=== PATIENT | female | born 1970 | race Caucasian/White ===

== ENCOUNTER 2017-05-24 13:27 | Inpatient (IN) ==
[2017-05-24 14:04] LABS: URINE CULTURE NEEDED? NO; URINE MICRO REVIEW NEEDED? NO; URINE SOURCE CLEAN CATCH
[2017-05-24 14:08] LABS: BILIRUBIN URINE NEGATIVE (NEGATIVE); BLOOD URINE SMALL (NEGATIVE); COLOR STRAW; GLUCOSE URINE >1000 mg/dL (NEGATIVE); LEUKOCYTES URINE NEGATIVE (NEGATIVE); NITRITE URINE NEGATIVE (NEGATIVE); PH URINE 5.5; PROTEIN URINE 100 mg/dL (NEGATIVE); SP GRAVITY URINE 1.024; TURBIDITY URINE CLEAR (CLEAR); UR EPITHELIAL CELLS <10 /HPF (<10); URINE BACTERIA 1+ /HPF; URINE RBC <10 /HPF (<10); URINE WBC <10 /HPF (<10); UROBILINOGEN URINE NORMAL (NORMAL)
[2017-05-24] MEDS ORDERED: ZOSYN 3.375 GM in NS 50 ML IV ONE (14:17)
--- NOTE | 2017-05-24 14:26 | PROVIDER DOCUMENTATION ---
HPI-General Adult - General Chief Complaint: General Adult Stated Complaint: INFECTED TOE/UTI SX Time Seen by Provider: 05/24/17 14:07 Source: patient Allergies/Adverse Reactions: Patient Allergies Allergy/AdvReac Type Severity Reaction Status Date / Time Sulfa (Sulfonamide AdvReac NAUSEA/VOMI Verified 05/24/17 15:37 Antibiotics) TING Home Medications: Home Medication List Medication Instructions Recorded Confirmed Last Taken Type LISINOpril [Prinivil] 20 mg PO DAILY #90 tablet 08/31/16 05/24/17 05/24/17 Rx - History of Present Illness -Gen Adult Nature of Presenting Problems: 46 y/o WF with a PMHx of DM, HTN and HLD, presenting today with two complaints: 1.) Possible UTI. Denies dysuria, but reports frequency and urgency. States there is "bubbling" after she urinates. Denies itching or discharge. She did just recently get 1 week ago. Denies fevers or chills. 2.) Wound to the right great toe: patient was previously hospitalized in August 2016 for a diabetic foot ulcer with MRSA. She states she completed a 2 week course of Vanc through a PICC in the left arm afterwards. She then lost her insurance and has not been able to seek medical treatment. She has been noncompliant with her medications, including her diabetic medications. Denies fevers, reports chills. The wound is in the same location as prior, stating she has lost feeling in the toe, it has become more pale, and a foul odor has developed. Denies discharge or loss of function. Review of Systems - Adult - REVIEW OF SYSTEMS - ADULT Constitutional: reports: see HPI, chillsreji. denies: fever Eyes: reports: no symptoms reported. denies: decreased vision, blurred vision, double vision, eye pain Ears, Nose, Mouth & Throat: reports: no symptoms reported. denies: ear pain, nose pain, throat pain Cardiovascular: reports: no symptoms reported. denies: chest pain, palpitations Respiratory: reports: no symptoms reported. denies: cough, shortness of breath , wheezing Gastrointestinal: reports: no symptoms reported. denies: abdominal pain, diarrhea, nausea, vomiting Genitourinary: reports: see HPI, frequency, hesitency. denies: dysuria, discharge, hematuria, incontinence Musculoskeletal: reports: see HPI, bone pain. denies: back pain, joint pain, muscle aches, neck pain Integumentary: reports: no symptoms reported. denies: rash Neurological: reports: no symptoms reported. denies: headache/migraines Psychiatric: reports: no symptoms reported Endocrine: reports: no symptoms reported Hematologic/Lymphatic: reports: no symptoms reported Allergic/Immunologic: reports: no symptoms reported All Other Systems: Reviewed and Negative Past History - Adult - PAST MEDICAL HISTORY-ADULT Review of Records: reports: Old Records Reviewed, Nursing Assessment Review, Medications Reviewed Major Childhood Illnesses: reports: denies history Cardiovascular: reports: HTN, hyperlipidemia Respiratory: reports: denies history Gastrointestinal: reports: GERD Obstetrical/Gynecological: reports: denies history Genitourinary: reports: denies history Musculoskeletal: reports: denies history Neurological: reports: denies history Endocrine/Immune: reports: Diabetes Other Conditions: reports: denies history - PRIOR SURGERIES/PROCEDURES Surgical/Procedure History: reports: BTL, - IMMUNIZATION STATUS Childhood Immunizations: UTD, See Nurse Assessment Flu Vaccine: See Nurse Assessment - FAMILY HISTORY Family History: HTN - SOCIAL HISTORY Smoking: less than 1 pack/day Provider spent 3-5 mins advising pt. on dangers of tobacco.: Discussed manners to quit use, and f/u contacts for add'l counseling. Substance Use: none/never Alcohol Use Frequency: never Living Situation: family Physical Exam-General - PHYSICAL EXAM-ADULT Initial Vital Signs Reviewed: Yes - CONSTITUTIONAL General Appearance: appears well, alert, no apparent distress - EYES Eyes: PERRL/EOMI, pink conjunctivae - HEAD, EARS, NOSE, MOUTH & THROAT HENMT: normocephalic/atraumatic, moist mucous membranes - NECK Neck: non-tender, full range of motion, supple, normal inspection - RESPIRATORY Respiratory: chest non-tender, lungs clear, normal breath sounds, no pleuratic chest pain, no respiratory distress, no accessory muscle use. negative: respiratory distress, decreased breath sounds, accessory muscle use, crackles, rales, rhonchi, wheezing - CARDIOVASCULAR Cardiovascular: normal peripheral pulses, regular rate, rhythm, no edema, no gallop, no murmur - LYMPHATIC Lymphatic: no adenopathy - MUSCULOSKELETAL Extremity: normal range of motion, non-tender, normal gait, other (there is an ulcer to the right great toe with subcutaneous exposure, pallor around the site and foul smell. I do not appreciate a purulent discharge. Cap refill at the end of the toe < 2 sec) Peripheral Pulses: dorsalis-pedis (R): 2+, dorsalis-pedis (L): 2+ - SKIN Integumentary: normal color, normal turgor, warm/dry, other (see above) - NEUROLOGIC Neurologic: grossly normal, no motor/sensory deficits - PSYCHIATRIC Psych/Mental Status: normal mood/affect, normal thought content, normal thought process, oriented x 3 Progress - PLAN OF CARE/RESULTS Progress/Plan/Lab Results: Vital Signs - 8 hr 05/24/17 13:45 Temperature 98.1 F Pulse Rate 79 Respiratory Rate 18 Blood Pressure 175/84 O2 Sat by Pulse Oximetry 100 Laboratory Results - last 24 hr 05/24/17 13:51 Urine Source CLEAN CATCH Urine Color STRAW Urine Turbidity CLEAR Urine pH 5.5 Ur Specific [place] 1.024 Urine Protein 100 A Ur Glucose (Stick) >1000 A Ur Ketones (Stick) NEGATIVE Urine Blood SMALL A Urine Nitrite NEGATIVE Urine Bilirubin NEGATIVE Urobilinogen Dipstick NORMAL Urine Leukocytes NEGATIVE Urine WBC (Auto) <10 Urine RBC (Auto) <10 U Epithel Cells (Auto) <10 Urine Bacteria (Auto) 1+ Orders Category Date Time Status Finger Stick Blood Sugar (ED) DIRECTED Care 05/24/17 14:18 Ordered Saline Loc NOW Care 05/24/17 14:16 Ordered TOE(S)-RIGHT [RAD] Stat Exams 05/24/17 14:17 Ordered A1C HGB W EST AVG GLUCOSE [CHEM] Stat Lab 05/24/17 14:16 Uncollected BLOOD CULTURE [BLDCUL] Stat Lab 05/24/17 14:16 Uncollected CBC WITH ELECTRONIC DIFF [HEME] Stat Lab 05/24/17 14:16 Uncollected COMPREHENSIVE METABOLIC PANEL [CHEM] Stat Lab 05/24/17 14:16 Uncollected LACTATE, PLASMA [CHEM] Stat Lab 05/24/17 14:17 Uncollected UA NIMS W/REFLEX CULT [URINALYSIS] Stat Lab 05/24/17 13:51 Completed Zosyn 3.375 gm/Ns IV Now Med 05/24/17 14:17 Ordered Piperacillin/Tazobactam [Zosyn] 3.375 gm 0.9% Sodium Chloride Inj [Ns] [address] Moeller to bedside with patient. Agrees with treatment, disposition and plan. Result Diagrams: 05/24/17 14:38 05/24/17 14:38 - CONSULTS/PCP/HOSPITALIST Notification #1 *Consult/PCP/Hospitalist*: Hospitalist Time Discussed: 16:09 Reason/Comments: diabetic foot ulcer with uncontrolled DM Consult Disposition: Admit Departure - Departure Date of Disposition Decision: 05/24/17 Time of Disposition Decision: 16:08 DIAGNOSIS: Hyperglycemia, Noncompliance Diabetic ulcer of toe Qualifiers: Diabetes mellitus type: type 2 Laterality: right Non-pressure ulcer stage: with fat layer exposed Qualified Code(s): E11.621 - Type 2 diabetes mellitus with foot ulcer Hypertension Qualifiers: Hypertension type: essential hypertension Qualified Code(s): I10 - Essential ( primary) hypertension Disposition: ADMITTED INPATIENT 09 Certified Medical Emergency: Emergent Condition: Stable Referrals and Follow-Ups: None,PCP [Primary Care Provider] - - Critical Care Note This patient required my direct & personal management of CC.: No Attestation - Physician/ JOSE ALBERTO Attestation Patient care was provided by Advanced Practice Provider:: Yes Advanced Practice Provider:: Amy Thompson Advanced Practice Provider documentation review:: The Mid-level provider documentation, treatment plan and medical decision making was reviewed by the physician who agrees with all treatment and medical decision making by the MLP. The physician spent face to face time with patient:: Yes Advanced Practice Provider documentation review:: Supervising physician onsite and consulted in the evaluation and care of this patient. The physician did have a face to face encounter with the patient.
--- NOTE | 2017-05-24 14:33 | Diag Imaging Result Doc PS360 ---
EXAM: TOE(S)-RIGHT INDICATION: right great toe lesion TECHNIQUE: 3 views COMPARISON: Foot radiograph dated 08/28/2016 FINDINGS: There is soft tissue edema involving the great toe laterally suggesting cellulitis. No discrete underlying erosions are appreciated to indicate osteomyelitis on the current study. However, there is a new calcific density associated with the soft tissues at the plantar aspect of the great toe underlying the base of the distal phalanx. This is in the region of a prior ulcer seen on the previous study. It probably represents a dystrophic calcification related to the prior tissue injury. IMPRESSION: Soft tissue edema associated with the great toe and apparent new soft tissue calcification as described. No definite osteomyelitis is appreciated by plain radiograph. Electronically signed by Yoshi Rizzo 05/24/2017 2:31 PM
[2017-05-24] MEDS ORDERED: NS 1,000 ML IV ONE (15:00)
[2017-05-24 15:24] LABS: MANUAL DIFF NEEDED? NO
[2017-05-24 15:31] LABS: BASO% 0.4 % (0.0-0.8); EOS# 0.05 X1000 (0.0-0.7); EOS% 0.9 % (0.0-10.0); HEMATOCRIT 33.1 % (37.0-47.0); HEMOGLOBIN 11.3 g/dL (12.0-16.0); LYMPH# 1.72 X1000 (1.2-3.4); LYMPH% 32.3 % (20.5-51.1); MCH 28.2 PG (27-31); MCHC 34.1 g/dL (33-37); MCV 82.5 FL (81-99); MONO# 0.34 X1000 (0.11-0.59); MONO% 6.4 % (1.7-9.3); MPV 11.5 FL (7.4-10.4); PLT 249 X1000 (130-400); RBC 4.01 XMIL (4.2-5.4)
[2017-05-24 15:58] LABS: ALBUMIN 4.2 g/dL (3.5-5.0); CALCIUM 8.8 mg/dL (8.8-10.2); POTASSIUM 4.2 mmol/L (3.5-5.1); TOTAL BILIRUBIN 0.35 mg/dL (0.20-1.00); TOTAL PROTEIN 7.4 g/dL (6.3-8.3)
[2017-05-24] MEDS ORDERED: VANCOMYCIN IV PER PHARMACY MISC SCH (16:15)
--- NOTE | 2017-05-24 17:57 | HISTORY AND PHYSICAL ---
HISTORY OF PRESENT ILLNESS: This is a 46-year-old, who was here back in August for diabetic foot ulcer. Her past medical history includes poorly-controlled diabetes mellitus type 2 started as gestational diabetes, hypertension and she had been treated in the right foot dorsal toe diabetic foot ulcer. I believe she had debridement and had extended course of IV vancomycin. I think it was a staph by her report. She lost her insurance. I think she stopped antibiotics. It was healing. In the last several weeks she has noticed drainage from that toe, a lot of callous formation. She has neuropathy, so she is not complaining of pain, but she has a purulent odor and drainage from the dorsal toe. Suspect infection again. We will need to admit her, debride it and begin antibiotics again. She has been followed by Dr. Mcpherson in the past. PAST MEDICAL HISTORY: 1. Poorly controlled diabetes mellitus type 2. 2. Hypertension. 3. Hyperlipidemia. 4. Poor medical compliance. 5. Diabetic neuropathy. PAST SURGICAL HISTORY: 1. section. 2. Tubal ligation. SOCIAL HISTORY: Patient denies any alcohol or tobacco. She works as an insurance professional, I think, in [place]. She was employed at the [employer] prior to that. FAMILY HISTORY: Father of myocardial infarction age 48. Her mother of cancer. She also had some female members with history of diabetes. ALLERGIES: Patient reports allergy to sulfa drugs. FAMILY HISTORY: Noncontributory REVIEW OF SYSTEMS: General: She denies any weight gain or loss. No fever or chills. She is not sure how her sugars are running. HEENT: Unremarkable. Respiratory: No increased work of breathing or dyspnea. Cardiovascular: No chest pain or tachy palpitation. GI/: No gross hematuria or dysuria. Musculoskeletal/Neurologic: No focal complaints. She does have peripheral neuropathy which is symmetrical in the lower extremities. PHYSICAL EXAMINATION: VITAL SIGNS: Temperature 98.1 degrees, pulse 79, respirations 18, blood pressure 175/84. HEENT: Pupils are equal and round. CVP less than 6 cm. LUNGS: Clear in all lung conner. CARDIOVASCULAR: Regular rhythm and rate without murmur or S3. ABDOMEN: Soft. SKIN: Warm and dry. Weight 250 pounds. Right big toe with dorsal ulcer surrounded by 4 or 5 cm thickness of callus with purulent material draining from it. LAB: White count 5330, hematocrit 33, platelet count 249,000. Sodium 135, potassium 4.2, chloride 97, BUN 29, creatinine 1.2. Liver functions: Glucose was 361, hemoglobin A1c was 14. Liver functions unremarkable. Albumin was 4.2. Urinalysis greater than 1000 glucose, 1+ bacteria. Toe x-ray done here in the emergency room soft tissue edema associated with the great toe. New soft-tissue calcification as described. No definite osteomyelitis on plain radiograph. ASSESSMENT/PLAN: Deep foot ulcer. Previous cultures grew staph. I am going to put her on Zosyn and vancomycin at this point. We have cultures steering our treatment. We will get Dr. Mcpherson involved again. She needs to be on a sliding scale insulin. Check pattern sugars. She is supposed to be on lisinopril 20 mg a day. We will get her back on that. I think that we could safely start her out on a split insulin 70/30, see if we could give her 10 units twice a day before breakfast and supper in addition to her sliding scale. She has normal renal function, so we will put her on Zosyn and we will do it 3.375 mg IV q.6 hours. Vancomycin we will load with a gram and have her dosed per pharmacy. cc: Onel Torres MD
[2017-05-24] MEDS ORDERED: VANCOMYCIN 2.5 GM in NS 500 ML IV ONE (18:00)
[2017-05-24] MEDS ORDERED: ZOFRAN IV PRN (20:07)
[2017-05-24] MEDS: HUMULIN R SUBQ SCH (22:24)
[2017-05-24] MEDS: NS 1,000 ML IV SCH (22:25)
[2017-05-24] MEDS: ZOSYN 3.375 GM in NS 50 ML IV SCH (23:38)
[2017-05-24] MEDS: HUMULIN 70/30 SUBQ SCH (23:39)
[2017-05-24] MEDS ORDERED: INSULIN PEN NEEDLES ONE (23:53)
[2017-05-25] MEDS: ZOSYN 3.375 GM in NS 50 ML IV SCH ×4 (04:20→21:00)
[2017-05-25] MEDS: HUMULIN R SUBQ SCH ×5 (06:38→23:57)
[2017-05-25 06:48] LABS: MANUAL DIFF NEEDED? NO
[2017-05-25 06:53] LABS: BASO% 0.5 % (0.0-0.8); EOS# 0.05 X1000 (0.0-0.7); EOS% 1.3 % (0.0-10.0); HEMATOCRIT 31.2 % (37.0-47.0); HEMOGLOBIN 10.5 g/dL (12.0-16.0); LYMPH# 1.43 X1000 (1.2-3.4); LYMPH% 37.9 % (20.5-51.1); MCH 28.5 PG (27-31); MCHC 33.7 g/dL (33-37); MCV 84.6 FL (81-99); MONO# 0.27 X1000 (0.11-0.59); MONO% 7.2 % (1.7-9.3); MPV 11.4 FL (7.4-10.4); NEUT% 53.1 % (42.2-75.2); PLT 228 X1000 (130-400); RBC 3.69 XMIL (4.2-5.4)
[2017-05-25 07:03] LABS: INR 0.95; PROTIME 9.9 Seconds (9.2-11.7); PTT 23.3 Seconds (22.0-36.0)
[2017-05-25 07:09] LABS: ALBUMIN 3.3 g/dL (3.5-5.0); CALCIUM 8.7 mg/dL (8.8-10.2); MAGNESIUM 1.8 mg/dL (1.5-2.7); POTASSIUM 4.2 mmol/L (3.5-5.1); TOTAL BILIRUBIN 0.53 mg/dL (0.20-1.00); TOTAL PROTEIN 6.4 g/dL (6.3-8.3)
[2017-05-25 07:28] LABS: FREE T4 1.15 ng/dL (0.93-1.70)
[2017-05-25] MEDS: TYLENOL PO PRN ×2 (07:45→19:19)
[2017-05-25] MEDS: LOVENOX SUBQ SCH (07:46)
[2017-05-25] MEDS: HUMULIN 70/30 SUBQ SCH ×2 (08:06→20:31)
[2017-05-25] MEDS: NS 1,000 ML IV SCH (08:09)
--- NOTE | 2017-05-25 08:22 | CONSULTATION ---
DATE OF CONSULTATION: 05/25/2017 CONCLUSION: Patient is admitted to the hospital with a very severe right great toe infection. The patient earlier this year had an infection in her great toe, and she was treated with 8 weeks of IV vancomycin, but unfortunately it appears that the infection has recurred. RECOMMENDATIONS: I agree with treating the patient with vancomycin and Zosyn, pending culture results. I discussed with the patient surgical options. I told her that if she received 8 weeks of IV antibiotics in the past year for the same infection and it was not cured that we may not be able to cure it with antibiotics. I told her I thought it would be reasonable to get an opinion of the surgeon as was to whether he thinks we should try antibiotics again, or if he should proceed with amputation. The patient is amenable to getting the consult. I put a consult in for Dr. Esposito to see the patient. DISCUSSION: The patient approximately a few weeks ago noticed a small little ulcer on her right great toe. She did not want to do much about it because she was getting , and she wanted to go on her honeymoon. When she got back, the right great toe became more swollen and erythematous, and spontaneously it drained out pus. The patient's CBC shows a white count of 3770, hemoglobin 10.5, and platelet count 228,000. Creatinine is 1.1. GFR is 54. Urinalysis showed bacteria but no white cells. A culture was taken from the right great toe. The Gram stain showed gram-positive cocci and gram-negative rods. CBC shows a white count of 3770, hemoglobin 10.5, and platelet count 228,000. The patient had a plain x-ray of her right foot, and no osteomyelitis in the right great toe was found. PAST MEDICAL HISTORY/REVIEW OF SYSTEMS: Eyes and Ears: She denied difficulty hearing or seeing. Neck: No stiffness. Respiratory: No cough or shortness of breath. Cardiac: No chest pain or palpitations. GI: No nausea, vomiting, or diarrhea. Genitourinary: No dysuria or flank pain. Neurologic: Patient has neuropathy manifested by decreased sensation in both legs. She does not have any seizures. Bones, Joints, Muscles: See present illness for discussion of the right great toe infection. Integument: No rash. PUBLIC HEALTH NUTRITIONIST HISTORY: She is a 2, para 2, AB 0. She delivered 1 of her children by . PREVIOUS HOSPITALIZATIONS AND OPERATIONS: The patient has had a labor and delivery, a . The patient has been in the hospital before because of infection of the right great toe, as mentioned above. The patient has had surgery on her eyes, which has helped a lot. The patient also has congestive heart failure. MEDICAL DISEASES: Positive for congestive heart failure, diabetes mellitus, high blood pressure, hyperlipidemia, and neuropathy of the legs. INFECTIOUS DISEASE HISTORY: Positive for right great toe infection, pneumonia and UTI. FAMILY HISTORY: Positive for diabetes mellitus, hypertension, myocardial infarction, and cancer. SOCIAL HISTORY: [place] She is allergic to sulfa. She recently got and went on a honeymoon. She sells life insurance. HOME MEDICATION: The patient's only home medication is lisinopril. She told me that she did not get her medications for diabetes because they were too expensive and she did not have coverage for them. PHYSICAL EXAMINATION: Vital Signs: Temperature is 98.4 degrees, pulse 65, respirations 19, blood pressure 125/64. Patient weighs 250 pounds. General: This is an obese, middle-aged female who is in no acute distress. Head, eyes, ears, nose, and throat: She can hear my spoken words and see near objects. No drainage noted from the nose or ears. The all oral cavity did not have any white patches on it. Neck: No stiffness. Thorax: No increased AP diameter of the chest. Lungs: Clear to auscultation. Cardiovascular: Heart rate is regular. Peripheral pulses are palpable. Abdomen: Soft and nontender. Extremities: The patient's right great toe is erythematous and swollen. It has a large plantar ulcer on it, and right now there is only some serial purulent drainage, but no surrounding erythema. Integument: No rash noted. Thank you for the consult. cc: Bal Mcpherson MD
[2017-05-25] MEDS: PRILOSEC PO SCH (09:03)
[2017-05-25] MEDS: PRINIVIL PO SCH (09:03)
--- NOTE | 2017-05-25 10:28 | Diag Imaging Result Doc PS360 ---
EXAM: MRI LOW EXTREMITY W/CON-RIGHT INDICATION: osteomyelitis of R great toe TECHNIQUE: MRI of the right foot with and without contrast. COMPARISON: 08/29/2016 FINDINGS: There is a skin defect at the plantar aspect of the distal great toe with surrounding soft tissue edema indicating cellulitis. This is similar but less severe than the previous study. Unlike the previous study, no well-defined abscess can be identified. There is also no distinct osseous marrow edema to indicate osteomyelitis, unlike the previous study. No new bony erosions are appreciated. The visualized tendinous structures appear to be intact. The visualized joint spaces are unchanged. IMPRESSION: Cellulitis at the plantar aspect of the great toe as described with no evidence of osteomyelitis on the current study. Please see above discussion. Electronically signed by Yoshi Rizzo 05/25/2017 10:26 AM
--- NOTE | 2017-05-25 17:30 | CONSULTATION ---
DATE OF CONSULTATION: 05/25/2017 HISTORY OF PRESENT ILLNESS: Ms. Jacqueline Duque is a 46-year-old white female, diabetic, who is admitted to our hospitalist with a recurrent right great toe infection. She has been treated for 8 weeks with IV antibiotics in the past because of this toe infection. She continues to have a large wound involving this toe with an ongoing what appears to be indolent infection. She has normal arterial flow to her feet bilaterally. We were asked to evaluate her for possible right great toe amputation. PAST MEDICAL HISTORY: Diabetes, hypertension, and hyperlipidemia. PAST SURGICAL HISTORY: and tubal ligation. ALLERGIES: Sulfa. MEDICATIONS: Tylenol, Lovenox, Humulin, Prinivil. She is on IV Zosyn and vancomycin because of her toe. SOCIAL HISTORY: She recently got . She is working in [employer]. She does not smoke. She lives in [place]. FAMILY HISTORY: Father at 48 of myocardial infarction. Mother of cancer, she also had a history of diabetes. REVIEW OF SYSTEMS: A 14-point review of systems was performed and was essentially negative except for the history of present illness. PHYSICAL EXAMINATION: General: Ms. Duque is overweight. She is a middle aged, white female, in no acute distress. HEENT Exam: No jaundice. No oral lesions. No cervical or supraclavicular lymphadenopathy. Heart: Has a regular rate. Lungs: Clear to auscultation and percussion bilaterally. Abdomen: Soft, nontender, without palpable mass. No costovertebral tenderness. Rectal/Vaginal: Exams were not performed. Extremities: She does have palpable peripheral pulses bilaterally throughout her lower extremities. She has a chronic open wound in the medial aspect of her right great toe with surrounding callus, it appears to be deep into the bone. Previous cultures grew staphylococcus. She was treated with IV antibiotics long-term as an outpatient without healing of this wound. She was readmitted with possible infection of the toe again, although it does not appear to have cellulitis, she does have this chronic open wound with callus of right great toe. MRI suggested cellulitis at the plantar aspect of the great toe but no evidence of osteomyelitis by MRI. IMPRESSION: Chronic infection with chronic open wound, right great toe. PLAN: She will probably need an amputation. I discussed that with her and her new at the bedside today. She does have good blood supply to the right foot. She is amenable to an amputation, because of her recent marriage and new job she wants to be as healthy as possible. I did discuss with her that her great toe is important for balance. We also discussed other risks of bleeding, infection. We will try to do this tomorrow if time permits. If not, we will reschedule time for her amputation. cc: Margarita Esposito MD
[2017-05-25] MEDS: VANCOMYCIN 2 GM in NS 500 ML IV SCH (18:57)
[2017-05-26] MEDS: ZOSYN 3.375 GM in NS 50 ML IV SCH ×4 (03:27→23:17)
[2017-05-26] MEDS: HUMULIN R SUBQ SCH ×5 (06:38→23:17)
[2017-05-26] MEDS: PRILOSEC PO SCH (08:44)
[2017-05-26] MEDS: LOVENOX SUBQ SCH (08:44)
[2017-05-26] MEDS: PRINIVIL PO SCH (08:44)
[2017-05-26] MEDS: HUMULIN 70/30 SUBQ SCH ×2 (08:49→23:18)
--- NOTE | 2017-05-26 14:13 | PROGRESS NOTE ---
DATE: 05/26/2017 SUBJECTIVE: Ms. Duque is in good spirits. She is going to have her toe amputated this evening and has not eaten all day. OBJECTIVE: Vital signs: Afebrile, temperature 97.8 degrees, pulse 77, respirations 18, blood pressure 155/94. Lungs: Are clear in all lung conner. Cardiovascular: Regular rhythm and rate without murmur or S3. Abdomen: Soft. Skin: Is warm and dry. LAB: Blood sugars 282, 234, 217. ASSESSMENT AND PLAN: 1. Chronic infection chronic open wound right big toe. Previous cultures grew Staphylococcus. She has good supply the right foot and will proceed with amputation. 2. Diabetes mellitus type 2. Continue to follow sugars. Continue sliding scale. 3. Peripheral neuropathy aware. Do not see any change in orders, is on piperacillin and vancomycin. cc: Onel Torres MD
[2017-05-26] MEDS ORDERED: FENTANYL ONE (16:47)
[2017-05-26] MEDS ORDERED: DIPRIVAN 1% ONE (16:47)
[2017-05-26] MEDS ORDERED: XYLOCAINE-MPF 2% ONE (16:50)
[2017-05-26] MEDS ORDERED: QUELICIN (DOSE) ONE (16:50)
[2017-05-26] MEDS ORDERED: VERSED ONE (17:15)
[2017-05-26] MEDS ORDERED: ZOFRAN ONE (17:19)
[2017-05-26] MEDS ORDERED: ROBINUL ONE (17:19)
[2017-05-26] MEDS ORDERED: LABETALOL ONE (18:30)
[2017-05-26] MEDS ORDERED: NORCO-5 ONE (18:50)
[2017-05-26] MEDS: DILAUDID ONE ×3 (18:57→19:11)
--- NOTE | 2017-05-26 21:48 | OPERATIVE NOTE ---
PROCEDURE DATE: 05/26/2017 PREOPERATIVE DIAGNOSES: 1. Chronic infected ulcer, right great toe. 2. Insulin-dependent diabetic. POSTOPERATIVE DIAGNOSES: 1. Chronic infected ulcer, right great toe. 2. Insulin-dependent diabetic. PRINCIPAL PROCEDURE: Right great toe amputation. SURGEON: Margarita Esposito MD. ANESTHESIA: General. ESTIMATED BLOOD LOSS: 30 mL. DRAINS: None. INDICATIONS: Jacqueline Duque is a 46-year-old white female diabetic who has developed a chronic open wound involving her right great toe. She has received 8 weeks of IV antibiotics in attempts to heal this toe and it has been unsuccessful. We discussed treatment options and she chose an amputation. FINDINGS: She had a chronic ulcer on the medial side of the right great toe. She has good blood supply to her feet with palpable dorsalis pedis and posterior tibial pulses. DESCRIPTION OF PROCEDURE: The patient was brought to the operating room, placed supine, received general anesthesia, was ventilated. Her right foot and toes were prepped and draped within a sterile field. I marked a racquet-type incision encompassing the base of the right great toe and extending on the medial aspect of the foot with a marker, and then I made that incision with a 15 blade scalpel. I used the cautery to take down the soft tissue to the bone circumferentially. We initially removed the toe at the metatarsal phalangeal joint but then I took the head of the 1st metatarsal bone using an oscillating saw. We also took the calcified bone within the soft tissue plantar aspect of our amputation site. Once that bone was debrided, any bleeding was controlled using the cautery. We thoroughly irrigated the wound and we closed this wound in layers. The deep soft tissue was closed with interrupted 3-0 Vicryl stitches. I then closed the wounds in layers. The dermis and subcutaneous tissue was closed with 3-0 popoff Vicryl stitches and then I closed the skin with interrupted vertical mattress 3-0 nylon stitches. Dressings were applied. She tolerated the procedure well with plans for her to go the recovery room with it elevated and then to the floor. cc: Margarita Esposito MD
[2017-05-26] MEDS: VANCOMYCIN 2 GM in NS 500 ML IV SCH (23:17)
[2017-05-27] MEDS: ZOSYN 3.375 GM in NS 50 ML IV SCH ×4 (03:37→22:02)
[2017-05-27] MEDS: HUMULIN R SUBQ SCH ×4 (06:55→22:03)
[2017-05-27] MEDS ORDERED: INSULIN PEN NEEDLES ONE (08:02)
--- NOTE | 2017-05-27 08:31 | PROGRESS NOTE ---
DATE: 05/27/2017 SUBJECTIVE: Patient doing okay, doing well after amputations. OBJECTIVE: Vital signs: The patient is currently afebrile. Her vital signs are stable. General: In no acute distress. Cardiovascular: Regular rate and rhythm. Lungs: Clear. Extremities: Amputation site is okay. ASSESSMENT AND PLAN: A 46-year-old female status post amputation of great toe. Postoperative state at this time doing well. She is having some postoperative nausea, and would like to see this resolved prior to any kind of plan for discharge. cc: Silver Esparza MD
[2017-05-27] MEDS: PRINIVIL PO SCH (09:03)
[2017-05-27] MEDS: PRILOSEC PO SCH (09:03)
[2017-05-27] MEDS: LOVENOX SUBQ SCH (09:04)
[2017-05-27] MEDS: HUMULIN 70/30 SUBQ SCH ×2 (09:04→21:59)
[2017-05-27] MEDS: NORCO-5 PO PRN ×3 (09:51→21:58)
--- NOTE | 2017-05-27 14:19 | PROGRESS NOTE ---
DATE: 05/27/2017 She had her toe amputation yesterday. Is requesting some [place] 5, stronger makes her nauseated and she was nauseated most of the morning. She is doing much better. EXAM: Afebrile, temp 98 degrees, pulse 84, respirations 20, blood pressure 155/78.Lungs: Clear in all lung conner. Cardiovascular: Regular rhythm and rate without murmur or S3. Abdomen: Soft. Skin: Warm and dry. Urine output over a 1000 mL. ASSESSMENT AND PLAN: 1. Status post amputation great right toe postoperative state. She is having some postoperative nausea and we would like to see this resolved and improved. We have given her some [place] 5. 2. Diabetes mellitus type 2. Blood sugars controlled. 3. Continue Zosyn and vancomycin for now. cc: Onel Torres MD
[2017-05-28] MEDS: VANCOMYCIN 2 GM in NS 500 ML IV SCH (01:06)
[2017-05-28] MEDS: ZOSYN 3.375 GM in NS 50 ML IV SCH ×4 (03:51→21:21)
[2017-05-28] MEDS: NORCO-5 PO PRN ×3 (03:51→21:21)
[2017-05-28] MEDS: HUMULIN R SUBQ SCH ×4 (06:21→21:23)
--- NOTE | 2017-05-28 07:29 | PROGRESS NOTE ---
DATE: 05/28/2017 SUBJECTIVE: Patient doing better. Her nausea has improved. OBJECTIVE: Vital Signs: Patient is currently afebrile. Her vital signs have been stable. General Examination: No acute distress. Cardiovascular: Regular rate and rhythm. Lungs: Grossly clear. Abdomen: Soft, nontender, nondistended. Extremities: Dressing in place at the amputation site. No signs of active bleeding. ASSESSMENT/PLAN: A 46-year-old, female, status post great toe amputation. Postoperative state. At this time, she seems to be doing well. We will have her dressing removed and taken down in the morning. Hopefully, she can be discharged out of the hospital here soon. Her nausea seems to be improving. cc: Silver Esparza MD
[2017-05-28] MEDS: LOVENOX SUBQ SCH (08:33)
[2017-05-28] MEDS: PRINIVIL PO SCH (08:33)
[2017-05-28] MEDS: PRILOSEC PO SCH (08:33)
[2017-05-28] MEDS: HUMULIN 70/30 SUBQ SCH ×2 (08:33→21:22)
--- NOTE | 2017-05-28 14:49 | PROGRESS NOTE ---
DATE: 05/28/2017 SUBJECTIVE: She is doing well. Pain is under good control. She is eating her lunch. No troubles and no complaints. Anticipating may be going home tomorrow. She had her toe amputated for a diabetic foot ulcer. OBJECTIVE: Vital signs: Temperature 97.4 degrees, pulse 69, respirations 18, blood pressure 115/69. Lungs: Are clear in all lung conner. Neck: No distended neck veins. Cardiovascular: Regular rate without murmur or S3. Abdomen: Soft. Extremities: The foot bandaged and dry. LABORATORY: Blood sugar has been running a little high, 228, 278, 249. Hematocrit was 31, on 05/25. Her creatinine was 1.1. I may check a CBC and hemoglobin A1c and a basic metabolic in the morning. We will continue present dressing change. I am going to follow her sugars and she may need to be on some 70/30 insulin, maybe a split dosing. cc: Onel Torres MD
[2017-05-29] MEDS: VANCOMYCIN 2 GM in NS 500 ML IV SCH (00:08)
[2017-05-29] MEDS: ZOSYN 3.375 GM in NS 50 ML IV SCH (03:50)
[2017-05-29] MEDS: NORCO-5 PO PRN ×3 (03:55→16:00)
[2017-05-29 06:31] LABS: MANUAL DIFF NEEDED? NO
[2017-05-29 06:42] LABS: BASO% 0.2 % (0.0-0.8); EOS# 0.05 X1000 (0.0-0.7); EOS% 0.9 % (0.0-10.0); HEMOGLOBIN 9.2 g/dL (12.0-16.0); LYMPH# 1.96 X1000 (1.2-3.4); LYMPH% 35.6 % (20.5-51.1); MCHC 31.7 g/dL (33-37); MCV 88.1 FL (81-99); MONO# 0.39 X1000 (0.11-0.59); MONO% 7.1 % (1.7-9.3); MPV 11.5 FL (7.4-10.4); NEUT% 56.2 % (42.2-75.2); PLT 192 X1000 (130-400); RBC 3.29 XMIL (4.2-5.4)
[2017-05-29] MEDS: HUMULIN R SUBQ SCH ×3 (07:00→16:02)
[2017-05-29 07:15] LABS: CALCIUM 8.5 mg/dL (8.8-10.2); POTASSIUM 4.3 mmol/L (3.5-5.1)
--- NOTE | 2017-05-29 08:36 | PROGRESS NOTE ---
DATE: 05/29/2017 SUBJECTIVE: Jcaqueline Duque is now postop day 3 from a right great toe amputation for a chronic open wound and infection. The dressing was changed this morning. OBJECTIVE: The wound is intact. There is no evidence of infection. She has good blood supply to her foot. PLAN: We need to stop her IV antibiotics. I will get a prosthetic company to evaluate her for offloading her weight from the amputation site and also consider diabetic shoes. The sutures need to stay at least 2 weeks. She needs to continue nonweightbearing distal part of her foot; only heel touching for now. cc: Margarita Esposito MD
[2017-05-29] MEDS: PRINIVIL PO SCH (08:44)
[2017-05-29] MEDS: LOVENOX SUBQ SCH (08:44)
[2017-05-29] MEDS: PRILOSEC PO SCH (08:44)
[2017-05-29] MEDS: HUMULIN 70/30 SUBQ SCH (08:45)
[2017-05-29 15:28] VITALS: BP 140/71
--- NOTE | 2017-05-29 16:55 | DISCHARGE SUMMARY ---
ADMISSION DATE: 05/24/2017 DISCHARGE DATE: 05/29/2017 HOSPITAL COURSE: She is a 46-year-old, who presented in August for diabetic foot ulcer, past medical history includes poorly-controlled diabetes mellitus type 2, started with gestational diabetes. Hypertension. Has been treated in the right foot dorsal toe with diabetic foot ulcer. She had debridement and has been on course of IV vancomycin, but she has had more trouble, more drainage and more swelling. She does have peripheral neuropathy from diabetes. PAST MEDICAL HISTORY: 1. Poorly controlled diabetes mellitus type 2. 2. Hypertension. 3. Hyperlipidemia. 4. Poor medical compliance. 5. Diabetic neuropathy. The patient was put on antibiotics, vancomycin and Zosyn. Dr. Esparza evaluated and felt she needed debridement, right great toe amputation. She tolerated procedure well. Dr. Mcpherson is following for Infectious Disease. Did not feel she needed any further antibiotic and felt she could be discharged home. She will follow up with Dr. Esparza. Follow up with primary care for diabetes. HOME MEDICATIONS: I will give her some [place] 5 she can take p.r.n. She is on Prinivil 20 mg a day. Prilosec 40 mg a day. I think we can stop the Prilosec and she will go back on her home doses. I think she is taking metformin 1000 mg twice a day and she is taking Lantus 40 units which were not listed on her daily medications. We will discharge her home. cc: Onel Torres MD
== END 2017-05-29 17:32 | disposition home health service (06) ==
LOC: ED 13:27 → 3N 13:28
PROVIDERS: ATTEND Emergency Medicine

== ENCOUNTER 2018-10-26 12:09 | Observation (INO) ==
--- NOTE | 2018-10-26 12:48 | EKG Report ---
Test Performed on : 10/26/2018 12:35:41 PM Test Reason : SOB Blood Pressure : / mmHG Vent. Rate : 074 BPM Atrial Rate : 074 BPM P-R Int : 200 ms QRS Dur : 094 ms QT Int : 398 ms P-R-T Axes : 039 009 021 degrees QTc Int : 441 ms Normal sinus rhythm. Cannot rule out Anterior infarct (cited on or before 05-SEP-2017) Abnormal ECG When compared with ECG of 26-JUL-2018 09:21, No significant change was found Unconfirmed Result
[2018-10-26 13:07] LABS: BASO# 0.04 X1000 (0.0-0.2); BASO% 0.8 % (0.0-0.8); EOS% 1.9 % (0.0-10.0); HEMATOCRIT 33.5 % (37.0-47.0); HEMOGLOBIN 10.9 g/dL (12.0-16.0); IMM GRAN# 0.02 X1000 (0.0-0.04); IMM GRAN% 0.4 % (0.0-0.5); LYMPH# 1.73 X1000 (1.2-3.4); LYMPH% 32.5 % (20.5-51.1); MCHC 32.5 g/dL (33-37); MCV 86.1 FL (81-99); MONO# 0.34 X1000 (0.11-0.59); MONO% 6.4 % (1.7-9.3); MPV 11.5 FL (7.4-10.4); PLT 260 X1000 (130-400); RBC 3.89 XMIL (4.2-5.4); RDW 12.8 % (11.5-14.5); WBC 5.33 X1000 (4.8-10.8)
[2018-10-26 13:16] LABS: INR 0.86; PROTIME 12.5 Seconds (11.0-16.0)
[2018-10-26 13:17] LABS: PTT 30.1 Seconds (22.3-41.8)
--- NOTE | 2018-10-26 13:25 | Diag Imaging Result Doc PS360 ---
EXAM: CHEST-2 VIEWS - 10/26/2018 HISTORY: sob TECHNIQUE: Chest two views COMPARISON: 07/26/2018 portable chest and 07/24/2018 chest two views FINDINGS: Heart size appears within normal limits. There is mild tortuosity of the thoracic aorta similar to prior. There are stable small right midlung granuloma from old granulomatous disease. The lungs otherwise appear clear. There is no pleural effusion or pneumothorax identified. There is old compression deformity of mid to lower thoracic vertebral body noted. IMPRESSION: No evidence of acute disease. Electronically signed by Marcelo Lorenzana 10/26/2018 1:23 PM
[2018-10-26 13:27] LABS: ALBUMIN 3.6 g/dL (3.5-5.0); CALCIUM 8.7 mg/dL (8.8-10.2); CREATININE 2.6 mg/dL (0.5-0.9); POTASSIUM 5.6 mmol/L (3.5-5.1); TOTAL BILIRUBIN 0.26 mg/dL (0.20-1.00); TOTAL PROTEIN 7.1 g/dL (6.3-8.3)
[2018-10-26] MEDS ORDERED: NITROGLYCERIN TOP ONE (17:27)
[2018-10-26] MEDS ORDERED: LASIX IV ONE ×2 (17:27→21:24)
[2018-10-26] MEDS ORDERED: HUMALOG IV ONE (17:42)
[2018-10-26 18:26] LABS: URINE SOURCE CLEAN CATCH
[2018-10-26 18:36] LABS: BILIRUBIN URINE NEGATIVE (NEGATIVE); BLOOD URINE SMALL (NEGATIVE); COLOR YELLOW; GLUCOSE URINE >1000 mg/dL (NEGATIVE); KETONE URINE NEGATIVE (NEGATIVE); LEUKOCYTES URINE MODERATE (NEGATIVE); NITRITE URINE NEGATIVE (NEGATIVE); PH URINE 6.5; PROTEIN URINE 300 mg/dL (NEGATIVE); SP GRAVITY URINE 1.016; TURBIDITY URINE HAZY (CLEAR); UROBILINOGEN URINE NORMAL (NORMAL)
[2018-10-26 18:38] LABS: UR EPITHELIAL CELLS <10 /HPF (<10); URINE BACTERIA 1+ /HPF; URINE RBC <10 /HPF (<10); URINE WBC TNTC /HPF (<10)
[2018-10-26] MEDS ORDERED: LABETALOL IV ONE (19:36)
--- NOTE | 2018-10-26 20:03 | HISTORY AND PHYSICAL ---
HISTORY OF PRESENT ILLNESS: Ms. Gomez is followed by Dr. Euceda. Was last here with shortness of breath. This is a 48-year-old female. PAST MEDICAL HISTORY: 1. Diabetes mellitus type 2. 2. Hypertension. 3. Hyperlipidemia. 4. Osteoarthritis. 5. Diabetic neuropathy. She reports that she has been out of her medication because she had no money for about 4 weeks. So no Lasix and no blood pressure medicines and she has noticed some swelling, feels she is more short of breath and did give her some Lasix when she came here. She still does not feel like she is back to baseline. She denies chest pain or tachy palpitation. She has had osteomyelitis of her right foot in the past, hypertension, questionable congestive heart failure, and looking back at her records for left ventricular, an echocardiogram was done on 09/11/2017. Normal left ventricular cavity size. Ejection fraction 60% to 65%. Aortic valve leaflets were trileaflet. Mitral valve was normal. Tricuspid valve was normal. Pulmonic valve was normal so I do not see where she has had another echocardiogram since that time but probably need to look at her left ventricular function again. I am not sure she is checking her sugars. PAST SURGICAL HISTORY: section and tubal ligation in the past. SOCIAL HISTORY: Patient denies any alcohol or tobacco. No illicit drugs. FAMILY HISTORY: Father from myocardial infarction at age 48. Mother from cancer. MEDICATIONS: She is out of all of her medications. ALLERGIES: She is allergic to sulfa antibiotics. Otherwise no allergies. REVIEW OF SYSTEMS: Constitutional: She is not sure if she has had any weight gain or loss but she feels like she is retaining fluid. HEENT: No trouble with visual or hearing acuity. Respiratory: No increased work of breathing or dyspnea. Cardiovascular: No chest pain or tachy palpitation. GI/: Unremarkable. Musculoskeletal/Neurologic: No significant complaints. Endocrinologic/Hematologic: No significant history. PHYSICAL EXAMINATION: VITAL SIGNS: Today temperature 97.8 degrees, pulse 74, respirations 20, blood pressure 204/91, O2 saturations 99%, height was 5 foot 10 inches, weight 270. NECK: No distended neck veins. No cervical or supraclavicular adenopathy. No thyromegaly. LUNGS: Clear in all lung conner. ABDOMEN: Soft. Nondistended. EXTREMITIES: No pedal edema. LABORATORY STUDIES: Weight 270 pounds, height 5 feet 10 inches. Fingersticks 233 mg/dL. Her white blood cell count 5333, hematocrit 33, platelet count 260,000. Sodium 136, potassium 5.6, chloride 101, BUN 41, creatinine 2.6. Calcium 8.7. AST 11, ALT 9. Troponin was less than 0.01. ProBNP is 947. Chest x-ray: No evidence of acute disease. Heart size within normal limits. Mild tortuosity of the thoracic aorta. There is some small granuloma, old granulomatous disease. Lungs otherwise normal. Really no sign of pulmonary hypertension. HOME MEDICATIONS: At home she takes atenolol 50 mg twice a day, Catapres I think it is 0.2 mg t.i.d., she takes hydrocodone for pain q.6 h., she has Prinivil 20 mg a day, she is on metformin 1000 mg twice a day, and she takes pravastatin 40 mg a day, Januvia 100 mg a day. So, we will see if we can get her back on her blood pressure medications and her blood pressure down. She does not appear to have a lot of pulmonary edema pulmonary venous hypertension so she says she was on some Lasix and she has run out of her Lasix but I do not see that listed on her home medications. I will give her 1 dose of Lasix this evening and see if we can help get her blood pressure down. cc: Onel Trores MD
[2018-10-26] MEDS ORDERED: PHENERGAN PO PRN (21:24)
[2018-10-26] MEDS ORDERED: TYLENOL PO PRN (21:24)
[2018-10-26] MEDS ORDERED: NORCO-10 PO PRN (21:24)
[2018-10-26] MEDS ORDERED: BASAGLAR SUBQ SCH (21:24)
[2018-10-26] MEDS ORDERED: ZOFRAN IV PRN (21:24)
[2018-10-26] MEDS ORDERED: ANAPROX PO SCH (21:24)
[2018-10-26] MEDS: PRILOSEC PO SCH (22:45)
[2018-10-26] MEDS: GLUCOPHAGE PO SCH (22:46)
[2018-10-26] MEDS: NAPROSYN PO SCH (22:46)
[2018-10-26] MEDS: TENORMIN PO SCH (22:46)
[2018-10-26] MEDS ORDERED: INSULIN PEN NEEDLES ONE (22:53)
--- NOTE | 2018-10-27 01:43 | PROVIDER DOCUMENTATION ---
This chart was entered by Greg Bueno Scribe, acting as scribe for Tiffany Walker MD. HPI-Respiratory General - General Chief Complaint: Shortness of Breath Stated Complaint: SOB,CHF,KIDNEY FAILURE Time Seen by Provider: 10/26/18 17:07 Source: patient Allergies/Adverse Reactions: Patient Allergies Allergy/AdvReac Type Severity Reaction Status Date / Time Sulfa (Sulfonamide AdvReac NAUSEA/VOMI Verified 07/26/18 10:21 Antibiotics) TING Home Medications: Home Medication List Medication Instructions Recorded Confirmed Last Taken Type Insulin Glargine [Lantus] 40 unit SUBQ QHS #120 insuln.pen 05/29/17 12/29/17 Rx Atenolol 50 mg PO BID 09/11/17 12/29/17 12/29/17 04:30 History Pravastatin Sodium 40 mg PO DAILY 09/11/17 12/29/17 12/28/17 20:30 History Sitagliptin [Januvia] 100 mg PO DAILY 09/11/17 12/29/17 12/28/17 07:00 History LISINOpril [Prinivil] 20 mg PO DAILY 12/27/17 12/29/17 12/28/17 07:00 History Metformin HCl 1,000 mg PO BID 12/27/17 12/29/17 12/28/17 20:30 History Omeprazole 40 mg PO DAILY 12/27/17 12/29/17 12/29/17 04:30 History Hydrocodone/Acetaminophen [[place] 1 each PO Q6H PRN PRN #12 tablet 12/29/17 Unknown Rx 10-325 Tablet] Promethazine [Phenergan] 25 mg PO Q6H PRN PRN #5 tablet 12/29/17 Unknown Rx Hydrocodone/APAP 7.5 mg/325 mg 1 each PO Q6H PRN #12 tablet 01/19/18 Unknown Rx [[place]-7.5] Naproxen Sodium [Anaprox Ds] 550 mg PO BID #20 tablet 01/19/18 Unknown Rx Ondansetron [Zofran Odt] 8 mg PO TID #30 tab.rapdis 01/19/18 Unknown Rx Cephalexin [Keflex] 500 mg PO BID #20 cap 07/26/18 Unknown Rx Clonidine [Catapres] 2 tab PO TID #42 tab 07/26/18 Unknown Rx - History of Present Illness-Resp Nature of Presenting Problem: 48 y/o F presents to the ED c/o shortness of breath and leg swelling. Onset x2 weeks ago. Patient reports that she is out of Lasix for 2 weeks. Patient sleeps in the recliner at 75 degrees. Denies chest pain, cough or vomiting. Severity in ED: reports: mild Timing: reports: still present Cough Quality/Degree: reports: no cough Current Respiratory Medication Therapy: Initiated see nurses note Modifying Factors: improves with: nothing Associated Symptoms: reports: shortness of breath Similar Symptoms Previously?: No Recently seen or treated by another doctor?: No Review of Systems - Adult - REVIEW OF SYSTEMS - ADULT Constitutional: denies: chills, fever Cardiovascular: denies: chest pain, palpitations Respiratory: reports: shortness of breath. denies: cough Gastrointestinal: denies: diarrhea, nausea, vomiting Past History - Adult - PAST MEDICAL HISTORY-ADULT Review of Records: reports: Medications Reviewed Major Childhood Illnesses: reports: denies history Cardiovascular: reports: CHF, HTN, hyperlipidemia Respiratory: reports: denies history Gastrointestinal: reports: GERD Obstetrical/Gynecological: reports: denies history Genitourinary: reports: kidney disease Musculoskeletal: reports: denies history Neurological: reports: denies history Endocrine/Immune: reports: Diabetes Other Conditions: reports: denies history - PRIOR SURGERIES/PROCEDURES Surgical/Procedure History: reports: cholecystectomy, BTL, - IMMUNIZATION STATUS Childhood Immunizations: UTD, See Nurse Assessment Flu Vaccine: See Nurse Assessment - FAMILY HISTORY Family History: reviewed, not pertinent, HTN Physical Exam-General - PHYSICAL EXAM-ADULT Initial Vital Signs Reviewed: Yes - CONSTITUTIONAL General Appearance: alert, no apparent distress - NECK Neck: full range of motion, normal inspection - RESPIRATORY Respiratory: lungs clear, normal breath sounds, no respiratory distress, no accessory muscle use - CARDIOVASCULAR Cardiovascular: normal peripheral pulses, regular rate, rhythm, JVD (pitting edema +1 up to mid gonsales) - GASTROINTESTINAL (ABDOMEN) Abdominal Exam: normal bowel sounds, non tender, soft - MUSCULOSKELETAL Extremity: normal range of motion, normal capillary refill - SKIN Integumentary: normal color, warm/dry - PSYCHIATRIC Psych/Mental Status: normal mood/affect, oriented x 3 Progress - PLAN OF CARE/RESULTS Progress/Plan/Lab Results: Vital Signs - 8 hr 10/26/18 18:32 10/26/18 18:33 10/26/18 18:40 Pulse Rate Blood Pressure 220/124 O2 Sat by Pulse Oximetry 100 100 100 10/26/18 18:50 10/26/18 19:01 10/26/18 19:03 Pulse Rate Blood Pressure 222/139 O2 Sat by Pulse Oximetry 98 98 99 10/26/18 19:10 10/26/18 19:20 10/26/18 19:30 Pulse Rate Blood Pressure O2 Sat by Pulse Oximetry 100 100 99 10/26/18 19:33 10/26/18 19:40 10/26/18 19:48 Pulse Rate Blood Pressure 237/125 216/113 O2 Sat by Pulse Oximetry 100 100 100 10/26/18 19:50 10/26/18 20:00 10/26/18 20:04 Pulse Rate Blood Pressure 258/137 O2 Sat by Pulse Oximetry 100 100 10/26/18 20:05 10/26/18 20:07 10/26/18 20:10 Pulse Rate Blood Pressure 225/118 192/86 O2 Sat by Pulse Oximetry 99 100 10/26/18 20:13 10/26/18 21:24 Pulse Rate 71 Blood Pressure 198/102 O2 Sat by Pulse Oximetry 98 Laboratory Results - last 24 hr 10/26/18 10/26/18 10/26/18 12:38 12:38 12:38 WBC 5.33 RBC 3.89 L Hgb 10.9 L Hct 33.5 L MCV 86.1 MCH 28.0 MCHC 32.5 L RDW Std Deviation 12.8 Plt Count 260 MPV 11.5 H Immature Gran % (Auto) 0.4 Neut % (Auto) 58.0 Lymph % (Auto) 32.5 Oliver % (Auto) 6.4 Eos % (Auto) 1.9 Baso % (Auto) 0.8 Immature Gran # (Auto) 0.02 Neut # (Auto) 3.10 Lymph # (Auto) 1.73 Oliver # (Auto) 0.34 Eos # (Auto) 0.10 Baso # (Auto) 0.04 PT INR PTT (Actin FS) Sodium 136 Potassium 5.6 H Chloride 101 Carbon Dioxide 22 L Anion Gap 13 BUN 41 H Creatinine 2.6 H Estimated GFR/1.73 m2 20 BUN/Creatinine Ratio 16 Glucose 347 H POC Glucose Calculated Osmolality 296 Calcium 8.7 L Total Bilirubin 0.26 AST 11 ALT 9 L Alkaline Phosphatase 86 Creatine Kinase 75 Troponin T Kuo-W-Vcvplffjdib Pept 947 H Total Protein 7.1 Albumin 3.6 Globulin 3.5 Albumin/Globulin Ratio 1.0 Urine Source Urine Color Urine Turbidity Urine pH Ur Specific [place] Urine Protein Ur Glucose (Stick) Ur Ketones (Stick) Urine Blood Urine Nitrite Urine Bilirubin Urobilinogen Dipstick Urine Leukocytes Urine WBC (Auto) Urine RBC (Auto) U Epithel Cells (Auto) Urine Bacteria (Auto) 10/26/18 10/26/18 10/26/18 12:38 12:38 18:19 WBC RBC Hgb Hct MCV MCH MCHC RDW Std Deviation Plt Count MPV Immature Gran % (Auto) Neut % (Auto) Lymph % (Auto) Oliver % (Auto) Eos % (Auto) Baso % (Auto) Immature Gran # (Auto) Neut # (Auto) Lymph # (Auto) Oliver # (Auto) Eos # (Auto) Baso # (Auto) PT 12.5 INR 0.86 PTT (Actin FS) 30.1 Sodium Potassium Chloride Carbon Dioxide Anion Gap BUN Creatinine Estimated GFR/1.73 m2 BUN/Creatinine Ratio Glucose POC Glucose Calculated Osmolality Calcium Total Bilirubin AST ALT Alkaline Phosphatase Creatine Kinase Troponin T < 0.010 Tud-M-Nqhlwfphnce Pept Total Protein Albumin Globulin Albumin/Globulin Ratio Urine Source CLEAN CATCH Urine Color YELLOW Urine Turbidity HAZY Urine pH 6.5 Ur Specific [place] 1.016 Urine Protein 300 A Ur Glucose (Stick) >1000 A Ur Ketones (Stick) NEGATIVE Urine Blood SMALL A Urine Nitrite NEGATIVE Urine Bilirubin NEGATIVE Urobilinogen Dipstick NORMAL Urine Leukocytes MODERATE A Urine WBC (Auto) TNTC A Urine RBC (Auto) <10 U Epithel Cells (Auto) <10 Urine Bacteria (Auto) 1+ 10/26/18 18:27 WBC RBC Hgb Hct MCV MCH MCHC RDW Std Deviation Plt Count MPV Immature Gran % (Auto) Neut % (Auto) Lymph % (Auto) [place] % (Auto) Eos % (Auto) Baso % (Auto) Immature Gran # (Auto) Neut # (Auto) Lymph # (Auto) [place] # (Auto) Eos # (Auto) Baso # (Auto) PT INR PTT (Actin FS) Sodium Potassium Chloride Carbon Dioxide Anion Gap BUN Creatinine Estimated GFR/1.73 m2 BUN/Creatinine Ratio Glucose POC Glucose 233 H Calculated Osmolality Calcium Total Bilirubin AST ALT Alkaline Phosphatase Creatine Kinase Troponin T Qsy-J-Ryiotrcsnea Pept Total Protein Albumin Globulin Albumin/Globulin Ratio Urine Source Urine Color Urine Turbidity Urine pH Ur Specific [place] Urine Protein Ur Glucose (Stick) Ur Ketones (Stick) Urine Blood Urine Nitrite Urine Bilirubin Urobilinogen Dipstick Urine Leukocytes Urine WBC (Auto) Urine RBC (Auto) U Epithel Cells (Auto) Urine Bacteria (Auto) Orders Category Date Time Status Admit - [facility] Routine AdmDCTranf 10/26/18 21:24 Active Activity - Up with Assistance ORDERED Care 10/26/18 21:24 Active Apply Mechanical Device [QM] ORDERED Care 10/26/18 21:24 Active Cardiac Monitoring DIRECTED Care 10/26/18 12:39 Completed Currently Rec Mechanical Proph [QM] ROUTINE Care 10/26/18 21:24 Active FSBS/Accucheck Result AC + HS Care 10/26/18 21:24 Active Intake and Output-Strict ORDERED Care 10/26/18 21:24 Active Oxygen Therapy- ED Nursing DIRECTED Care 10/26/18 12:39 Completed Resuscitation Status Routine Care 10/26/18 19:33 Ordered Saline Loc NOW Care 10/26/18 12:39 Active Vital Signs Order Q 8-HR ASSESS Care 10/26/18 21:24 Active Z-Document. for Tele Applied ORDERED Care 10/26/18 21:24 Completed Diabetic Diet Diet 10/26/18 21:24 Active CHEST-2 VIEWS [RAD] Stat Exams 10/26/18 12:39 Completed CBC WITH DIFF [HEME] Routine Lab 10/27/18 06:00 Ordered CBC WITH ELECTRONIC DIFF [HEME] Stat Lab 10/26/18 12:38 Completed CK PROFILE [SP CHEM] Stat Lab 10/26/18 12:38 Completed COMPREHENSIVE METABOLIC PANEL [CHEM] Routine Lab 10/27/18 06:00 Ordered COMPREHENSIVE METABOLIC PANEL [CHEM] Stat Lab 10/26/18 12:38 Completed MAGNESIUM [CHEM] Routine Lab 10/27/18 06:00 Ordered PRO B-NATRIURETIC PEPTIDE Stat Lab 10/26/18 12:38 Completed PROTIME WITH INR [COAG] Stat Lab 10/26/18 12:38 Completed PTT [COAG] Stat Lab 10/26/18 12:38 Completed TROPONIN T Routine Lab 10/26/18 22:25 Completed TROPONIN T Stat Lab 10/26/18 12:38 Completed TSH Routine Lab 10/27/18 06:00 Ordered URINALYSIS W/POSS RFLX CULT [URINALYSIS] Stat Lab 10/26/18 18:19 Completed URINE CULTURE [RM] Routine Lab 10/26/18 18:39 Received Acetaminophen [Tylenol] Med 10/26/18 21:24 Active 650 mg PO Q6H PRN PRN Atenolol [Tenormin] Med 10/26/18 21:24 Active 50 mg PO BID Clonidine [Catapres] Med 10/27/18 09:00 Pending DOSE mg PO TID Furosemide [Lasix] Med 10/26/18 21:24 Discontinued 40 mg IV NOW ONE Furosemide [Lasix] Med 10/26/18 17:27 Discontinued 60 mg IV NOW ONE Hydrocodone/APAP 10 mg/325 mg [[place]-10] Med 10/26/18 21:24 Active 1 each PO Q6H PRN PRN Insulin Glargine [Basaglar] Med 10/26/18 21:24 Active 40 unit SUBQ QHS Insulin Lispro [Humalog] Med 10/26/18 17:42 Discontinued 4 units IV NOW ONE LISINOpril [Prinivil] Med 10/27/18 09:00 Active 20 mg PO DAILY Labetalol Med 10/26/18 19:36 Discontinued 20 mg IV NOW ONE Metformin [Glucophage] Med 10/26/18 21:24 Active 1,000 mg PO BID Naproxen Sodium [Anaprox] Med 10/26/18 21:24 Discontinued 550 mg PO BID Nitroglycerin Med 10/26/18 17:27 Discontinued 0.5 inch TOP NOW ONE Omeprazole [Prilosec] Med 10/26/18 21:24 Active 40 mg PO BID Ondansetron Odt [Zofran Odt] Med 10/27/18 09:00 Pending 8 mg PO TID Ondansetron [Zofran] Med 10/26/18 21:24 Active 4 mg IV Q4H PRN PRN PRAVAstatin [Pravachol] Med 10/27/18 09:00 Active 40 mg PO DAILY Promethazine [Phenergan] Med 10/26/18 21:24 Active 25 mg PO Q6H PRN PRN Sitagliptin [Januvia] Med 10/27/18 09:00 Active 100 mg PO DAILY CP/SOB/Palp >45 yrs of Age Stat Oth 10/26/18 12:39 Ordered Telemetry [OM.EQ] Routine Oth 10/26/18 21:24 Active EKG [EKG] Routine Ther 10/27/18 08:00 Ordered EKG [EKG] Stat Ther 10/26/18 12:39 Draft Transfer/Admit Order [TRANSFER] Routine Transfer 10/26/18 19:31 Completed Result Diagrams: 10/26/18 12:38 10/26/18 12:38 - XRAY 1 XRAY Study: Chest Impression: See EMR Report ( EXAM: CHEST-2 VIEWS - 10/26/2018 HISTORY: sob TECHNIQUE: Chest two views COMPARISON: 07/26/2018 portable chest and 2017 chest two views FINDINGS: Heart size appears within normal limits. There is mild tortuosity of the thoracic aorta similar to prior. There are stable small right midlung granuloma from old granulomatous disease. The lungs otherwise appear clear. There is no pleural effusion or pneumothorax identified. There is old compression deformity of mid to lower thoracic vertebral body noted. IMPRESSION: No evidence of acute disease. Electronically signed by Marcelo Lorenzana 10/26/2018 1:23 PM 10/26/18 1323 Interpreting Physician: Marcelo Lorenzana MD Dictated Date/Time: 10/26 1321 cc: Leonard Pratt MD; Ashley Euceda MD) - CONSULTS/PCP/HOSPITALIST Notification #1 *Consult/PCP/Hospitalist*: Dr. Sanches Time Discussed: 18:40 Consult Disposition: Will see in ED Departure - Departure Date of Disposition Decision: 10/26/18 Time of Disposition Decision: 18:40 DIAGNOSIS: CHF exacerbation Qualifiers: Heart failure type: unspecified Qualified Code(s): I50.9 - Heart failure, unspecified Disposition: ADMITTED INPATIENT 09 Certified Medical Emergency: Emergent Condition: Stable - Critical Care Note This patient required my direct & personal management of CC.: No Attestation - Physician/ JOSE ALBERTO Attestation Patient care was provided by Advanced Practice Provider:: No The physician spent face to face time with patient:: Yes Advanced Practice Provider documentation review:: Supervising physician onsite and consulted in the evaluation and care of this patient. The physician did have a face to face encounter with the patient. This chart was documented by the indicated scribe, (Greg Bueno, Sudha) and accurately reflects the services I performed and decisions made by me, Tiffany Walker MD, as attested by the provider's signature.
[2018-10-27 06:42] LABS: BASO# 0.03 X1000 (0.0-0.2); BASO% 0.5 % (0.0-0.8); EOS# 0.07 X1000 (0.0-0.7); EOS% 1.3 % (0.0-10.0); HEMATOCRIT 28.9 % (37.0-47.0); HEMOGLOBIN 9.4 g/dL (12.0-16.0); LYMPH# 2.06 X1000 (1.2-3.4); LYMPH% 36.9 % (20.5-51.1); MCH 28.1 PG (27-31); MCHC 32.5 g/dL (33-37); MCV 86.5 FL (81-99); MONO# 0.37 X1000 (0.11-0.59); MONO% 6.6 % (1.7-9.3); NEUT# 3.05 X1000 (1.4-6.5); NEUT% 54.7 % (42.2-75.2); PLT 232 X1000 (130-400); RBC 3.34 XMIL (4.2-5.4); RDW 12.6 % (11.5-14.5); WBC 5.58 X1000 (4.8-10.8)
[2018-10-27 06:59] LABS: ALBUMIN 3.2 g/dL (3.5-5.0); CALCIUM 8.3 mg/dL (8.8-10.2); CREATININE 2.9 mg/dL (0.5-0.9); POTASSIUM 4.9 mmol/L (3.5-5.1); TOTAL BILIRUBIN 0.36 mg/dL (0.20-1.00); TOTAL PROTEIN 6.4 g/dL (6.3-8.3)
[2018-10-27 07:55] VITALS: BP 166/73
[2018-10-27] MEDS: TENORMIN PO SCH (08:45)
[2018-10-27] MEDS: GLUCOPHAGE PO SCH (08:45)
[2018-10-27] MEDS: NAPROSYN PO SCH (08:45)
[2018-10-27] MEDS: PRILOSEC PO SCH (08:45)
[2018-10-27] MEDS ORDERED: NON-FORMULARY MED (Omeprazole [Omeprazole] 40 MG) PO SCH (09:00)
[2018-10-27] MEDS ORDERED: PRINIVIL PO SCH (09:00)
[2018-10-27] MEDS ORDERED: JANUVIA PO SCH (09:00)
[2018-10-27] MEDS ORDERED: CATAPRES PO SCH (09:00)
[2018-10-27] MEDS ORDERED: ZOFRAN ODT PO SCH (09:00)
[2018-10-27] MEDS ORDERED: PRAVACHOL PO SCH (09:00)
--- NOTE | 2018-10-27 13:02 | DISCHARGE SUMMARY ---
ADMISSION DATE: 10/26/2018 DISCHARGE DATE: 10/27/2018 PAST MEDICAL HISTORY: 1. Diabetes mellitus type 2. 2. Hypertension. 3. Hyperlipidemia. 4. Osteoarthritis. 5. Diabetic neuropathy. She has been told that she has congestive heart failure, but looking at her old echocardiogram, she has normal left ventricular function. She had run out of all of her medications for about 3 or 4 weeks and concerned about some swelling and shortness of breath. Chest x- ray and exam looked good. We put her back on her regular medications. She has not been taking metformin, and we gave her some metformin. It makes her have loose stools, so we will put her back on her Januvia. Doing well and felt she could go home. Review of her labs showed white count 5580, hematocrit 28, platelet count 232, 000. Chemistries unremarkable. Creatinine was 2.9, 2.6 when she came in. Looking back at her creatinine, note that it was 1.3 back in 09/2017. So I am going to hold her diuretic, and we will let her go home on Tenormin 50 mg twice a day, Catapres I believe 0.1 mg t.i.d., [place] 10 mg as needed for pain, insulin glargine 40 units nightly at bedtime, Prinivil 20 mg a day which I am going to hold, hold her hold her Naprosyn. She can take her Prilosec 20 mg twice a day and Pravachol 40 mg a day, Januvia 100 mg daily. Encouraged her to follow up with her primary care physician. Follow up on her renal function as well. cc: MD LOLA Landry
[2018-10-27] MEDS ORDERED: FLU VACCINE IM ONE (13:45)
--- NOTE | 2018-10-29 07:11 | EKG Report ---
Test Performed on : 10/27/2018 06:17:13 AM Test Reason : chest pain Blood Pressure : / mmHG Vent. Rate : 067 BPM Atrial Rate : 067 BPM P-R Int : 190 ms QRS Dur : 088 ms QT Int : 430 ms P-R-T Axes : 046 008 039 degrees QTc Int : 454 ms Normal sinus rhythm. Normal ECG When compared with ECG of 26-OCT-2018 12:35, (Unconfirmed) No significant change was found Confirmed by Jonah MCCLURE, Leonel Maxwell ([id number]) on 10/29/2018 11:11:48 AM
== END 2018-10-27 14:30 | disposition home or self-care (01) ==
LOC: ED 12:09 → 3N 21:44 → SUATTDRO 21:44 → INTOOBSV 21:44
PROVIDERS: ATTEND Emergency Medicine
CPT/HCPCS: 71020; 71046; 80053; 81001; 82550; 82948; 83735; 83880; 84443; 84484; 85025; 85610; 85730; 87088; 90686; 93005; 93010; 96374; 96375; 99285; A9270; J1815; J1940; XXXXX

== ENCOUNTER 2019-04-04 16:33 | Inpatient (IN) ==
[2019-04-04] MEDS ORDERED: NS 500 ML IV ONE (16:54)
[2019-04-04] MEDS ORDERED: TAZIDIME 2 GM in NS 100 ML IV ONE (16:54)
[2019-04-04] MEDS ORDERED: VANCOMYCIN 1 GM/NS 1 GM/250 ML IVPB IV ONE ×2 (16:54→23:00)
[2019-04-04 17:21] LABS: URINE SOURCE CATH
[2019-04-04 17:23] LABS: BILIRUBIN URINE NEGATIVE (NEGATIVE); BLOOD URINE NEGATIVE (NEGATIVE); COLOR YELLOW; GLUCOSE URINE 200 mg/dL (NEGATIVE); KETONE URINE NEGATIVE (NEGATIVE); LEUKOCYTES URINE NEGATIVE (NEGATIVE); NITRITE URINE NEGATIVE (NEGATIVE); PROTEIN URINE 300 mg/dL (NEGATIVE); TURBIDITY URINE CLEAR (CLEAR); UROBILINOGEN URINE NORMAL (NORMAL)
[2019-04-04 17:24] LABS: UR EPITHELIAL CELLS <10 /HPF (<10); URINE BACTERIA NEGATIVE /HPF; URINE RBC <10 /HPF (<10); URINE WBC <10 /HPF (<10)
[2019-04-04] MEDS ORDERED: ZOFRAN IV ONE (18:25)
[2019-04-04] MEDS ORDERED: MORPHINE IV ONE (18:25)
--- NOTE | 2019-04-04 18:34 | Diag Imaging Result Doc PS360 ---
EXAM: CHEST-1 VIEW 04/04/2019 HISTORY: abd pain TECHNIQUE: AP portable at 1827 COMMENT: The inspiration is less optimal than on 02/18/2019. There is an old rib fracture on the left. There is minimal atelectasis or pneumonia in the left lower lobe. IMPRESSION: Minimal left lower lobe atelectasis. Electronically signed by Trevon Norris 04/04/2019 6:32 PM
--- NOTE | 2019-04-04 18:40 | PROVIDER DOCUMENTATION ---
This chart was entered by Radha Bay Scribe, acting as scribe for Reinier Storm MD. HPI-Abdominal Pain/GI Problem - General Chief Complaint: Nausea/Vomiting Stated Complaint: VOMITING Time Seen by Provider: 04/04/19 16:51 Source: patient Allergies/Adverse Reactions: Patient Allergies Allergy/AdvReac Type Severity Reaction Status Date / Time Sulfa (Sulfonamide AdvReac NAUSEA/VOMI Verified 03/22/19 05:33 Antibiotics) TING Home Medications: Home Medication List Medication Instructions Recorded Confirmed Last Taken Type Atenolol 50 mg PO BID 30 Days #60 tab 10/27/18 03/20/19 03/22/19 04:15 Rx Glimepiride 1 tab PO DAILY 11/17/18 03/22/19 03/21/19 08:00 History ATORVAstatin [Lipitor] 40 mg PO QHS 02/14/19 03/22/19 03/21/19 20:00 History Insulin Novolog 70/30 [Novolog Mix 20 unit SUBQ QHS 02/14/19 03/22/19 03/21/19 20:00 History 70/30] Insulin Novolog 70/30 [Novolog Mix 30 unit SUBQ DAILY 02/14/19 03/22/19 03/21/19 08:00 History 70/30] Levothyroxine [Synthroid] 100 microgm PO DAILY 02/14/19 03/22/19 03/21/19 08:00 History Losartan [Cozaar] 100 mg PO DAILY 02/14/19 03/22/19 03/21/19 08:00 History Hydralazine [Apresoline] 50 mg PO Q8HR 30 Days #90 tab 02/18/19 03/20/19 03/22/19 04:15 Rx Calcifediol [Rayaldee] 30 mcg PO DAILY 03/20/19 03/22/19 03/21/19 20:00 History Ferrous Sulfate [Slow Fe] 142 mg PO DAILY 03/20/19 03/22/19 03/21/19 08:00 History Furosemide [Lasix] 120 mg PO BID 03/20/19 03/22/19 03/21/19 20:00 History Spironolactone 25 mg PO DAILY 03/20/19 03/22/19 03/21/19 20:00 History Hydrocodone/APAP 5 mg/325 mg 1 ea PO Q6H PRN PRN #5 tab 03/22/19 Unknown Rx [[place]-5] Promethazine [Phenergan] 25 mg PO Q6H PRN PRN #5 tab 03/22/19 Unknown Rx - History of Present Illness-ABD Nature of Presenting Problems: Patient is a 48 year old female who presents with generalized abdominal pain, nausea, vomiting and chills that started yesterday after having her first round of peritoneal dialysis. Patient states receiving 2 liters during dialysis yesterday then symptoms started. Reports having 1 liter today and symptoms started again. Denies fever. Abdominal Pain Onset Location: reports: generalized abdomen Pain Radiation: reports: no radiation Quality of Pain: reports: aching Severity in ED: reports: mild Onset/Duration: reports: 24 hours ago Timing: reports: still present Associated Symptoms: reports: fever/chills (chills), nausea, vomiting Bruising or Bleeding Gums?: No Similar Symptoms Previously?: Yes Recently seen or treated by another doctor?: Yes (t) Review of Systems - Adult - REVIEW OF SYSTEMS - ADULT Constitutional: reports: see HPI, chills. denies: fever, fatique Eyes: reports: no symptoms reported Ears, Nose, Mouth & Throat: reports: no symptoms reported Cardiovascular: reports: no symptoms reported Respiratory: reports: no symptoms reported Gastrointestinal: reports: see HPI, abdominal pain (generalized), nausea, vomiting. denies: diarrhea Genitourinary: reports: no symptoms reported Musculoskeletal: reports: no symptoms reported Integumentary: reports: no symptoms reported Neurological: reports: no symptoms reported Psychiatric: reports: no symptoms reported Endocrine: reports: no symptoms reported Hematologic/Lymphatic: reports: no symptoms reported Allergic/Immunologic: reports: no symptoms reported All Other Systems: Reviewed and Negative Past History - Adult - PAST MEDICAL HISTORY-ADULT Review of Records: reports: Old Records Reviewed, Nursing Assessment Review, Medications Reviewed, Social history reviewed & non-contributory. Major Childhood Illnesses: reports: denies history Cardiovascular: reports: CHF, HTN, hyperlipidemia Respiratory: reports: denies history Gastrointestinal: reports: GERD Obstetrical/Gynecological: reports: denies history Genitourinary: reports: kidney disease (lesion to L kidney) Musculoskeletal: reports: denies history, intervertebral disc disease, other (spinal stenosis) Neurological: reports: denies history Endocrine/Immune: reports: Diabetes, thyroid disorder, other (neuropathy) Other Conditions: reports: denies history, MRSA - PRIOR SURGERIES/PROCEDURES Surgical/Procedure History: reports: cholecystectomy, BTL, , orthopedic (extremity) (R great toe amputation), back/neck - IMMUNIZATION STATUS Childhood Immunizations: UTD, See Nurse Assessment Flu Vaccine: See Nurse Assessment - FAMILY HISTORY Family History: reviewed, not pertinent, HTN - SOCIAL HISTORY Smoking: denies Substance Use: denies Physical Exam-General - PHYSICAL EXAM-ADULT Initial Vital Signs Reviewed: Yes - CONSTITUTIONAL General Appearance: alert, no apparent distress, obese. negative: lethargic, slow to respond - HEAD, EARS, NOSE, MOUTH & THROAT HENMT: normocephalic/atraumatic, moist mucous membranes. negative: angioedema - RESPIRATORY Respiratory: chest non-tender, lungs clear, normal breath sounds. negative: crackles, stridor - CARDIOVASCULAR Cardiovascular: normal peripheral pulses, regular rate, rhythm. negative: ta chycardia, systolic murmur - GASTROINTESTINAL (ABDOMEN) Abdominal Exam: normal bowel sounds, soft, tenderness (generalized), other (dialysis cath present to [facility]). negative: guarding, rebound - MUSCULOSKELETAL Extremity: non-tender, normal inspection. negative: deformity, erythema - SKIN Integumentary: normal color, normal turgor, warm/dry. negative: cyanosis, ecchymosis, erythema, jaundice - NEUROLOGIC Neurologic: grossly normal. negative: aphasia, facial droop - PSYCHIATRIC Psych/Mental Status: normal mood/affect, oriented x 3. negative: anxious Progress - PLAN OF CARE/RESULTS Progress/Plan/Lab Results: Vital Signs - 8 hr 04/04/19 16:43 Temperature 98.1 F Pulse Rate 69 Respiratory Rate 20 Blood Pressure 135/77 O2 Sat by Pulse Oximetry 99 Orders Category Date Time Status Cardiac Monitoring DIRECTED Care 04/04/19 16:52 Active IV Insertion ORDERED Care 04/04/19 16:52 Active Notify Physician As Ordered Care 04/04/19 16:52 Active CHEST-1 VIEW [RAD] Stat Exams 04/04/19 16:52 Ordered BLOOD CULTURE [BLDCUL] Stat Lab 04/04/19 16:52 Uncollected BODY FLUID ANALYSIS [CELL CNT] Stat Lab 04/04/19 16:53 Ordered CBC WITH DIFF [HEME] Stat Lab 04/04/19 16:52 Uncollected CK PROFILE [SP CHEM] Stat Lab 04/04/19 16:52 Uncollected COMPREHENSIVE METABOLIC PANEL [CHEM] Stat Lab 04/04/19 16:52 Uncollected LACTATE, PLASMA [CHEM] Q3H Lab 04/04/19 17:00 Uncollected LACTATE, PLASMA [CHEM] Q3H Lab 04/04/19 20:00 Uncollected LACTATE, PLASMA [CHEM] Q3H Lab 04/04/19 23:00 Uncollected MAGNESIUM [CHEM] Stat Lab 04/04/19 16:52 Uncollected PROTIME WITH INR [COAG] Stat Lab 04/04/19 16:52 Uncollected PTT [COAG] Stat Lab 04/04/19 16:52 Uncollected ROUTINE CULTURE [RM] Stat Lab 04/04/19 16:52 Uncollected TROPONIN T Stat Lab 04/04/19 16:52 Uncollected phos [PHOSPHORUS] [CHEM] Stat Lab 04/04/19 16:53 Uncollected 0.9% Sodium Chloride Inj [Ns] 500 ml Med 04/04/19 16:54 Active IV 999 mls/hr CefTAZIDIME [Tazidime] 2 gm Med 04/04/19 16:54 Active 0.9% Sodium Chloride Inj [Ns] 100 ml IV NOW Vancomycin 1 gm/Ns Med 04/04/19 16:54 Active 1 gm in 250 ml IV NOW Oxygen Device Stat Oth 04/04/19 16:52 Active Result Diagrams: 04/04/19 18:00 - REASSESSMENT Reassessment #1 Time Reassessed: 18:38 Status: improving (Given IV morphine/zofran, po norco, IV Vanco/Fortaz per nephrology) - CONSULTS/PCP/HOSPITALIST Notification #1 *Consult/PCP/Hospitalist*: Dr. Britt Time Discussed: 17:45 Reason/Comments: Dr. Storm consulted with Dr. Britt's DIRECTOR OF CAPITAL GIVING about patient x 2 Consult Disposition: Admit #2 Consult: ilya Stinson Time Discussed: 18:39 Consult Disposition: Will see in ED (admit night shift supervisor) Departure - Departure Date of Disposition Decision: 04/04/19 Time of Disposition Decision: 18:39 DIAGNOSIS: Abdominal pain of unknown etiology, End stage renal disease on dialysis due to type 2 diabetes mellitus Peritonitis associated with peritoneal dialysis Qualifiers: Encounter type: initial encounter Qualified Code(s): T85.71XA - Infection and inflammatory reaction due to peritoneal dialysis catheter, initial encounter Disposition: ADMITTED INPATIENT 09 Certified Medical Emergency: Emergent Condition: Stable Referrals and Follow-Ups: Ashley Euceda MD [Primary Care Provider] - - Critical Care Note This patient required my direct & personal management of CC.: No Attestation - Physician/ JOSE ALBERTO Attestation Patient care was provided by Advanced Practice Provider:: No The physician spent face to face time with patient:: Yes Advanced Practice Provider documentation review:: Supervising physician onsite and consulted in the evaluation and care of this patient. The physician did have a face to face encounter with the patient. This chart was documented by the indicated scribe, (Radha Bay Scribe) and accurately reflects the services I performed and decisions made by me, Reinier Storm MD, as attested by the provider's signature.
[2019-04-04 18:42] LABS: BASO# 0.02 X1000 (0.0-0.2); BASO% 0.2 % (0.0-0.8); EOS# 0.04 X1000 (0.0-0.7); EOS% 0.4 % (0.0-10.0); HEMATOCRIT 25.1 % (37.0-47.0); HEMOGLOBIN 8.1 g/dL (12.0-16.0); IMM GRAN# 0.02 X1000 (0.0-0.04); IMM GRAN% 0.2 % (0.0-0.5); LYMPH% 7.5 % (20.5-51.1); MCH 26.6 PG (27-31); MCHC 32.3 g/dL (33-37); MCV 82.6 FL (81-99); MONO# 0.47 X1000 (0.11-0.59); MONO% 4.4 % (1.7-9.3); MPV 11.5 FL (7.4-10.4); NEUT# 9.25 X1000 (1.4-6.5); NEUT% 87.3 % (42.2-75.2); PLT 226 X1000 (130-400); RBC 3.04 XMIL (4.2-5.4); RDW 12.7 % (11.5-14.5)
[2019-04-04 18:46] LABS: INR 0.97; PROTIME 13.7 Seconds (11.0-16.0)
[2019-04-04 18:47] LABS: PTT 27.8 Seconds (22.3-41.8)
[2019-04-04 19:03] LABS: ALBUMIN 3.7 g/dL (3.5-5.0); CALCIUM 9.3 mg/dL (8.8-10.2); MAGNESIUM 1.8 mg/dL (1.5-2.7); TOTAL BILIRUBIN 0.88 mg/dL (0.20-1.00); TOTAL PROTEIN 7.5 g/dL (6.3-8.3)
--- NOTE | 2019-04-04 20:41 | Diag Imaging Result Doc PS360 ---
EXAM: CT ABDOMEN/PELVIS W/O CONTRAST 04/04/2019 HISTORY: evaluate dialysis catheter causing pain/peritnitis TECHNIQUE: This exam was performed using automated exposure control, adjustment of mA or kV according to patient size, and/or use of iterative reconstruction technique. COMMENT: There are patchy opacities in the lower lobes particularly the medial portion of the right lower lobe. This is worse than on the previous examination of 11/12/2018 although there patchy groundglass opacities which were present in the lingula and both lower lobes are somewhat diminished. There is some perinephric stranding which has not changed significantly since the previous study. There is no evidence of bowel obstruction. There is a fat-containing umbilical hernia. There is no evidence of appendicitis. There is a peritoneal dialysis catheter coiled in the anterior pelvis adjacent to the urinary bladder. There is a small amount of free air in the anterior left pelvis and midabdomen, which is probably physiologic given the presence of dialysis catheter. There is essentially no free fluid. The regional skeleton appears to be intact. IMPRESSION: Patchy pneumonia particularly in the right lower lobe. No evidence of acute intra-abdominal or pelvic disease. Electronically signed by Trevon Norris 04/04/2019 8:38 PM
[2019-04-04] MEDS ORDERED: TYLENOL PO PRN (23:23)
[2019-04-04] MEDS ORDERED: LIPITOR PO SCH (23:30)
[2019-04-04] MEDS ORDERED: VANCOMYCIN IV PER PHARMACY MISC SCH (23:45)
[2019-04-05] MEDS: LASIX PO SCH ×3 (00:22→21:18)
[2019-04-05] MEDS: APRESOLINE PO SCH ×4 (00:23→21:18)
[2019-04-05] MEDS: TENORMIN PO SCH ×3 (00:23→21:18)
[2019-04-05] MEDS: ZOFRAN IV PRN (00:32)
[2019-04-05] MEDS ORDERED: VANCOMYCIN 500 MG/NS 500 MG/100 ML IVPB IV ONE (02:00)
--- NOTE | 2019-04-05 02:16 | PROGRESS NOTE ---
DATE: 04/04/2019 SUBJECTIVE: A 48-year-old female new to peritoneal dialysis. She is an end- stage renal patient. She just got her catheter placed not too long ago. This is her day 2 dialysis. However, she developed abdominal pain, nausea, vomiting, chills after her 1st round of PD. They tried it once, and then again, and then the fluid was removed and was felt to be possibly contaminated. I do not have that data, but I do think it has been sent off for analysis. The Gram stain was negative. In any case, patient was admitted for possible peritonitis. OBJECTIVE: On exam, there is really not much going on. Her abdominal exam is fairly benign. Her catheter looks clean, dry, and intact. ASSESSMENT AND PLAN: We will start her on vancomycin, ceftazidime, renally dosed. Dr. Britt will consult and we will continue to follow. There is question she may have a little bit of right lower lobe pneumonia, so we will continue to monitor. Of note, her AST and ALT are profoundly elevated, so she may have some degree of hepatitis as well. Her CT imaging, though, did not really show any significant pathology in her liver. I am unsure if she has some sort of damage there, but we will check hepatitis screen and will consult gastroenterology. We will avoid anything hepatotoxic. Hold her statin, Tylenol, and follow closely. This is a [id number] encounter note with CHRISTIAN Fam. cc: Sulaiman Rizvi MD [facility]
[2019-04-05] MEDS: SYNTHROID PO SCH (05:59)
[2019-04-05] MEDS: HUMULIN R SUBQ SCH ×4 (05:59→21:18)
--- NOTE | 2019-04-05 06:28 | HISTORY AND PHYSICAL ---
ATTENDING PHYSICIAN: Dr. Sulaiman Rizvi. PRIMARY CARE PROVIDER: Dr. Euceda. LIBRARY MEDIA SPECIALIST: Dr. Bartlett and Dr. Britt. CHIEF COMPLAINT: Abdominal pain. HISTORY OF PRESENT ILLNESS: Ms. Gomez is a 48-year-old, female who has end-stage renal disease, requiring peritoneal dialysis. She just recently, on 03/22/2019, had a laparoscopic-assisted placement of her peritoneal dialysis catheter by Dr. Esposito. On 04/03 she did undergo her 1st peritoneal dialysis treatment. The patient states that during her 1st treatment that she did begin to have a lot of abdominal pain. Given this, the next day they did reduce her dialysis fluid amounts, though she still continued to have abdominal pain with initiation of treatment. Though unlike the 1st day, the 2nd day the fluid that they pulled off did have a cloudy appearance. The patient reports that given this they did take a sample of this when she had her peritoneal dialysis performed, and that they were concerned she could have possible peritonitis. She has also had associated symptoms with her abdominal pain of nausea, vomiting. The patient does have generalized tenderness. She actually described her abdominal pain as being as though someone had been punching her in the stomach and she was very sore. She has also reported that she has felt like she has had chills. She denies any headache, dizziness, chest pain, or shortness of breath. She denies any cough. She denies any dysuria. Upon evaluation in the ER, given the patient's abdominal pain as well as a recent placement of peritoneal dialysis catheter and she did have elevated liver function tests, they did perform a CT abdomen and pelvis without contrast, which did show patchy pneumonia, particularly in the right lower lobe. There was no evidence of intra-abdominal or pelvic disease. Chest x-ray did show minimal left lower lobe atelectasis as well. The patient did have blood cultures drawn. We have ordered a sputum culture as well. She has been placed on antibiotic coverage of vancomycin and Ceftazidime. She will be admitted for further treatment and evaluation. REVIEW OF SYSTEMS: A 14-point review of systems was conducted with the patient. All were negative, except pertinent positives mentioned above in HPI. PAST MEDICAL HISTORY: 1. Diabetes mellitus type 2. 2. Hypertension. 3. Hyperlipidemia. 4. Osteoarthritis. 5. Diabetic neuropathy. 6. History of end-stage renal disease dependent on peritoneal dialysis. The patient had just recently had a peritoneal dialysis catheter placed on 03/22/[address] Esposito. 7. Hypothyroidism. PAST SURGICAL HISTORY: 1. section. 2. Tubal ligation. 3. Cholecystectomy. 4. Right great toe amputation. SOCIAL HISTORY: The patient denies any past or present tobacco, alcohol, or illicit drug use. FAMILY HISTORY: Positive for her father passing away from a myocardial infarction at age 47. Her mother at age 43 of stomach cancer, adenocarcinoma. ALLERGIES: Patient has allergies to sulfa. HOME MEDICATIONS: 1. Atenolol 50 mg p.o. b.i.d. 2. Atorvastatin 40 mg p.o. at bedtime. 3. Lasix 120 mg p.o. b.i.d. 4. Hydralazine 50 mg p.o. q.8 hours. 5. NovoLog mix 70/30, 30 units subcu q.a.m. 6. NovoLog mix 70/30, 20 units subcutaneous at bedtime. 7. Synthroid 100 mcg p.o. daily. 8. Synthroid 100 mcg p.o. daily. 9. Losartan 100 mg p.o. daily. 10. Naloxone 25 mg p.o. daily. DIAGNOSTIC DATA: White blood cell count 10,600, hemoglobin 8.1, hematocrit 25.1, platelet count is 226,000. PT 13.7, INR 0.97, PTT is 27.8. Sodium 134, potassium 4, chloride 94, serum bicarb 20, BUN 88, creatinine 4 with a GFR 12. Glucose 163, calcium 9.3, phosphorus 6.1, total bilirubin 0.88, AST 1030, ALT 359, alkaline phosphatase 141. Troponin less than 0.01. Plasma lactate is 1.2 with a repeat of 1.4. Urinalysis was positive for protein, glucose, it was negative for blood, nitrites, leukocytes, white blood cells, or bacteria. CT of the abdomen and pelvis without contrast showed [*], particularly in the right lower lobe. There was no evidence of acute intra-abdominal or pelvic disease. Please see CT report for full details findings. PHYSICAL EXAMINATION: VITAL SIGNS: Temperature 98.7 degrees, heart rate 67, respirations 18, blood pressure 129/62, with a MAP of 78, oxygen saturation is 98% on room air. GENERAL: Ms. Gomez is a very pleasant, 48-year-old female. She was resting in the inpatient bed. She was in no acute distress. She was awake, alert, and able to answer questions appropriately. HEENT: Head is atraumatic, normocephalic. Pupils are equal, round, and reactive to light. CARDIOVASCULAR: Patient has S1, S2 present. No murmurs, gallops, rubs appreciated, with a regular rate and rhythm. PULMONARY: Patient has symmetrical chest expansion bilaterally. Lung sounds are clear to auscultation in bilateral full conner. ABDOMEN: Soft. Does not appear to be distended. Abdomen did have generalized tenderness noted upon palpation. Bowel sounds were present in all 4 quadrants, though were hypoactive. EXTREMITIES: No cyanosis, clubbing, or edema noted. Pulse, motor, and sensory was intact in all extremities. Radial pulses and pedal pulses were 2+ bilaterally. INTEGUMENTARY: The patient's skin is pink, warm, and dry. NEUROLOGICAL: Patient is alert and oriented to person, place, time, and situation. ASSESSMENT AND PLAN: 1. Possible peritonitis. We suspect that this is likely secondary to the patient's peritoneal dialysis. The patient reports that during her peritoneal dialysis treatment yesterday, on 04/04, that the nurse did obtain a sample of her peritoneal fluid. Given this, we will hold off on repeating these labs. We will leave this to the discretion of Dr. Britt. Though, if we do need to obtain fluid for testing we will have the dialysis nurse collect the sample. We have obtained blood cultures. She has been placed with antibiotic coverage of vancomycin and ceftazidime. As previously mentioned, her CT of the abdomen and pelvis did not show any acute intra-abdominal abnormalities. We will provide p.r.n. pain medicine for pain control. We will continue to follow. 2. End-stage renal disease, on peritoneal dialysis. We will place a consult with Dr. Britt and will await his evaluation and further recommendations for management. We have placed orders for a renal profile in the morning. 3. Possible pneumonia. The patient's CT of the abdomen and pelvis did note that there was patchy pneumonia, particularly in the right lower lobe. We will continue with antibiotic treatment, as mentioned above. Blood cultures have already been obtained. We will place a sputum culture. We will encourage the patient to turn, cough, deep breathe. I have ordered incentive spirometry. We will continue to follow. 4. Diabetes mellitus type 2. The patient has reported some nausea, vomiting associated with her abdominal pain, and has not had a good appetite or oral intake. Given this, we will place her on a sliding scale insulin per low-dose protocol. We will do pattern fingerstick blood sugars and continue to follow. We have placed an order for a hemoglobin A1c. She will be on a diabetic diet. We will start her off as bland, clear liquids, and advance as tolerated. 5. Hypertension. We will continue her regularly prescribed antihypertensive medications. 6. Transaminitis. For further evaluation of this, we have placed orders for hepatitis profile as well as a Gastroenterology consult with Dr. Acosta. We will await these results as well as his evaluation and further recommendations for management. We have held the patient's atorvastatin. Will continue to follow. 7. Hypothyroidism. We will continue the patient's Synthroid. We placed an order for TSH. 8. Deep vein thrombosis prophylaxis will be provided with sequential compression devices. The patient has been placed on medical floor with telemetry. She will have vital signs q.4 hours. We will repeat a CBC and CMP in the morning. Further orders and recommendations pending hospital course, diagnostic studies and physician evaluation. Dictated by CHRISTIAN Fam for Sulaiman Rizvi MD cc: Sulaiman Rizvi MD
[2019-04-05 07:41] LABS: HEMOGLOBIN A1C 8.3 % (4.8-6.0)
[2019-04-05 07:45] LABS: BASO# 0.02 X1000 (0.0-0.2); BASO% 0.7 % (0.0-0.8); EOS# 0.02 X1000 (0.0-0.7); EOS% 0.7 % (0.0-10.0); HEMATOCRIT 24.3 % (37.0-47.0); HEMOGLOBIN 7.7 g/dL (12.0-16.0); LYMPH# 0.86 X1000 (1.2-3.4); LYMPH% 28.7 % (20.5-51.1); MCH 26.7 PG (27-31); MCHC 31.7 g/dL (33-37); MCV 84.4 FL (81-99); MONO# 0.24 X1000 (0.11-0.59); MPV 11.2 FL (7.4-10.4); NEUT# 1.86 X1000 (1.4-6.5); NEUT% 61.9 % (42.2-75.2); PLT 196 X1000 (130-400); RBC 2.88 XMIL (4.2-5.4); RDW 12.8 % (11.5-14.5)
[2019-04-05 07:52] LABS: ALBUMIN 3.4 g/dL (3.5-5.0); CALCIUM 9.2 mg/dL (8.8-10.2); CREATININE 4.5 mg/dL (0.5-0.9); PHOSPHORUS 7.3 mg/dL (2.7-4.5); POTASSIUM 4.1 mmol/L (3.5-5.1)
[2019-04-05] MEDS ORDERED: TENORMIN PO SCH (09:00)
[2019-04-05] MEDS: ZOSYN 2.25 GM in NS 50 ML IV SCH ×2 (10:16→17:35)
[2019-04-05 10:25] LABS: ALBUMIN 3.4 g/dL (3.5-5.0); CALCIUM 9.3 mg/dL (8.8-10.2); CREATININE 4.4 mg/dL (0.5-0.9); POTASSIUM 4.1 mmol/L (3.5-5.1); TOTAL BILIRUBIN 1.14 mg/dL (0.20-1.00); TOTAL PROTEIN 6.9 g/dL (6.3-8.3)
[2019-04-05 10:46] LABS: HEMATOCRIT 23.9 % (37.0-47.0); HEMOGLOBIN 7.6 g/dL (12.0-16.0); MCH 26.8 PG (27-31); MCHC 31.8 g/dL (33-37); MCV 84.2 FL (81-99); MPV 11.3 FL (7.4-10.4); RBC 2.84 XMIL (4.2-5.4); RDW 12.8 % (11.5-14.5); WBC 3.16 X1000 (4.8-10.8)
[2019-04-05] MEDS: ALDACTONE PO SCH (10:57)
[2019-04-05] MEDS: COZAAR PO SCH (10:58)
[2019-04-05 11:23] LABS: BODY FLUID SOURCE PERI DIAL FLUID; WBC BF 24830 /cumm
[2019-04-05 11:58] LABS: MONOS 10 %; POLYS 90 %
--- NOTE | 2019-04-05 15:06 | PROGRESS NOTE ---
DATE: 04/05/2019 SUBJECTIVE: This morning Ms. Gomez refers to be doing a little better. Still has some abdominal pain. OBJECTIVE: Vital signs: Blood pressure is 104/50, pulse of 65, respiration is 18, temperature 98.6 degrees. Patient is saturating 100%. General: Ms. Brandon 48-year-old female. She is in bed, mild painful distress. HEENT: Mucosa is pink and moist. Anicteric. Acyanotic. Neck: Supple. Chest: Good air entry bilaterally. No crepitations or rhonchi. Cardiovascular: Regular rate and rhythm. Abdomen: Soft, is tender everywhere with guarding and rebound. There is a peritoneal catheter in place. Extremities: No pedal edema . [employer]NAGEMENT MARKETING: [employer] patient is awake, alert, and oriented. LABORATORY DATA: WBC is down to 3.16, hemoglobin is 7.6, platelet count of 194,000. Chemistry is also reviewed, it is consistent with renal failure. The patient AST and ALT, are ridiculously high. IMAGING STUDIES: Have all been reviewed. A CT scan of the abdomen and pelvis shows patchy pneumonia, particularly in the right lower lobe. No evidence of intra-abdominal or pelvic pathology. ASSESSMENT: 1. Peritoneal dialysis catheter related peritonitis. Patient is on vancomycin and ceftazidime. Nephrology is on board. 2. Endstage renal disease on peritoneal dialysis. Patient just started these earlier this month. I think at this point she is going to be needing access for dialysis and would have to be transitioned to hemodialysis for now. Surgery has been consulted and will follow up with further recommendations from nephrology. 3. Diabetes mellitus controlled. 4. Hypertension controlled. 5. Questionable right lower lobe pneumonia. The patient is on antibiotics anyway. 6. Acute hepatitis, etiology is unclear. Patient viral serologies have been sent. We will also do Tylenol levels and we will get ultrasound of the upper abdomen to rule out any vascular pathologies including possible Budd-Chiari. Patient's serologies for acute hepatitis have all been ordered by GI. cc: Mando Stinson MD [facility]ENTERLarissa
[2019-04-05] MEDS ORDERED: SENSORCAINE-MPF 0.5%/EPI 1:200,000 ONE (16:05)
[2019-04-05] MEDS ORDERED: DIPRIVAN 1% ONE (16:52)
--- NOTE | 2019-04-05 16:52 | CONSULTATION ---
DATE OF CONSULTATION: 04/05/2019 HISTORY OF PRESENT ILLNESS: Ms. Jacqueline Gomez is a 48-year-old white female patient of Dr. Britt who has end-stage renal disease and needs dialysis. Approximately 2 to 3 weeks ago. I placed a laparoscopic-assisted peritoneal dialysis catheter. She began using this catheter just recently, but with fills of fluid her abdomen had pain and most recently it was noted that the fluid was cloudy and had 1900 white blood cell count consistent with peritonitis. She was admitted for IV antibiotics and we were asked to evaluate her. PHYSICAL EXAMINATION: General: On exam, Ms. Gomez is in no acute distress. She is awake, cooperative. No jaundice. HEENT: No oral lesions. No cervical or supraclavicular lymphadenopathy. Heart: Her heart has regular rate. Lungs: Lungs were clear to auscultation and percussion bilaterally. Abdomen: Her abdomen was not distended. It was minimally tender to palpation. Her catheter sites looked well healed without evidence of infection. There is no cellulitis involving her anterior abdominal wall. Rectal / Vaginal: Rectal and vaginal exams were not performed. Extremities: She does have palpable femoral pulses. No significant peripheral edema. Neurologic: No focal deficits. IMPRESSION: End-stage renal disease requiring dialysis. Recently placed laparoscopic-assisted peritoneal dialysis catheter, now with pain during its use and evidence of peritonitis. She has been admitted for IV antibiotics. CT scan shows no intra-abdominal process such as abscess or infection. There was noted some small free air but that could be related to recent catheter use. PLAN: IV antibiotics. If clinically she improves, we will try to salvage this peritoneal dialysis catheter. If she does not improve I will have to remove the catheter and I frankly discussed this with her at the bedside today. I have also discussed with Dr. Britt. cc: Margarita Esposito MD
[2019-04-05] MEDS ORDERED: ROBINUL ONE (16:57)
[2019-04-05] MEDS ORDERED: QUELICIN (DOSE) ONE (16:57)
[2019-04-05] MEDS ORDERED: XYLOCAINE-MPF 2% ONE (16:57)
[2019-04-05] MEDS ORDERED: REGLAN ONE (17:04)
[2019-04-05] MEDS ORDERED: PEPCID ONE (17:11)
[2019-04-05] MEDS ORDERED: TAZIDIME 0.5 GM in NS 50 ML IV SCH (19:00)
--- NOTE | 2019-04-05 19:47 | GASTROENTEROLOGY CONSULTATION ---
DATE: 04/05/2019 REASON FOR CONSULTATION: Abdominal pain. HISTORY OF PRESENT ILLNESS: Ms Jacqueline Gomez is a 48-year-old woman with past medical history of hypertension, hyperlipidemia, insulin-dependent diabetes type 2, prior cholecystectomy, obesity, and end-stage renal disease who recently had a peritoneal catheter placement on 03/22/2019 and initiated peritoneal dialysis 2 days ago, who presents with 2 days of intractable nausea, vomiting, abdominal pain, chills, found to have peritonitis on admission. Per the medical record, the patient had normal LFTs in February. She also had normal LFTs as an outpatient recently per Dr. Britt. On admission here she was noted to have significant transaminitis with a normal bilirubin, a mildly elevated alkaline phosphatase and normal liver synthetic function. The patient reports that her abdominal pain is diffuse. She does not notice any particular right upper quadrant pain that is isolated. She denies any new medications, antibiotics other than what was received when she had a catheter placement which was cefazolin. No herbal or supplement use. No family history of liver disease. She says about a couple months ago, she had elevated liver enzymes that normalized and she said she was told that it was in the setting of infection. She did have a abdominal ultrasound in January that showed fatty liver but no evidence of choledocholithiasis. She denied any confusion, jaundice, rectal bleeding, melena, hematemesis. REVIEW OF SYSTEMS: As per HPI, otherwise 12 point review of systems is negative. PAST MEDICAL HISTORY: Again includes hypertension, hyperlipidemia, obesity, insulin-dependent diabetes type 2, CHF, end-stage renal disease on peritoneal dialysis, prior MRSA infection. PAST SURGICAL HISTORY: Includes toe amputation, cholecystectomy, peritoneal catheter dialysis, peritoneal catheter placement, tubal, eye surgery, . SOCIAL HISTORY: No smoking, alcohol or drug use. FAMILY HISTORY: No family history of liver diseases. HOME MEDICATIONS: Include atenolol, atorvastatin, Lasix, hydralazine, NovoLog 70/30, Synthroid, losartan, naloxone. ALLERGIES: To sulfa. LABS: White count of 3.1, hemoglobin is 7.6 from 8.1, platelets of 194,000. INR 0.97. Sodium 133, potassium 4.1, chloride of 96, bicarb 21, BUN of 89, creatinine 4.4, glucose of 216, total bilirubin of 1.14 from 0.88 yesterday, AST of 1920 from 1030, ALT of 1324 from 359, alkaline phosphatase of 203 from 141, creatine kinase of 78, troponin is negative, total protein of 6.9, albumin of 3.4, TSH of 0.12. UA shows proteinuria and glucosuria. Peritoneal fluid shows 24,830 white blood cells with 90% being neutrophils. Chest x-ray shows minimal left lower lobe atelectasis. CT of the abdomen and pelvis done yesterday shows patchy pneumonia, particularly in the right lower lobe. No evidence of acute intraabdominal or pelvic disease. ASSESSMENT AND PLAN: Ms. Jacqueline Gomez is a 48-year-old woman with past medical history significant for fatty liver, end-stage renal disease, who was recently initiated on peritoneal dialysis, who presents with peritonitis and found to have abnormal liver function tests in a hepatocellular pattern of injury. Checking abdominal ultrasound with Dopplers to rule out Budd- Chiari. The etiology is likely ischemic liver injury. Reviewing her vital signs, it does not appear that she has had any episodes of hypotension in the emergency room on admission. She may have been hypotensive during her peritoneal dialysis over the last couple of days, however there are no records of this. Other etiologies include acute viral hepatitis, autoimmune hepatitis, less likely choledocholithiasis. There are not any medications on her medication list other than hydralazine that could cause liver injury. Her hydralazine is not a new medication. She does not appear to be in liver failure. Her synthetic function including total bilirubin and INR are normal. Other notable labs include anemia without overt bleeding, hemoglobin is 7.6, leukopenia, hyponatremia, low bicarb, renal dysfunction. She is currently on antibiotics with Zosyn and vancomycin. For her abnormal LFTs, we will check acute hepatitis panel, autoimmune studies, ceruloplasmin. This pattern of liver function test elevation is not seen in alpha 1 antitrypsin, hemochromatosis, fatty liver or acute alcoholic hepatitis. We will continue to trend LFTs daily including INR. Recommend holding any hepatotoxic medications. For peritonitis defer management to primary team and Nephrology. For end-stage renal disease, nephrology is following. Fatty liver noted on ultrasound in January, insulin-dependent diabetes. The patient is on sliding scale insulin. Thank you for this consult. We will follow with you. Please call with any questions or concerns.
--- NOTE | 2019-04-05 20:19 | NEPHROLOGY CONSULTATION ---
DATE: 04/05/2019 REASON FOR ADMISSION: Abdominal pain, peritonitis. REASON FOR CONSULTATION: Abdominal pain, peritonitis. REQUESTING PHYSICIAN: Mando Stinson MD HISTORY OF PRESENT ILLNESS: This is a 48-year-old female who about 2 weeks ago had a peritoneal dialysis catheter placed with the plan to initiate dialysis. She began her training this week. She has been unable to tolerate fluids well. Her peritoneal fluid has become increasingly cloudy. The patient was having cramping, severe epigastric abdominal pain. We sent fluid over for cell count. Initially she had 1600 WBCs and greater than 90 polynuclear WBCs. She was given vancomycin and Fortaz, admitted to the hospital. She has had fluid dwelling this morning to do a repeat cell count today. The patient states that she is tolerating the fluid in the belly right now as long she does not try to get up. She also was noted, on her evaluation in the ER to have a right lower lobe atelectasis, patchy pneumonia. PAST MEDICAL HISTORY: Diabetes, hypertension, hyperlipidemia, osteoarthritis, diabetic neuropathy, endstage renal disease with initial start of peritoneal dialysis this week, hypothyroidism. PAST SURGICAL HISTORY: , tubal ligation, cholecystectomy, right great toe amputation, peritoneal dialysis catheter placed 2 weeks ago today. ALLERGIES: Sulfa. HOME MEDICATIONS: Atenolol, atorvastatin, Lasix, hydralazine, NovoLog, Synthroid, losartan, naloxone. SOCIAL HISTORY: No ETOH, tobacco or illicit drug use. FAMILY HISTORY: Myocardial infarction, stomach cancer, adenocarcinoma. REVIEW OF SYSTEMS: Abdominal pain. PHYSICAL EXAMINATION: Vital signs: Temperature 98.8 degrees, pulse 76, respiratory rate 16, blood pressure 130/59. Intake 350 mL, output 50 mL.General: This is a middle- aged female, resting in bed. She is awake and alert. She is in mild distress secondary to pain. HEENT: Normocephalic, atraumatic. THOR. Neck is supple. No JVD. Cardiovascular: Regular rate and rhythm. Pulmonary: She is clear bilaterally. Abdomen is soft, with significant tenderness just above the umbilical area. Her peritoneal dialysis catheter site is clean, dry and intact. There is no additional erythema. Her previous surgical insertion sites are also clean, dry and intact. : Voiding. Extremities: No clubbing or cyanosis. She has trace edema. Integumentary: Skin is warm and dry. Neurologic grossly nonfocal. LABORATORY DATA: WBC of 10.6, hemoglobin 8.1. Sodium 134, potassium 4.0, chloride 94, CO2 is 20, BUN 88, creatinine 4. Her AST is 1030, ALT is 359, alkaline phosphatase is 141. She has 3+ protein, 2+ glucose in urine. ASSESSMENT AND PLAN: 1. Peritonitis. I reviewed the events with the dialysis nurse as well as Dr. Esposito. Her CT does not really support a surgical complication and the catheter was placed under laparoscopic visualization. Obviously she has peritonitis but I am not sure why. We will broaden her coverage to include anaerobes. I believe early catheter removal is the most judicious course to minimize her risk of peritoneal complications such as scarring, abscess. I discussed this with her and she is agreeable. NPO. 2. Electrolytes, acid-base balance and anemia. These are all acceptable. She has some mild anemia. I will not give her erythropoietin secondary to the infection. We will also hold any transfusions unless she gets below 7 on her hemoglobin. Dictated by CHRISTIAN Wakefield for Osbaldo Britt MD Face to face encounter, data reviewed, discussed with Darron Mirza on 04/05/19. I agree with the above assessment and plan of care. cc: Osbadlo Britt MD [facility]
--- NOTE | 2019-04-05 22:00 | OPERATIVE NOTE ---
PROCEDURE DATE: 04/05/2019 PREOPERATIVE DIAGNOSIS: Peritonitis with intra-abdominal peritoneal dialysis catheter. POSTOPERATIVE DIAGNOSIS: Peritonitis with intra-abdominal peritoneal dialysis catheter. PRINCIPAL PROCEDURE: Removal of peritoneal dialysis catheter. SURGEON: Margarita Esposito MD. ANESTHESIA: General. ESTIMATED BLOOD LOSS: Less than 10 mL. DRAINS: None. INDICATIONS: Ms. Jacqueline Gomez is a 48-year-old, white female who has end-stage renal disease and requires dialysis. Several weeks ago, we placed a peritoneal catheter. She began using it, but had abdominal pain. She was admitted. It was found that she has white blood cell counts in cloudy fluid from her abdomen. She has been treated with antibiotics, but the white blood cell count is going up from the fluid taken from her peritoneal dialysis catheter, and we were asked by Nephrology to remove the catheter. PROCEDURE: The patient was brought to the operating room, placed supine, received general anesthesia, was ventilated. Her abdomen was prepped and draped in a sterile field. We mobilized the cuff in the subcutaneous tissue with blunt hemostat dissection. We were able to remove this cuff from the subcutaneous tissue, and the remainder of the catheter and its second cuff were able to be removed through this exit site from the peritoneum and the subcutaneous tissue all together. The entire catheter was removed, both from the abdomen and the subcutaneous tissue. We placed a dry dressing over the exit site of the catheter. Plans are for her to go to the recovery room and then return to the floor. She tolerated the procedure well. cc: Margarita Esposito MD
[2019-04-06] MEDS: APRESOLINE PO SCH ×3 (06:33→22:13)
[2019-04-06] MEDS: SYNTHROID PO SCH (06:33)
[2019-04-06] MEDS: HUMULIN R SUBQ SCH ×4 (06:34→22:15)
[2019-04-06 07:27] LABS: MCH 27.5 PG (27-31); MCHC 31.8 g/dL (33-37); MCV 86.3 FL (81-99); MPV 11.5 FL (7.4-10.4); RBC 2.55 XMIL (4.2-5.4); RDW 12.6 % (11.5-14.5); WBC 3.88 X1000 (4.8-10.8)
[2019-04-06 07:31] LABS: ALB/GLOB RATIO 0.9; ALBUMIN 3.1 g/dL (3.5-5.0); CREATININE 5.2 mg/dL (0.5-0.9); DIRECT BILIRUBIN 0.1 mg/dL (0.00-0.20); POTASSIUM 3.9 mmol/L (3.5-5.1); TOTAL BILIRUBIN 0.49 mg/dL (0.20-1.00); TOTAL PROTEIN 6.4 g/dL (6.3-8.3)
--- NOTE | 2019-04-06 09:59 | Diag Imaging Result Doc PS360 ---
EXAM: US ABDOMEN-COMPLETE 04/06/2019 HISTORY: acute hepatitis TECHNIQUE: Abdominal ultrasound COMMENT: The head and body of the pancreas are unremarkable. The remainder is not well seen. The visualized portions of the aorta and inferior vena cava are within normal limits. The hepatic veins appear to be patent. The study is generally suboptimal technically. There is very poor detail seen in the liver. There is antegrade flow in the portal vein. The gallbladder is surgically absent. The common bile duct measures over 12 mm. There is no definite evidence of intrahepatic biliary dilatation. The kidneys are without evidence of hydronephrosis or mass. The spleen is not enlarged. There is no evidence of free fluid. Compared to the previous study of 01/29/2019 the common bile duct has increased from 10 to 12 mm. IMPRESSION: No evidence of obstruction of the visualized portions of the inferior vena cava and hepatic veins. Increasing dilatation of the common bile duct. This may be physiologic following cholecystectomy. Electronically signed by Trevon Norris 04/06/2019 9:57 AM
[2019-04-06] MEDS: ZOSYN 2.25 GM in NS 50 ML IV SCH ×2 (10:27→16:43)
[2019-04-06] MEDS: ALDACTONE PO SCH (10:28)
[2019-04-06] MEDS: TENORMIN PO SCH ×2 (10:28→22:12)
[2019-04-06] MEDS: COZAAR PO SCH (10:29)
[2019-04-06] MEDS: LASIX PO SCH ×2 (10:29→22:12)
[2019-04-06] MEDS ORDERED: SODIUM CHLORIDE 0.9% INJ SCH (10:45)
[2019-04-06 12:16] LABS: HEPATITIS PROFILE ACUTE SEE COMMENTS
--- NOTE | 2019-04-06 13:24 | PROGRESS NOTE ---
DATE: 04/06/2019 SUBJECTIVE: This morning, Ms. Gomez refers to be feeling a whole lot better. Abdominal pain has resolved. Peritoneal dialysis catheter was removed yesterday by surgery. OBJECTIVE: Vital signs: Blood pressure is 119/58, pulse of 60, respirations 17, temperature is 98.6 degrees. General exam: Ms. Gomez is a 48-year-old female. She is in bed in no distress. HEENT: Mucosa is pink and moist. Anicteric. Acyanotic. Neck: Supple. Chest: Good air entry bilateral. There are no crepitations, no rhonchi. Cardiovascular: Regular rate and rhythm. Abdomen: Soft. It is nontender. There is an old infraumbilical surgical scar. There is a dressing over where the peritoneal catheter used to be on the left lower abdomen. No guarding, no rebound. CARAMEL MAKER: Patient is awake, alert, oriented. There is no focal neurological deficit. LABORATORY DATA: The patient's urine output was 1100. Laboratory data: WBC is 3.88, hemoglobin is 7.0, platelet count of 187. Chemistry is also reviewed. LFTs continue to improve. ASSESSMENT: 1. Peritoneal dialysis catheter-related peritonitis. Patient is on vancomycin, ceftazidime. Peritoneal dialysis catheter has been removed. 2. Endstage renal disease. The patient was started on peritoneal dialysis, but this has been withheld. For now, the patient seems to be making adequate urine. Her chemistry seems to be fairly stable, so we will continue to observe. Nephrology is on board. 3. Diabetes mellitus. 4. Hypertension, controlled. 5. Acute hepatocellular injury, presumably ischemic versus drug-induced liver injury. Liver enzymes continue to trend down. Serologies still pending. Ultrasound of the abdomen was negative for any clots. 6. History of diffuse and nodular diabetic glomerulosclerosis associated with hypertensive nephropathy on kidney biopsy noted. 7. Normocytic anemia, presumably related with renal failure. We will check iron studies as well and repeat the complete blood count. If hemoglobin goes below 7, we will transfuse the patient. cc: Mando Stinson MD
[2019-04-06] MEDS: PEPCID IV SCH ×2 (13:32→22:12)
--- NOTE | 2019-04-06 13:43 | NEPHROLOGY PROGRESS NOTE ---
DATE: 04/06/2019 SUBJECTIVE: Patient is sitting up in bed. She is n.p.o. for an ultrasound secondary to her liver function studies and GI consult yesterday. OBJECTIVE: Vital Signs: Temperature 97.8 degrees, pulse 62, respiratory rate 18, blood pressure 119/61. Intake 650 mL, output 1.1 L. General: Middle-aged female, sitting up in bed. Awake and alert. No acute distress. HEENT: Normocephalic, atraumatic. Oral mucosa moist. Dentition adequate. Neck: Supple without JVD. Cardiovascular: Regular rate and rhythm. There is no murmur. Pulmonary: She is clear bilaterally. She is on room air. Abdomen: Soft. She does have a surgical dressing noted to the right lower quadrant. She denies tenderness on palpation today. Genitourinary: Voiding. Extremities: No clubbing, cyanosis. Continues with trace lower extremity edema. Integumentary: Skin remains warm and dry. LABORATORY DATA: WBC of 3.6, hemoglobin 7. Sodium 131, potassium 3.9, CO2 21, creatinine 5.2 (4.0). Her AST is 475, ALT is 710. ASSESSMENT AND PLAN: 1. Chronic kidney disease 5D, peritoneal dialysis, with peritonitis. Her PD catheter was removed yesterday. The patient states that she feels significantly better. We will continue her on antibiotic coverage through the weekend and make a determination on Monday regarding future plan of care for her dialysis. The patient did have a rising creatinine from 4 to 5 today. If she continues with this trend over the weekend, will likely have to have a tunneled catheter placed early next week and start hemodialysis. If her renal function has some level of stability where we could obtain access to the arm which, is the preferable way to dialyze, we will attempt to do so. Again, we will make decisions based on daily labs through the weekend. 2. Electrolytes, acid-base balance, anemia. These are stable. Her hemoglobin remains at 7. We will, again, hold giving packed red blood cells at this time or Epogen secondary to her infection. The patient is amiddle-aged adult who may be eligible for transplant in the future and we would avoid transfusion if at all possible to reduce risk of additional antibody markers to her system. Dictated by CHRISTIAN Wakefield for Osbaldo Britt MD cc: [facility] Britt MD [facility]
[2019-04-06] MEDS ORDERED: HUMULIN 70/30 SUBQ SCH (18:00)
--- NOTE | 2019-04-06 19:33 | GASTROENTEROLOGY PROGRESS NOTE ---
DATE: 04/06/2019 SUBJECTIVE: The patient is resting in bed. She is feeling better. Her peritoneal dialysis catheter was removed. She denies any nausea or vomiting. Her abdominal pain has improved. OBJECTIVE: Temperature 97.3 degrees, pulse of 66, respiratory rate 16, blood pressure of 121/58, saturating 97% on room air. Body weight of 273 pounds 1 ounce. BMI of 39.2 kg. General Appearance: Morbidly obese. Lying in bed, in no acute distress. HEENT: Pale conjunctivae. No icterus. Neck is supple. Abdomen is obese, soft, nontender, nondistended. Extremities: No cyanosis or clubbing. Neurologic: Alert, awake, oriented. LABORATORY DATA: Hemoglobin and hematocrit are 7 and 22, white count of 3.8, platelet count of 187,000. Sodium 139, potassium 3.9, chloride 95, bicarbonate 21, anion gap 15, BUN of 89, creatinine of 5.2, glucose of 157, calcium is 8. Total bilirubin is 0.49, direct 0.1, AST 475, ALT 710, alkaline phosphatase 159, total protein is 6.4, albumin of 3.1. Peritoneal dialysis fluid showed evidence of white cells 24,830, polymorphonuclear neutrophils is 90% consistent with peritonitis. Her antismooth antibody is negative. Her hepatitis panel is nonreactive. Her blood culture x2 are negative after 48 hours. DIAGNOSTIC DATA: Abdominal ultrasound done on 04/06 showed no evidence of any obstruction of the visualized portion of the inferior vena cava and hepatic veins. Increasing dilation of the common bile duct. This may be physiologic, following cholecystectomy. CT of the abdomen and pelvis on 04/04/2019 showed patchy pneumonia particularly in the right lower lobe. No evidence of any acute intra-abdominal or pelvic disease. IMPRESSION AND PLAN: 1. Peritoneal dialysis catheter-related peritonitis. 2. Endstage renal disease secondary to uncontrolled diabetes. 3. Diabetes mellitus, uncontrolled. 4. Morbid obesity. 5. Hypertension. 6. Hepatocellular injury causing elevated liver enzymes, likely ischemic versus secondary to sepsis, peritonitis and possible drug-induced liver injury. 7. Anemia. RECOMMENDATIONS: Continue to follow liver enzymes. The liver enzymes are trending down. This is appears to be secondary to ischemic liver injury but sepsis secondary to peritonitis may have played a role as well. We will continue with treatment of peritonitis with IV antibiotics per the primary care team. Her ultrasound is negative for any evidence of hepatic vein or portal vein, or inferior vena cava occlusion. She does have morbid obesity and uncontrolled diabetes, which may have also contributed to chronic fatty liver disease. The patient is counseled to lose weight and keep a good control of her diabetes. The patient will follow up in the clinic in 4-6 weeks. At that time, we will recheck her liver enzymes to ensure normality. The patient will continue to be watched closely for hemoglobin and hematocrit, and transfuse as needed. We will keep her on Pepcid twice daily for GI prophylaxis. I will also start her on iron-C b.i.d. and multivitamin once daily for anemia. The above plan of care was discussed with the patient and all questions were answered. Please call us with any further questions. Thank you for allowing us to participate in the care of the patient. cc: MD Ashley Crane MD
[2019-04-06] MEDS: ICAR-C PO SCH (22:12)
[2019-04-07] MEDS: ZOSYN 2.25 GM in NS 50 ML IV SCH ×3 (00:49→17:14)
[2019-04-07] MEDS ORDERED: VANCOMYCIN 1,000 MG in NS 250 ML IV SCH (03:00)
[2019-04-07] MEDS: HUMULIN R SUBQ SCH ×4 (06:13→22:51)
[2019-04-07] MEDS: SYNTHROID PO SCH (06:13)
[2019-04-07] MEDS: APRESOLINE PO SCH ×3 (06:13→22:47)
[2019-04-07] MEDS ORDERED: ULTRAM PO ONE (06:32)
[2019-04-07 07:20] LABS: BASO# 0.04 X1000 (0.0-0.2); BASO% 0.7 % (0.0-0.8); EOS# 0.17 X1000 (0.0-0.7); EOS% 3.1 % (0.0-10.0); HEMATOCRIT 22.1 % (37.0-47.0); HEMOGLOBIN 7.1 g/dL (12.0-16.0); LYMPH# 1.48 X1000 (1.2-3.4); MCH 26.7 PG (27-31); MCHC 32.1 g/dL (33-37); MCV 83.1 FL (81-99); MONO# 0.52 X1000 (0.11-0.59); MONO% 9.5 % (1.7-9.3); MPV 11.5 FL (7.4-10.4); NEUT# 3.28 X1000 (1.4-6.5); NEUT% 59.7 % (42.2-75.2); PLT 207 X1000 (130-400); RBC 2.66 XMIL (4.2-5.4); RDW 12.6 % (11.5-14.5); WBC 5.49 X1000 (4.8-10.8)
[2019-04-07 07:34] LABS: POTASSIUM 4.3 mmol/L (3.5-5.1)
[2019-04-07 07:35] LABS: ALB/GLOB RATIO 0.9; ALBUMIN 3.1 g/dL (3.5-5.0); CALCIUM 8.4 mg/dL (8.8-10.2); CREATININE 5.5 mg/dL (0.5-0.9); TOTAL BILIRUBIN 0.27 mg/dL (0.20-1.00); TOTAL PROTEIN 6.7 g/dL (6.3-8.3)
[2019-04-07 07:39] LABS: CALCIUM 8.4 mg/dL (8.8-10.2); PHOSPHORUS 6.8 mg/dL (2.7-4.5)
[2019-04-07] MEDS: ICAR-C PO SCH ×2 (08:12→22:47)
[2019-04-07] MEDS: COZAAR PO SCH (08:12)
[2019-04-07] MEDS: ALDACTONE PO SCH (08:12)
[2019-04-07] MEDS: TENORMIN PO SCH ×2 (08:12→22:47)
[2019-04-07] MEDS: LASIX PO SCH (08:12)
[2019-04-07] MEDS: CENTRUM SILVER PO SCH (08:13)
--- NOTE | 2019-04-07 09:42 | NEPHROLOGY PROGRESS NOTE ---
DATE: 04/07/2019 SUBJECTIVE: Patient is sitting up in bed. She has a little bit of abdominal tenderness compared to yesterday but still feels well overall. She has been able to eat without difficulty. OBJECTIVE: Vital Signs: Temperature 97.5 degrees, pulse 64, respiratory rate 14, blood pressure 131/63. Intake 1.1 L. Output 1.3 L. General: This is a middle-aged female sitting up in bed. She is awake, alert, no acute distress. HEENT: Normocephalic, atraumatic. Oral mucosa moist. Neck: Supple. No JVD. Cardiovascular: Regular rate and rhythm without murmur or gallop. Pulmonary: She remains on room air and is clear bilaterally. She has no increased work of breathing. Abdomen: Soft. She does have some mild tenderness, more to the right lower quadrant from her previous surgery. She has positive bowel sounds. : She is voiding. Extremities: No clubbing, cyanosis. Extremely trace lower extremity edema. Integumentary: Skin is warm and dry. LABORATORY DATA: WBC of 5.4, hemoglobin 7.1. Sodium 131 potassium 4.3, CO2 24, BUN 93, creatinine 5.5. ASSESSMENT AND PLAN: 1. Chronic kidney disease 5D with peritonitis. PD catheter has been removed. Her creatinine has continued to climb over the course of the hospitalization. We will hold her furosemide over the next 24 to 48 hours and see if we can have her hydrate modestly and see if we can have some improvement in creatinine. If kidney function continues to worsen, we will likely have to have dialysis access for hemo placed. I discussed that with the patient in detail as far as how hemodialysis is completed and types of access. Patient is in agreement. We will make her NPO just in the morning in case she has had significant change and we need to step in emergently. 2. Electrolytes, acid-base balance anemia. Stable. Hemoglobin remains at 7.1. Again please do not transfuse blood products unless it has been okayed with Nephrology secondary to patient transplant status in the future. Dictated by CHRISTIAN Wakefield for Osbaldo Britt MD cc: Osbaldo Britt MD
[2019-04-07] MEDS: HUMULIN 70/30 SUBQ SCH (09:52)
[2019-04-07] MEDS ORDERED: VITAMIN D PO SCH (10:30)
--- NOTE | 2019-04-07 11:15 | PROGRESS NOTE ---
DATE: 04/07/2019 SUBJECTIVE: This morning Ms. Brandon refers to be feeling okay. Minimal pain in the in the abdomen, but otherwise, she feels well. OBJECTIVE: Vital signs: Blood pressure is 131/63, pulse of 63, respiration is 18, temperature 97.5 degrees. General: Ms. Brandon is a 48-year-old female. She is in bed. No distress. Mucosa is pink and moist. Anicteric. Acyanotic. Neck is supple. Chest: Good air entry bilateral. There were no crepitations no rhonchi. Cardiovascular: Regular rate and rhythm. No murmurs, no rubs, no gallops. Gastrointestinal: Abdomen is soft. Minimally tender in the lower abdomen. There is about a 0.5 cm infraumbilical surgical scar which is covered. When I look at it, it looks clean. Central Nervous System: Patient is awake, alert, oriented. There is no focal neurological deficit. LABORATORY DATA: WBC is up to 5.47, hemoglobin is 7.1, platelet count of 207,000. Chemistry is also reviewed, consistent with renal failure; the patient's phosphorus is 6.8 which is high, calcium is slightly low. LFTs are trending down. Vitamin D level is just 10. Folate is normal. PTH is high at 176. ASSESSMENT: 1. Peritoneal dialysis catheter-related peritonitis. The catheter has been removed. The tip of the catheter has shown Staphylococcus epidermidis (MRSA). The patient is currently on vancomycin and Zosyn. I think we can discontinue the Zosyn and continue with the vancomycin. 2. End-stage renal disease. Patient was just recently started on peritoneal dialysis; however, because of infectious complication, this has been withheld. Her creatinine continues to be climbing; however, acid-base and electrolytes are stable, and patient is making adequate urine. We are going to continue to follow up with further recommendations from Nephrology. 3. Diabetes mellitus. We will continue with the insulin regimen. 4. Hypertension, controlled. 5. Acute hepatocellular injury with negative viral studies. This is presumably due to either ischemic versus sepsis-induced or drug-induced liver injury. Liver enzymes continue to be trending down. 6. 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 Noted. 7. Normocytic anemia secondary to chronic renal failure. Hemoglobin is stable at 7.1. No need for transfusion at this point. I think Ms. Brandon at some point might need Epogen therapy once the infection is completely clean. 8. Bone and mineral disorders associated with chronic liver disease (secondary hyperparathyroidism, vitamin D deficiency, hyperphosphatemia). We will continue to address all these. cc: Mando Stinson MD
[2019-04-07] MEDS: PHOSLO PO SCH ×2 (12:46→17:02)
[2019-04-07] MEDS: PEPCID IV SCH ×2 (12:46→22:49)
--- NOTE | 2019-04-07 16:36 | GASTROENTEROLOGY PROGRESS NOTE ---
DATE: 04/07/2019 ATTENDING PHYSICIAN: Dr. Stinson. PRIMARY CARE PHYSICIAN: Dr. Ashley Euceda. SUBJECTIVE: Patient resting in bed. I spoke to the patient's family at bedside. The patient is feeling better. She denies any nausea or vomiting. She is eating better. She is moving her bowels. She reports decreasing abdominal pain. She denies any fevers, rigors, chills. OBJECTIVE: Vital signs: Temperature 97.3 degrees, pulse rate 62, respiratory rate of 12, blood pressure 142/74, saturating 100% on room air. Body weight of 273 pounds 1 ounces, BMI of 39.2 kg/m2. General: Obese, sitting in bed, in no acute distress. HEENT: Pale conjunctivae. No icterus. Neck: Supple. Abdomen: Obese, soft, nontender, nondistended. No guarding. Her abdominal pain/discomfort is improved. Extremities: No cyanosis, clubbing. Neurologic: Alert, awake, oriented x3. LABS: Hemoglobin and hematocrit is 7.1 and 22.1, white count of 5.49, platelet count of 207,000. Sodium 139, potassium 4.3, chloride 92, bicarb 24, anion gap 11, BUN of 93, creatinine 5.5, glucose of 280, calcium is 8.4, phosphorus 6.8. AST 141, ALT 446, alkaline phosphatase was 137, total protein 6.7, albumin of 3.1. Her iron level is 34.5, which is normal. Iron saturation is 25% which is normal, ferritin level of 145. Plasma lactate is 0.6. Antismooth muscle antibody is negative. Hepatitis panel is nonreactive. Blood culture x2 negative at 48 hours. IMPRESSION: 1. Peritoneal dialysis catheter related peritonitis. 2. End-stage renal disease secondary to diabetes and hypertension. 3. Diabetes mellitus. 4. Morbid obesity. 5. Hypertension. 6. Elevated liver enzymes, likely secondary to ischemic versus sepsis induced or drug-induced liver injury. 7. Fatty liver on the baseline, likely secondary to morbid obesity. 8. Anemia secondary to chronic renal failure. RECOMMENDATIONS: Will continue to follow the liver enzymes; they are trending down. We will maintain the MAP more than 60 mmHg. The patient is counseled to lose weight. The patient will continue on GI prophylaxis with Pepcid twice daily. The patient will continue to keep good control of diabetes. She will continue Iron C b.i.d. and multivitamin once daily for anemia. She is moving her bowels so we will use a bowel regimen as needed and patient will let us know if she gets constipated while being on iron. We will start her on Kassie-Colace twice daily. The above plan was discussed with the patient and family at bedside. All questions were answered. Please call us with any further questions. The patient will follow up in the clinic in 4 weeks from discharge to discuss the chronic liver disease workup and to follow up on liver enzymes. cc: MD Ahsley Crane MD Raphael K. Quansah, MD MTDD
[2019-04-07] MEDS: ZOFRAN IV PRN (17:10)
[2019-04-07] MEDS ORDERED: INSULIN PEN NEEDLES ONE (22:30)
[2019-04-07] MEDS: PERICOLACE PO SCH (22:47)
[2019-04-08] MEDS: ZOSYN 2.25 GM in NS 50 ML IV SCH ×3 (00:11→15:13)
[2019-04-08] MEDS ORDERED: ULTRAM PO ONE (00:35)
[2019-04-08] MEDS: APRESOLINE PO SCH ×2 (06:24→12:12)
[2019-04-08] MEDS: SYNTHROID PO SCH (06:24)
[2019-04-08] MEDS: HUMULIN 70/30 SUBQ SCH (06:25)
[2019-04-08] MEDS: HUMULIN R SUBQ SCH ×2 (06:26→11:33)
[2019-04-08 06:56] LABS: HEMATOCRIT 23.2 % (37.0-47.0); HEMOGLOBIN 7.4 g/dL (12.0-16.0); MCH 27.1 PG (27-31); MCHC 31.9 g/dL (33-37); MPV 11.4 FL (7.4-10.4); RBC 2.73 XMIL (4.2-5.4); RDW 12.8 % (11.5-14.5); WBC 4.89 X1000 (4.8-10.8)
[2019-04-08 07:24] LABS: POTASSIUM 4.1 mmol/L (3.5-5.1)
[2019-04-08 07:25] LABS: ALB/GLOB RATIO 0.9; ALBUMIN 3.4 g/dL (3.5-5.0); CALCIUM 9.1 mg/dL (8.8-10.2); CREATININE 5.5 mg/dL (0.5-0.9); TOTAL BILIRUBIN 0.3 mg/dL (0.20-1.00); TOTAL PROTEIN 7.3 g/dL (6.3-8.3)
[2019-04-08] MEDS ORDERED: ROCALTROL PO SCH (09:00)
[2019-04-08] MEDS ORDERED: SENSIPAR PO SCH (09:00)
[2019-04-08] MEDS: PERICOLACE PO SCH (09:17)
[2019-04-08] MEDS: TENORMIN PO SCH (09:17)
[2019-04-08] MEDS: CENTRUM SILVER PO SCH (09:17)
[2019-04-08] MEDS: ALDACTONE PO SCH (09:17)
[2019-04-08] MEDS: ICAR-C PO SCH (09:17)
[2019-04-08] MEDS: COZAAR PO SCH (09:17)
[2019-04-08] MEDS: PHOSLO PO SCH ×2 (09:17→12:12)
--- NOTE | 2019-04-08 10:11 | NEPHROLOGY PROGRESS NOTE ---
DATE: 04/08/2019 TIME SEEN: 0625. SUBJECTIVE: Ms. Gomez is sitting up in bed. States that she is feeling much better. She did have an episode of nausea and vomiting yesterday but after that one episode, she felt much better. OBJECTIVE: Her most recent vital signs, temperature 97.8 degrees, blood pressure 134/66, heart rate 63, respirations 20. She is on room air. Last recorded saturation 97%. She has had 290 in. She has had 1300 out yesterday documented. She has had 0 recorded this morning, though she states that she has been up to go to the bathroom. Laboratory Data: Sodium 134, potassium 4.1, chloride is 98, CO2 is 22, BUN 92, creatinine 5.5, glucose 221, her anion gap is 14, her calcium is 9.1, albumin 3.4. White count 9.89, hemoglobin 7.4, hematocrit 23.2, with a platelet count of 226,000. The patient has negative blood cultures after 48 hours. Her last random vancomycin level yesterday was 16.4. Physical Examination: General: This is a 48-year-old, white female resting quietly in bed. She appears chronically ill. She is in no acute distress. Her skin is warm and dry. HEENT: Normocephalic, atraumatic. Mucous membranes are moist. Neck: Supple. Trachea midline. No JVD. Cardiovascular: She is regular rate and rhythm. She is without murmur or gallop. Lungs: Clear to auscultation bilaterally. Equal excursion, on room air. Abdomen: Round, distended, nontender to palpation. Exit site wound from her PD catheter is dry and intact. Dressing over this area. Genitourinary: The patient has been voiding adequate amounts documented until this a.m. Extremities: Have trace edema. No clubbing or cyanosis. Integumentary: Skin is warm and dry. Neurological: Alert and oriented x3. ASSESSMENT AND PLAN: 1. Chronic kidney disease stage 5D with peritonitis. Patient has had her peritoneal dialysis catheter removed. She is feeling much better. White count is down to 9.89. Her BUN and creatinine have remained stable over the last 48 hours. We will continue to monitor and discuss with the patient possible options for dialysis if indicated. Otherwise, we will plan to follow up with labs on a weekly basis in our office. 2. Electrolytes and acid-base balance. Hemoglobin remains stable. We encourage no transfusion secondary to patient being a transplant candidate for the future. 3. Peritonitis. Patient currently remains on intravenous antibiotics. I discussed with Dr. Stinson. We initially ordered Levaquin and linezolid but she cannot afford it. We will just go with Cipro and observe. rg I would like to thank you for allowing us to follow with this patient. Dictated by CHRISTIAN Doyle for Osbaldo Birtt MD Face to face encounter, data reviewed, discussed with Jl Velazquez on 04/08/19. I agree with the above assessment and plan of care. mary cc: CHRISTIAN Doyle MD [facility]
[2019-04-08 11:30] VITALS: BP 115/57
[2019-04-08] MEDS: PEPCID IV SCH (11:32)
[2019-04-08] MEDS ORDERED: LEVAQUIN PO ONE (12:08)
--- NOTE | 2019-04-08 14:28 | GASTROENTEROLOGY PROGRESS NOTE ---
DATE: 04/08/2019 SUBJECTIVE: Patient resting in bed. She is feeling better. She denies any nausea or vomiting. She denies any abdominal pain. Her abdominal pain is improved. She denies any fevers, rigors, chills. She has moved her bowels. OBJECTIVE: Vital signs: Temperature 97.9 degrees, pulse of 61, respiratory 17, blood pressure 116/51, saturating 98% on room air. Body weight of 273 pounds 1 ounces. BMI of 39.2 kg/m2. general: Obese, lying in bed, in no acute distress. HEENT: Pale. No icterus. Neck: Supple. Abdomen: Obese, mild discomfort in the abdomen. No guarding, no rebound. Extremities: No cyanosis, clubbing. Neurologic: Alert, awake, oriented x3. LABORATORIES: Hemoglobin and hematocrit is 7.4 and 23.2, white count of 4.89, platelet count of 226,000, sodium 134, potassium 4.1, chloride 98, bicarb 22, anion gap 14, BUN of 92, creatinine 5.5, glucose of 21, calcium 9.1. Total bilirubin is 0.3, AST 60, ALT 315, alkaline phos 123, total protein 7.3, albumin 3.4. Ceruloplasmin level of 34.5, which is normal. Blood culture x2 negative at 48 hours on 04/04/2019. IMPRESSION: 1. Morbid obesity. 2. Peritonitis secondary to peritoneal dialysis catheter infection. 3. End-stage renal disease secondary diabetes and hypertension. 4. Diabetes mellitus. 5. Hypertension. 6. Elevated liver enzymes likely secondary to ischemia. Ischemic injury versus sepsis anasarca trending down. 7. Fatty liver on the baseline. 8. Anemia, which is stable. RECOMMENDATIONS: 1. I will continue current management plan. We will follow the patient in 4 weeks of discharge to evaluate the liver enzymes. She will continue iron and multivitamin for anemia. We will keep her on Pepcid twice daily for GI prophylaxis. She is on antibiotics for peritonitis. 2. She is on Kassie-Colace twice daily for bowel regimen. Hold for Diarrhea. We will sign off at this time. The patient needs to follow up in clinic in 4 weeks of discharge, need to review on chronic liver disease workup including STEFANIE levels. The above plan was discussed with the patient. All questions answered. Please call us with any further questions. cc: MD Ashlye Crane MD MTDD
--- NOTE | 2019-04-09 09:42 | DISCHARGE SUMMARY ---
ADMISSION DATE: 04/04/2019 DISCHARGE DATE: 04/08/2019 DISPOSITION: Home. FOLLOWUP: 1. Dr. Britt. 2. Dr. Euceda. 3. Dr. Acosta. 4. Dr. Esposito. CONSULTATIONS DURING THIS ADMISSION: Surgery was consulted. Patient was seen by Dr. Esposito. GI was consulted. Patient was seen by Dr. Acosta. Nephrology was consulted. Patient was seen by Dr. Britt. INVASIVE PROCEDURES DONE DURING THIS ADMISSION: Removal of peritoneal dialysis catheter was done by Dr. Esposito on 04/05/2019. IMAGING STUDIES OF SIGNIFICANCE: 1. A chest x-ray showed left lower lobe atelectasis. 2. A CT scan of the abdomen and pelvis without contrast showed patchy pneumonia, particularly in the left lower lobe. No evidence of intra-abdominal or pelvic disease. 3. Ultrasound of the abdomen did show no evidence of obstruction of the inferior vena cava and hepatic veins. There was increased dilation of the common bile duct. ADMISSION DIAGNOSES: 1. Possible peritonitis. 2. Endstage renal disease. 3. Questionable pneumonia. 4. Hypertension. DIAGNOSES AT THE TIME OF DISCHARGE: 1. Peritoneal dialysis catheter related peritonitis with culture negative. 2. Chronic kidney disease stage 5. 3. Diabetes mellitus. 4. Hypertension. 5. Acute hepatocellular injury with negative viral studies and negative serologies. This is presumed to be sepsis-induced versus ischemic liver injury versus drug-induced. Liver enzymes are trending down and the patient will follow up with Dr. Acosta. 6. Normocytic anemia secondary to chronic renal failure. 7. Bone and mineral disorders associated with chronic kidney disease (secondary hyperparathyroidism, vitamin D deficiency, hypophosphatemia were all addressed). 8. History of diabetic and hypertensive nephropathy on kidney biopsy noted. DISCHARGE MEDICATIONS: 1. Atenolol 50 mg b.i.d. 2. Insulin 70/30 with 20 units subcutaneously at bedtime. 3. Levothyroxine 100 mcg p.o. daily. 4. Insulin 70/30, 30 units subcutaneously q.a.m. 5. Losartan 100 mg daily. 6. Lipitor 40 mg at bedtime. 7. Hydralazine 50 mg q.8 hourly. 8. Spironolactone 25 mg p.o. daily. 9. Lasix 120 p.o. b.i.d. 10. Glimepiride 4 mg p.o. daily. 11. Kassie-Colace. 12. Sensipar 30 mg p.o. daily. 13. Vitamin D 50,000 units p.o. q.7 daily. 14. Zyvox 600 b.i.d. 15. Calcitriol 0.25 mcg p.o. daily. 16. Levofloxacin 250 p.o. q.48 hours. PRESENTING COMPLAINT: Abdominal pain. HISTORY OF PRESENTING COMPLAINT: Ms. Gomez is a 48-year-old, female who is known to have CKD stage 5 because of diabetic and hypertensive nephropathy, was recently started on peritoneal dialysis. However, a couple days after, she started having extremely excruciating abdominal pain associated with some chills. Studies were done outpatient-palomares by Dr. Bartlett which reveal peritonitis, so patient was admitted for management. HOSPITAL COURSE: The patient was admitted to the medical floor. Was started on broad-spectrum IV antibiotics. Surgery was consulted and the peritoneal dialysis catheter was removed. The patient's peritoneal fluid analysis was suggestive of peritonitis. However, the culture came back negative. All her other comorbidities were addressed during the hospital course. This morning, Ms. Gomez refers to feel a whole lot better. Abdominal pain is completely gone. She has not had any fever or chills during the hospital course. Her blood cultures have also come back negative. We think Ms. Gomez is clinically stable for discharge. During the hospital course, it was found that her liver enzymes were ridiculously high. GI was consulted. Multiple studies were done, most of which have come back negative. We presume that this is either as a result of the intra-abdominal infection or an ischemic injury to the liver, or possibly drug- induced. In any case, the liver enzymes seem to be trending down. The patient is advised to follow up with Dr. Acosta. This morning, Ms. Gomez's vitals, blood pressure is 115/57, pulse of 61, respirations are 16, temperature is 98.1 degrees, patient is saturating 99% on room air. Physical exam is unremarkable. Ms. Gomez is being discharged in stable condition. She is going to follow up with the physicians mentioned above. All the discharge instructions have been discussed with her and she voiced understanding. Time spent for discharge is 35 minutes. cc: Mando K. QuansaMD Ashley arora MD Michael Kelso, MD Lynn R. Buckner, MD Reginald D. Gladish, MD
== END 2019-04-08 15:50 | disposition home or self-care (01) | DRG 981 ==
LOC: ED 16:33 → 3N 20:49 → SUATTDRO 20:49 → 3N 21:18
PROVIDERS: ATTEND Internal Medicine
CPT/HCPCS: 71010; 71045; 74176; 76700; 80053; 80069; 80074; 80202; 80307; 80324; 80329; 81001; 82003; 82248; 82306; 82310; 82390; 82550; 82728; 82746; 82784; 82948; 83036; 83540; 83550; 83605; 83735; 83970; 84100; 84443; 84484; 85025; 85027; 85610; 85730; 86038; 86039; 86255; 87040; 87102; 88300; 89051; 94760; 94761; 94799; 96365; 96366; 96375; 99285; A9270; G0480; G6039; J0330; J0713; J2270; J2405; J2543; J2765; J3370; J7040; J7050; S0028; XXXXX

== ENCOUNTER 2019-05-02 14:06 | Inpatient (IN) ==
[2019-05-02] MEDS ORDERED: ZOFRAN IV PRN (14:24)
[2019-05-02] MEDS ORDERED: TYLENOL PO PRN (14:39)
--- NOTE | 2019-05-02 14:57 | EKG Report ---
Test Performed on : 05/02/2019 2:44:30 PM Test Reason : preop EKG Blood Pressure : / mmHG Vent. Rate : 067 BPM Atrial Rate : 067 BPM P-R Int : 196 ms QRS Dur : 098 ms QT Int : 436 ms P-R-T Axes : 051 005 032 degrees QTc Int : 460 ms Normal sinus rhythm. Cannot rule out Anterior infarct (cited on or before 20-MAR-2019) Abnormal ECG When compared with ECG of 20-MAR-2019 11:22, No significant change was found Confirmed by Glenn Davey MD ([id number]) on 05/04/2019 9:02:26 PM
[2019-05-02 15:13] LABS: HEMATOCRIT 25.9 % (37.0-47.0); HEMOGLOBIN 8.5 g/dL (12.0-16.0); MCH 27.6 PG (27-31); MCHC 32.8 g/dL (33-37); MCV 84.1 FL (81-99); MPV 10.5 FL (7.4-10.4); RBC 3.08 XMIL (4.2-5.4); RDW 12.8 % (11.5-14.5); WBC 5.54 X1000 (4.8-10.8)
[2019-05-02 15:17] LABS: INR 0.94; PROTIME 13.3 Seconds (11.0-16.0)
--- NOTE | 2019-05-02 15:42 | Diag Imaging Result Doc PS360 ---
EXAM: CHEST-PORTABLE INDICATION: dyspnea TECHNIQUE: One view COMPARISON: 04/04/2019 FINDINGS: Inspiration is somewhat suboptimal. The lungs are grossly clear. There is no discrete pleural fluid collection or pneumothorax. The cardiomediastinal silhouette and central vasculature are grossly unremarkable accounting for magnification from AP technique. IMPRESSION: No evidence of acute pathology by plain radiograph. Electronically signed by Yoshi Rizzo 05/02/2019 3:39 PM
[2019-05-02 15:46] LABS: DIRECT BILIRUBIN 0.1 mg/dL (0.00-0.20); TOTAL BILIRUBIN 0.66 mg/dL (0.20-1.00)
[2019-05-02 15:47] LABS: ALB/GLOB RATIO 1.1; ALBUMIN 4.1 g/dL (3.5-5.0)
[2019-05-02 16:00] LABS: ALBUMIN 4.1 g/dL (3.5-5.0); CALCIUM 9.5 mg/dL (8.8-10.2); CREATININE 4.6 mg/dL (0.5-0.9); PHOSPHORUS 7.8 mg/dL (2.7-4.5); POTASSIUM 5.3 mmol/L (3.5-5.1)
[2019-05-02 16:43] LABS: HEMOGLOBIN A1C 8.6 % (4.8-6.0)
[2019-05-02] MEDS: HUMULIN R SUBQ SCH ×2 (17:25→21:21)
--- NOTE | 2019-05-02 18:35 | GENERAL SURGERY CONSULTATION ---
DATE: 05/02/2019 REQUESTING PHYSICIAN: Hospitalist. REASON FOR CONSULTATION: Placement of hemodialysis catheter. HISTORY OF PRESENT ILLNESS: A 48-year-old female with end-stage renal disease who previously been on peritoneal dialysis, but had to have the catheter removed secondary to infection, presenting now with worsening kidney function and need for hemodialysis. She otherwise has been doing okay. She has healed up from her PD catheter removal and does not have any abdominal pain. She has been admitted for placement of a catheter and hemodialysis. PAST MEDICAL HISTORY: 1. Diabetes mellitus type 2. 2. Hypertension. 3. Hyperlipidemia. 4. Osteoarthritis. 5. Diabetic neuropathy. 6. End-stage renal disease, requiring dialysis. 7. Hypothyroidism. PAST SURGICAL HISTORY: Includes: 1. . 2. Tubal ligation. 3. Cholecystectomy. 4. Right toe amputation. 5. PD catheter placement and removal. SOCIAL HISTORY: Denies alcohol, tobacco, or illicit drugs. FAMILY HISTORY: Positive for NH. ALLERGIES: Sulfa. HOME MEDICATIONS: Reviewed. REVIEW OF SYSTEMS: A full 10 point review of systems was obtained and negative except as specified in HPI. PHYSICAL EXAMINATION: Vital Signs: Patient is currently afebrile. Her vital signs are stable. General: No acute distress, alert and interactive female who looks stated age. HEENT: Normocephalic, atraumatic. Pupils equal, round, and reactive to light. Mucous membranes moist. Oropharynx benign. Neck: Supple. Trachea midline. Cardiovascular: Regular rate and rhythm. Lungs: Grossly clear. Abdomen: Soft, nontender, nondistended. Extremities: Moves all extremities. Neurologic: Grossly intact. Skin: No signs of jaundice. Vascular: All extremities perfused. LABORATORY: Reviewed. INR is normal. Remainder of labs reviewed. ASSESSMENT AND PLAN: A 48-year-old female with end-stage renal disease, requiring tunneled hemodialysis catheter for hemodialysis. 1. Access for hemodialysis. At this time, we will plan on placement of tunneled catheter tomorrow. The risks, benefits, and alternatives were discussed. Risks including, but not limited to, bleeding, infection, risk of anesthesia, risk of pneumothorax were discussed. We will try to place on the right side tomorrow. She will ultimately require some degree of more permanent hemodialysis access, like an AV fistula, but we will place this so she can get immediate dialysis and make further recommendations in the future. Further discussions to be had about placement in the postoperative period. 2. Multiple medical comorbidities, to be managed by the hospitalist. cc: Silver Esparza MD
[2019-05-02 20:37] LABS: URINE SOURCE CLEAN CATCH
[2019-05-02 20:43] LABS: BILIRUBIN URINE NEGATIVE (NEGATIVE); BLOOD URINE NEGATIVE (NEGATIVE); COLOR STRAW; GLUCOSE URINE 1000 mg/dL (NEGATIVE); KETONE URINE NEGATIVE (NEGATIVE); LEUKOCYTES URINE NEGATIVE (NEGATIVE); NITRITE URINE NEGATIVE (NEGATIVE); PH URINE 5.5; PROTEIN URINE 100 mg/dL (NEGATIVE); SP GRAVITY URINE 1.008; TURBIDITY URINE CLEAR (CLEAR); UROBILINOGEN URINE NORMAL (NORMAL)
[2019-05-02 20:44] LABS: UR EPITHELIAL CELLS <10 /HPF (<10); URINE BACTERIA NEGATIVE /HPF; URINE RBC <10 /HPF (<10); URINE WBC <10 /HPF (<10)
--- NOTE | 2019-05-02 20:45 | HISTORY AND PHYSICAL ---
PRIMARY CARE PHYSICIAN: Dr. Ashley Euceda. BOLT MAN: Dr. Bartlett. HISTORY OF PRESENT ILLNESS: Ms. Gomez is a 48-year-old female with ESRD, hypertension secondary hyperparathyroidism, diabetes mellitus type 2, and a history of recently treated peritonitis secondary to Staphylococcus epidermidis, who was sent to the hospital as a direct admission for hemodialysis catheter placement and initiation of hemodialysis. The patient has ESRD secondary to diffuse and nodular diabetic glomerulosclerosis. Management of the patient's volume status started to worsen, and so the patient decided that she wanted to be started on peritoneal dialysis. The patient had a peritoneal dialysis catheter placed on 03/22/2019. The patient then underwent her first peritoneal dialysis treatment on 04/03/2019. During the treatment, the patient had a lot of abdominal pain. The following day, during the patient's second treatment, the patient's peritoneal fluid was noted to be cloudy, and the patient continued to complain of worsening abdominal pain and fever. The patient then presented to [facility] on 04/04/2019, with suspicion of peritonitis. The patient was admitted and ultimately the peritoneal fluid grew out Staphylococcus epidermidis. The patient's peritoneal dialysis catheter was removed on 04/05/2019, and the patient was treated with Levaquin and Zyvox during the hospitalization. The patient was then managed with diuretic therapy and her renal function and acid-base status remained stable. She was then discharged on Cipro with instructions to follow up closely with Dr. Bartlett. The patient now presents today to undergo hemodialysis catheter placement and subsequent initiation of hemodialysis. The patient reports that she was seen yesterday at Dr. Bartlett's office and was told that her laboratory studies were worsening, and that she needed to be started on hemodialysis this week. The patient reports that she has a very poor appetite and low energy. She also reports that her urine output is less than it has been over the last several weeks. She denies having any chest pain, shortness of breath, headaches, dizziness, nausea, vomiting or recent syncopal episodes. PAST MEDICAL HISTORY: 1. End stage renal disease. 2. Diabetes mellitus type 2. 3. Hypertension. 4. Hyperlipidemia. 5. Diabetic neuropathy. 6. Secondary hyperparathyroidism. 7. Osteoarthritis. 8. Hypothyroidism. 9. Obesity PAST SURGICAL HISTORY: 1. . 2. Tubal ligation. 3. Cholecystectomy. 4. Right great toe amputation. 5. Peritoneal dialysis catheter insertion on 03/22/19 6. Peritoneal dialysis catheter removal on 04/05/19. FAMILY HISTORY: The patient's father from complications related to an MN at the age of 47. The patient's mother at the age of 43 secondary to adenocarcinoma of the stomach. SOCIAL HISTORY: The patient denies any tobacco, alcohol, or illicit drug use. ALLERGIES: Sulfa drugs. HOME MEDICATIONS: 1. Atenolol 50 mg p.o. twice a day. 2. Lipitor 40 mg p.o. at bedtime. 3. Calcitriol 0.25 mcg oral daily. 4. PhosLo 667 mg oral 3 times a day. 5. Ferrous sulfate 142 mg p.o. daily. 6. Lasix 120 mg oral twice a day. 7. Amaryl 4 mg p.o. daily. 8. Apresoline 50 mg p.o. every 8 hours. 9. Humulin 70/30 at 30 units subcutaneous every morning. 10. Humulin 70/30 at 20 units subcutaneous at bedtime. 11. Synthroid 100 mcg oral daily. 12. Cozaar 100 mg oral daily. 13. Aldactone 25 mg oral daily. REVIEW OF SYSTEMS: A 12 point review of systems has been performed. Please refer to the History of Present Illness for pertinent positives and negatives. PHYSICAL EXAMINATION: VITAL SIGNS: Temperature 97.9 degrees, blood pressure 126/66, heart rate 65, respirations 20, O2 saturation 100% on room air. GENERAL: This is a morbidly obese female lying in bed in no acute distress. SKIN: No rashes, no lesions. Normal capillary refill. HEAD: Normocephalic, atraumatic. EYES: Conjunctivae clear. EOMI. PERRLA. NECK: Supple. No JVD. No lymphadenopathy. No carotid bruits. HEART: S1, S2 normal. Regular rate and rhythm. No murmurs, rubs, or gallops. LUNGS: Clear to auscultation bilaterally. No wheezing. No rales. No rhonchi. ABDOMEN: Positive bowel sounds. Soft, obese, nontender, and nondistended. EXTREMITIES: No edema, no cyanosis, no calf tenderness. Peripheral pulses palpable. NEUROLOGIC: The patient is alert and oriented x4. No focal neurologic deficits noted. Cranial nerves 2 through 12 intact. LABS: White blood cell count 5.5, hemoglobin 8.5, hematocrit 25, platelets 204,000. Sodium 134, potassium 5.3, chloride 95, CO2 22, BUN 108, creatinine 4.6, glucose 351. A1c 8.6, phosphorus 7.8. AST 23, ALT 32, alkaline phosphatase 73, albumin 4.1. Chest x-ray shows no acute pathology. EKG shows normal sinus rhythm with a rate of 67 beats per minute. ASSESSMENT AND PLAN: 1. End stage renal disease. The patient will have a hemodialysis catheter placed tomorrow by the general surgeon. Dr. Britt will then initiate hemodialysis. 2. Mild hyperkalemia. Monitor closely. 3. Hypertension. Will restart the patient's outpatient antihypertensive regimen. 4. Insulin dependent diabetes mellitus type 2. We will start the patient on Humulin 70/30 and cover her with sliding scale insulin. 5. Hypothyroidism. Continue on Synthroid. 6. Anemia. Will check iron studies. 7. Secondary hyperparathyroidism. Continue on PhosLo. 8. Morbid obesity. Aware. 9. DVT prophylaxis. Will start heparin after the dialysis catheter has been placed. cc: Martita Ansari MD MTDD
[2019-05-02] MEDS: LIPITOR PO SCH (21:21)
[2019-05-02] MEDS: APRESOLINE PO SCH (21:21)
[2019-05-02] MEDS: TENORMIN PO SCH (22:39)
[2019-05-02] MEDS: HUMULIN 70/30 SUBQ SCH (22:39)
[2019-05-02] MEDS: ULTRAM PO PRN (22:43)
[2019-05-03] MEDS ORDERED: D50W SYRINGE IV ONE (05:27)
[2019-05-03] MEDS: APRESOLINE PO SCH ×3 (06:04→22:12)
[2019-05-03] MEDS: SYNTHROID PO SCH (06:04)
[2019-05-03] MEDS: HUMULIN R SUBQ SCH ×4 (06:06→22:12)
[2019-05-03] MEDS ORDERED: HEPARIN IV PRN (06:25)
[2019-05-03] MEDS ORDERED: NS 2,000 ML MISC PRN (06:25)
[2019-05-03] MEDS ORDERED: TIGHT: 0.2 ML/HR FOR DIALYSIS MISC PRN (06:25)
--- NOTE | 2019-05-03 07:06 | GENERAL SURGERY PROGRESS NOTE ---
DATE: 05/03/2019 SUBJECTIVE: Patient seems to be doing okay. No major issues. OBJECTIVE: Vital Signs: Patient is currently afebrile. Her vital signs stable. General: No acute distress HEENT: Normocephalic, atraumatic. Pupils equal, round, reactive to light. Mucous membranes moist. Oropharynx benign. Neck: Supple. Trachea midline. Cardiovascular: Regular rate and rhythm. Lungs: Clear. Abdomen: Soft, nontender, nondistended. Extremities: Moves all extremities. Neurologic: Grossly intact. Skin: No signs of jaundice. Vascular: All extremities perfused. LABORATORY: None this morning as of yet. ASSESSMENT AND PLAN: A 48-year-old female with end-stage renal disease, needing access for HD. Need for access for HD. At this time, we will plan on placement of tunneled catheter. We discussed with her, the risks, benefits and alternatives yesterday. We will have her scheduled for today. cc: Silver Esparza MD
[2019-05-03] MEDS: PHOSLO PO SCH ×4 (08:09→17:17)
[2019-05-03] MEDS: ZOFRAN IV PRN (08:18)
[2019-05-03] MEDS: AMARYL PO SCH (08:21)
[2019-05-03] MEDS: HUMULIN 70/30 SUBQ SCH ×2 (08:22→22:13)
[2019-05-03] MEDS: COZAAR PO SCH (08:22)
[2019-05-03] MEDS: ROCALTROL PO SCH (08:23)
[2019-05-03] MEDS: TENORMIN PO SCH ×2 (08:23→22:12)
[2019-05-03 08:32] LABS: BASO# 0.02 X1000 (0.0-0.2); BASO% 0.4 % (0.0-0.8); EOS# 0.09 X1000 (0.0-0.7); EOS% 1.6 % (0.0-10.0); HEMATOCRIT 25.6 % (37.0-47.0); HEMOGLOBIN 8.4 g/dL (12.0-16.0); LYMPH# 1.61 X1000 (1.2-3.4); LYMPH% 29.2 % (20.5-51.1); MCH 27.3 PG (27-31); MCHC 32.8 g/dL (33-37); MCV 83.1 FL (81-99); MONO# 0.38 X1000 (0.11-0.59); MONO% 6.9 % (1.7-9.3); NEUT# 3.42 X1000 (1.4-6.5); NEUT% 61.9 % (42.2-75.2); PLT 201 X1000 (130-400); RBC 3.08 XMIL (4.2-5.4); RDW 12.4 % (11.5-14.5); WBC 5.52 X1000 (4.8-10.8)
[2019-05-03 09:00] LABS: CALCIUM 9.3 mg/dL (8.8-10.2); CREATININE 4.6 mg/dL (0.5-0.9); PHOSPHORUS 8.5 mg/dL (2.7-4.5); POTASSIUM 5.3 mmol/L (3.5-5.1)
[2019-05-03] MEDS ORDERED: KEFZOL 1 GM/D5W 1 GM/50 ML IVPB IV ONE (10:00)
[2019-05-03] MEDS ORDERED: KEFZOL 1 GM/D5W 1 GM/50 ML IVPB ONE (10:14)
[2019-05-03] MEDS ORDERED: EPOGEN SUBQ ONE (10:18)
[2019-05-03] MEDS ORDERED: NS 250 ML ONE (10:27)
[2019-05-03] MEDS ORDERED: XYLOCAINE 1% ONE (10:27)
[2019-05-03] MEDS ORDERED: MARCAINE 0.25% PF/EPI 1:200,000 ONE (10:27)
--- NOTE | 2019-05-03 12:26 | Diag Imaging Result Doc PS360 ---
EXAM: CHEST-PORTABLE 05/03/2019 HISTORY: catheter placement TECHNIQUE: AP portable upright at 1217 COMMENT: There is a double-lumen catheter in the right internal jugular with its tip just above the right atrium. There is no evidence of pneumothorax or pleural fluid collection. Otherwise the appearance of the chest has not changed significantly since the previous study of 05/02/2019. IMPRESSION: No acute disease. Electronically signed by Trevon Norris 05/03/2019 12:24 PM
--- NOTE | 2019-05-03 13:39 | NEPHROLOGY PROGRESS NOTE ---
DATE: 05/03/2019 REASON FOR CONSULTATION: Assistance with management, end-stage renal disease. HISTORY OF PRESENT ILLNESS: Ms. Jacqueline Gomez is a 48-year-old white female, patient of Dr. Bartlett, who has stage 5 chronic kidney disease with anorexia, weakness and other uremic symptoms. She is admitted to the hospital to initiate dialysis. Her ESRD is based on diabetes. She also has hypertension, hyperlipidemia, osteoarthritis, obesity, etc. PAST MEDICAL HISTORY: As above. HOME MEDICATIONS: Include 1. Atenolol. 2. Insulin. 3. Levothyroxine. 4. Losartan. 5. Atorvastatin. 6. Hydralazine. 7. Spironolactone. 8. Furosemide. 9. Glimepiride. 10. Colace. 11. Calcium acetate. 12. Cinacalcet. 13. Calcitriol. 14. Furosemide. ALLERGIES: Sulfa. SOCIAL: Recently . No alcohol or tobacco. FAMILY HISTORY: Otherwise noncontributory. REVIEW OF SYSTEMS: Otherwise noncontributory. PHYSICAL EXAMINATION: Vital Signs: Blood pressure 137/68, heart rate 62, respiration 18, afebrile. General: No acute distress. Skin: Warm and dry. Conjunctivae are pink. Neck: Neck veins are not distended. Heart: Regular. No rubs or gallops. Lungs: Equal. No crackles or wheezes. Abdomen: Soft, nontender. Bowel sounds present. Extremities: Minimal edema. No clubbing or cyanosis. IMPRESSION: Chronic kidney disease stage 5. She will have a tunneled catheter placed today, and we will initiate hemodialysis today with a 2 hour treatment and 1 L ultrafiltration. Repeat tomorrow. If tolerated well, then she can be discharged thereafter. She does have significant anemia. I will give her a single dose of erythropoietin and then we will manage her anemia in the outpatient clinic. cc: Osbaldo Britt MD
--- NOTE | 2019-05-03 14:23 | OPERATIVE NOTE ---
PROCEDURE DATE: 05/03/2019 PREOPERATIVE DIAGNOSIS: End-stage renal disease requiring hemodialysis. POSTOPERATIVE DIAGNOSIS: End stage renal dialysis requiring hemodialysis. PROCEDURE: Ultrasound of fluoroscopic-guided right internal jugular vein tunneled hemodialysis catheter. SURGEON: Silver Esparza MD HOOP PUNCHER: None. ANESTHESIA: General endotracheal. INTRAOPERATIVE FINDINGS: Ultrasound showed good caliber right internal jugular vein. Fluoroscopy showed the catheter in good position. COMPLICATIONS: None at time of dictation. ESTIMATED BLOOD LOSS: 5 mL. SPECIMENS REMOVED: None. BRIEF HISTORY: A 48-year-old female with end-stage renal disease, needing hemodialysis access. The risks, benefits, alternatives for placement were discussed all questions answered. DESCRIPTION OF PROCEDURE: After informed consent was obtained, the patient brought to the operative theatre, transferred to the operative table, placed supine position. General endotracheal anesthesia was then performed without complication. A formal time-out was then performed confirming patient, date and procedure. All were in agreement. At that time, attention was turned to the neck. Using ultrasound we identified the right internal right internal jugular vein. Under local anesthetic I was able to cannulate the right internal jugular vein, passed a wire seen under fluoro going to the superior vena cava. We then created a pocket on the right chest wall and tunneled the catheter from the right chest wall to the right neck and exchanged over the wire in typical Seldinger technique to place the tip of the catheter in the superior vena cava. Fluoroscopy showed the catheter in good position, no kinks and flushed and aspirated easily. We secured it in place in a standard fashion. The patient tolerated the procedure well. cc: Silver Esparza MD
--- NOTE | 2019-05-03 14:37 | PROGRESS NOTE ---
DATE: 05/03/2019 SUBJECTIVE: The patient states that she felt nauseous this morning. OBJECTIVE: Vital Signs: Temperature 97.6 degrees, blood pressure 137/68, heart rate 68, respirations 20, O2 saturations 97% on room air. General: This is a morbidly obese female lying in bed in no acute distress. Heart: S1, S2 normal. Regular rate and rhythm. Lungs: Clear to auscultation bilaterally. Abdomen: Positive bowel sounds. Soft, nontender, nondistended. Extremities: No edema, no cyanosis. Neurologic: The patient is alert and oriented x4. LABS: Hemoglobin 8.4, hematocrit 25, platelets 201,000, sodium 136, potassium 5.3, chloride 98, CO2 18, BUN 107, creatinine 4.6, glucose 143, phosphorus 8.5. ASSESSMENT AND PLAN: 1. End stage renal disease. The patient will undergo her first dialysis treatment today. Further management as per the code enforcement supervisor. 2. Hypertension. Continue on the current antihypertensive regimen. 3. Morbid obesity. Aware. 4. Insulin dependent diabetes mellitus type 2. Continue on the current insulin regimen. 5. Hypothyroidism. Continue on Synthroid. 6. Anemia. Stable. 7. Secondary hyperparathyroidism. Continue on PhosLo. 8. Deep vein thrombosis prophylaxis. Continue on heparin. cc: Martita Ansari MD MTDD
[2019-05-03] MEDS: ULTRAM PO PRN (17:17)
[2019-05-03] MEDS ORDERED: INSULIN PEN NEEDLES ONE (22:09)
[2019-05-03] MEDS: LIPITOR PO SCH (22:12)
[2019-05-04] MEDS: APRESOLINE PO SCH ×3 (05:35→21:29)
[2019-05-04] MEDS: HUMULIN R SUBQ SCH ×4 (06:32→21:29)
[2019-05-04] MEDS: SYNTHROID PO SCH (06:32)
[2019-05-04 08:05] LABS: HEMATOCRIT 23.9 % (37.0-47.0); HEMOGLOBIN 7.7 g/dL (12.0-16.0); MCH 27.7 PG (27-31); MCHC 32.2 g/dL (33-37); MPV 10.6 FL (7.4-10.4); RBC 2.78 XMIL (4.2-5.4); RDW 12.5 % (11.5-14.5); WBC 5.36 X1000 (4.8-10.8)
[2019-05-04 08:44] LABS: ALBUMIN 3.7 g/dL (3.5-5.0); CALCIUM 9.2 mg/dL (8.8-10.2); CREATININE 3.8 mg/dL (0.5-0.9); POTASSIUM 4.4 mmol/L (3.5-5.1)
[2019-05-04] MEDS ORDERED: HEPARIN IV PRN (08:49)
[2019-05-04] MEDS ORDERED: NS 2,000 ML MISC PRN (08:49)
--- NOTE | 2019-05-04 11:37 | PROGRESS NOTE ---
DATE: 05/04/2019 SUBJECTIVE: The patient is resting comfortably. She underwent her 1st dialysis session yesterday. She tolerated it without any difficulty. She is on dialysis right now. OBJECTIVE: Vital Signs: Temperature 98.4 degrees, blood pressure 126/55, heart rate 67, respirations 14, O2 saturation is 100% on room air. General: This is a middle-aged female, lying in bed, in no acute distress. Heart: S1, S2 normal. Regular rate and rhythm. Lungs: Equal air entry bilaterally. No crackles. No rales. Abdomen: Positive bowel sounds. Soft, nontender, nondistended. Extremities: No edema, no cyanosis. No calf tenderness. Neurologic: The patient is alert and oriented x3. LABORATORY DATA: White blood cell count 5.3, hemoglobin 7.7, hematocrit 23. Platelets 177,000. Sodium 133, potassium 4.4, chloride 95, CO2 27, BUN 64, creatinine 3.8, glucose 222. ASSESSMENT AND PLAN: 1. End-stage renal disease. Management as per the election watcher. 2. Hypertension. Stable. Continue on the current antihypertensive regimen. 3. Insulin-dependent diabetes mellitus type 2. Continue on the current insulin regimen. 4. Morbid obesity. Aware. 5. Hypothyroidism. Continue on Synthroid. 6. Anemia. The patient has been dosed with erythropoietin. Management as per the election watcher. 7. Secondary hyperparathyroidism. Continue on PhosLo. 8. Deep vein thrombosis prophylaxis. Continue on heparin. cc: Martita Ansari MD
[2019-05-04 12:50] LABS: HEPATITIS PROFILE ACUTE SEE COMMENTS
[2019-05-04] MEDS: PHOSLO PO SCH ×3 (12:59→16:50)
[2019-05-04] MEDS: COZAAR PO SCH (12:59)
[2019-05-04] MEDS: TENORMIN PO SCH ×2 (12:59→21:29)
[2019-05-04] MEDS: HUMULIN 70/30 SUBQ SCH ×2 (13:00→21:29)
[2019-05-04] MEDS: AMARYL PO SCH (13:02)
[2019-05-04] MEDS: ROCALTROL PO SCH (13:19)
--- NOTE | 2019-05-04 14:29 | NEPHROLOGY PROGRESS NOTE ---
DATE: 05/04/2019 SUBJECTIVE: She is on dialysis currently. No new complaints. She did not have any post dialysis symptoms yesterday. OBJECTIVE: Vital Signs: Blood pressure 100/50, heart rate 67, respiration 18, afebrile. Generally: No acute distress. Skin: Warm and dry. Neck: Neck veins are not distended. Heart: Regular. Lungs: Equal. Abdomen: Soft, nontender. Bowel sounds present. Extremities: No edema, clubbing or cyanosis. IMPRESSION: Chronic kidney disease 5D. She is undergoing her 2nd hemodialysis treatment. If she tolerates this well then she can be discharged and go to the outpatient center on Monday. cc: Osbaldo Britt MD
[2019-05-04] MEDS: LIPITOR PO SCH (21:29)
[2019-05-05] MEDS: ULTRAM PO PRN ×2 (00:59→20:38)
[2019-05-05] MEDS: APRESOLINE PO SCH ×3 (06:43→20:39)
[2019-05-05] MEDS: SYNTHROID PO SCH (06:43)
[2019-05-05] MEDS: HUMULIN R SUBQ SCH ×4 (06:43→20:39)
[2019-05-05] MEDS: COZAAR PO SCH (09:00)
[2019-05-05] MEDS: TENORMIN PO SCH ×2 (09:00→20:39)
[2019-05-05] MEDS: ROCALTROL PO SCH (09:00)
[2019-05-05] MEDS: PHOSLO PO SCH ×3 (09:00→16:06)
[2019-05-05] MEDS: AMARYL PO SCH (09:00)
[2019-05-05] MEDS: HUMULIN 70/30 SUBQ SCH ×2 (09:01→20:39)
--- NOTE | 2019-05-05 11:30 | Diag Imaging Result Doc PS360 ---
EXAM: CHEST-2 VIEWS 05/05/2019 HISTORY: dyspnea/cough TECHNIQUE: AP portable at 1118 COMMENT: The inspiration is better than on the previous study of 05/03/2019. The opacity previously present in the right upper lobe has diminished. Otherwise the lungs are clear and the heart and pulmonary vascularity are within normal limits. The double lumen catheter which was previously demonstrated on the right has not changed. IMPRESSION: No acute disease. Electronically signed by Trevon Norris 05/05/2019 11:28 AM
[2019-05-05 12:26] LABS: BASO# 0.03 X1000 (0.0-0.2); BASO% 0.6 % (0.0-0.8); EOS% 1.9 % (0.0-10.0); HEMATOCRIT 24.9 % (37.0-47.0); HEMOGLOBIN 7.9 g/dL (12.0-16.0); IMM GRAN# 0.02 X1000 (0.0-0.04); IMM GRAN% 0.4 % (0.0-0.5); LYMPH% 37.6 % (20.5-51.1); MCH 26.9 PG (27-31); MCHC 31.7 g/dL (33-37); MCV 84.7 FL (81-99); MONO# 0.45 X1000 (0.11-0.59); MONO% 8.5 % (1.7-9.3); MPV 10.7 FL (7.4-10.4); NEUT# 2.72 X1000 (1.4-6.5); PLT 168 X1000 (130-400); RBC 2.94 XMIL (4.2-5.4); RDW 12.3 % (11.5-14.5); WBC 5.32 X1000 (4.8-10.8)
[2019-05-05 12:33] LABS: ALBUMIN 3.4 g/dL (3.5-5.0); CALCIUM 9.1 mg/dL (8.8-10.2); CREATININE 3.5 mg/dL (0.5-0.9); POTASSIUM 4.3 mmol/L (3.5-5.1); TOTAL BILIRUBIN 0.47 mg/dL (0.20-1.00); TOTAL PROTEIN 6.8 g/dL (6.3-8.3)
--- NOTE | 2019-05-05 15:31 | PROGRESS NOTE ---
DATE: 05/05/2019 SUBJECTIVE: The patient reports that she feels weak today. She also complains of a lot of pain at the insertion site of her dialysis catheter. OBJECTIVE: Vital Signs: Temperature 97.9 degrees, blood pressure 126/65, heart rate 63, respirations 14, O2 saturation is 100% on room air. General: This is a morbidly obese female, lying in bed, in no acute distress. Heart: S1, S2 normal. Regular rate and rhythm. Lungs: Equal air entry bilaterally. No wheezing. No rales. No rhonchi. Abdomen: Positive bowel sounds. Soft, nontender, nondistended. Extremities: No edema, no cyanosis, no calf tenderness. Neurologic: The patient is alert and oriented x4. Labs: White blood cell count 5.3, hemoglobin 7.9, hematocrit 24, platelets 168,000. Sodium 132, potassium 4.3, chloride 94, CO2 of 26, BUN 44, creatinine 3.5, glucose 246. Chest x-ray shows no acute disease. ASSESSMENT AND PLAN: 1. End-stage renal disease. The patient is due for dialysis tomorrow. 2. Hypertension. Stable. 3. Insulin-dependent diabetes mellitus type 2. Continue on the current insulin regimen. 4. Hypothyroidism. Continue on Synthroid. 5. Morbid obesity. Aware. 6. Secondary hyperparathyroidism. Continue on PhosLo. 7. Anemia. On management as per the blending supervisor. 8. Deep vein thrombosis prophylaxis. Continue on heparin. 9. Disposition. We will plan to discharge the patient home tomorrow after her dialysis session. cc: Martita Ansari MD MTDD
[2019-05-05] MEDS ORDERED: INSULIN PEN NEEDLES ONE (17:50)
[2019-05-05] MEDS: LIPITOR PO SCH (20:39)
[2019-05-05] MEDS: HEPARIN SUBQ SCH (20:39)
[2019-05-06] MEDS: HUMULIN R SUBQ SCH ×2 (06:14→13:19)
[2019-05-06] MEDS: APRESOLINE PO SCH ×2 (06:15→13:16)
[2019-05-06] MEDS: SYNTHROID PO SCH (06:15)
[2019-05-06] MEDS ORDERED: TIGHT: 0.2 ML/HR FOR DIALYSIS MISC PRN (06:41)
[2019-05-06] MEDS ORDERED: NS 2,000 ML MISC PRN (06:41)
[2019-05-06] MEDS ORDERED: HEPARIN IV PRN (06:41)
[2019-05-06] MEDS: ZOFRAN IV PRN (07:39)
[2019-05-06 08:00] VITALS: BP 141/64
[2019-05-06 08:18] LABS: HEMATOCRIT 25.2 % (37.0-47.0); HEMOGLOBIN 8.1 g/dL (12.0-16.0); MCHC 32.1 g/dL (33-37); MPV 10.8 FL (7.4-10.4); RDW 12.4 % (11.5-14.5); RETIC% 1.59 % (0.8-2.1); RETIC-HE 31.8 PG (28.2-36.6); WBC 4.2 X1000 (4.8-10.8)
[2019-05-06 08:38] LABS: ALBUMIN 3.6 g/dL (3.5-5.0); CALCIUM 8.9 mg/dL (8.8-10.2); CREATININE 3.9 mg/dL (0.5-0.9); PHOSPHORUS 4.3 mg/dL (2.7-4.5); POTASSIUM 4.3 mmol/L (3.5-5.1)
[2019-05-06 08:52] LABS: FERRITIN 151 ng/mL (13-150)
[2019-05-06] MEDS: PHOSLO PO SCH ×2 (10:13→13:17)
[2019-05-06] MEDS: TENORMIN PO SCH (13:16)
[2019-05-06] MEDS: COZAAR PO SCH (13:16)
[2019-05-06] MEDS: ROCALTROL PO SCH (13:17)
[2019-05-06] MEDS: HEPARIN SUBQ SCH (13:17)
[2019-05-06] MEDS: HUMULIN 70/30 SUBQ SCH (13:22)
[2019-05-06] MEDS: AMARYL PO SCH (13:23)
--- NOTE | 2019-05-06 19:13 | NEPHROLOGY PROGRESS NOTE ---
DATE: 05/06/2019 SUBJECTIVE: No complaints, hoping to go home today. States that she was not discharged over the weekend secondary to the fact that she drove herself to the hospital and assurance needed to be made that she would be safe to drive home. OBJECTIVE: Vital Signs: Temperature 98.6 degrees, pulse 60, respiratory rate 19, blood pressure 147/67, intake 300 mL. Output not measured. General: This is a middle-aged female, sitting up in bed. Awake, alert, no acute distress. HEENT: Normocephalic, atraumatic. HTOR. Neck: Supple without JVD. Cardiovascular: Regular rate and rhythm. No murmur. Pulmonary: Clear bilaterally. Abdomen: Soft, positive bowel sounds. Genitourinary: Not inspected. Extremities: No clubbing, cyanosis, or edema. Integumentary: Skin is warm and dry. LABORATORY DATA: Pending. ASSESSMENT: Chronic kidney disease, stage 5D. PLAN: From a renal perspective, she can be discharged at the discretion of the primary. We will go ahead and dialyze her this morning, in the event that she can be discharged later today. Dictated by CHRISTIAN Wakefield for Osbaldo Britt MD Face to face encounter, data reviewed, discussed with Darron Mirza on 05/06/19. I agree with the above assessment and plan of care. cc: Osbaldo Britt MD [facility]
== END 2019-05-06 15:56 | disposition home or self-care (01) | DRG 673 ==
LOC: DIRADM → OBSVTOIN 14:06 → SUATTDRO 14:06 → 1N 14:20
PROVIDERS: ATTEND Internal Medicine
CPT/HCPCS: 71010; 71020; 71045; 71046; 77001; 80053; 80069; 80074; 80076; 81001; 82607; 82728; 82746; 82948; 83036; 83540; 83550; 85025; 85027; 85045; 85610; 85730; 93005; 93010; A9270; C1750; J0690; J0885; J1644; J2405; J7030; J7050; S0020; XXXXX

== ENCOUNTER 2019-06-19 06:57 | Inpatient (IN) ==
[2019-06-19] MEDS ORDERED: 1/2 NS 500 ML ONE (07:29)
[2019-06-19] MEDS ORDERED: KEFZOL 1 GM/D5W 1 GM/50 ML IVPB ONE (07:29)
[2019-06-19 08:06] LABS: HEMATOCRIT 30.7 % (37.0-47.0); HEMOGLOBIN 10.2 g/dL (12.0-16.0); MCHC 33.2 g/dL (33-37); MCV 87.2 FL (81-99); MPV 11.6 FL (7.4-10.4); RBC 3.52 XMIL (4.2-5.4); WBC 6.14 X1000 (4.8-10.8)
[2019-06-19 10:05] LABS: BE -1.5 mmoll (-3.0-3.0); BLOOD TYPE ARTERIAL; HCO3-(ACT) 23.7 mmoll (20.0-26.0); METHB 1.4 % (0.0-1.5); O2(CT) 13.4 mL/dL (15.0-23.0); O2HB 94.6 % (95.0-99.0); PCO2(98.6) 36 mmHg (35-45); PO2(98.6) 84 mmHg (60-100); SAMPLE BLOOD; SAO2 97.5 % (95.0-100.0); pH(98.6) 7.41 (7.35-7.45)
[2019-06-19 10:06] LABS: ALLEN TEST NO; MODALITY ROOM AIR
--- NOTE | 2019-06-19 10:22 | EKG Report ---
Test Performed on : 06/19/2019 09:50:15 AM Test Reason : per hospitalist order- esrd, blood sugar > 500 Blood Pressure : / mmHG Vent. Rate : 078 BPM Atrial Rate : 078 BPM P-R Int : 214 ms QRS Dur : 104 ms QT Int : 434 ms P-R-T Axes : 029 034 -01 degrees QTc Int : 494 ms Sinus rhythm. with 1st degree AV block. Cannot rule out Anterior infarct (cited on or before 20-MAR-2019) Abnormal ECG When compared with ECG of 02-MAY-2019 14:44, Inverted T waves have replaced nonspecific T wave abnormality in Inferior leads Nonspecific T wave abnormality now evident in Lateral leads Confirmed by Jonah MCCLURE, Leonel Maxwell ([id number]) on 06/20/2019 8:19:00 AM
[2019-06-19 10:34] LABS: ALBUMIN 3.9 g/dL (3.5-5.0); CALCIUM 8.5 mg/dL (8.8-10.2); POTASSIUM 3.3 mmol/L (3.5-5.1); TOTAL BILIRUBIN 0.66 mg/dL (0.20-1.00); TOTAL PROTEIN 7.7 g/dL (6.3-8.3)
[2019-06-19 10:45] LABS: HEMATOCRIT 29.6 % (37.0-47.0); HEMOGLOBIN 9.7 g/dL (12.0-16.0); MCH 28.5 PG (27-31); MCHC 32.8 g/dL (33-37); MCV 87.1 FL (81-99); MPV 11.1 FL (7.4-10.4); RBC 3.4 XMIL (4.2-5.4); RDW 14.9 % (11.5-14.5); WBC 6.26 X1000 (4.8-10.8)
[2019-06-19 10:59] LABS: HEMOGLOBIN A1C 10.7 % (4.8-6.0)
[2019-06-19] MEDS ORDERED: HUMULIN R IV ONE (11:03)
[2019-06-19] MEDS ORDERED: D50W SYRINGE IV PRN (11:03)
[2019-06-19] MEDS ORDERED: TYLENOL PO PRN (11:13)
[2019-06-19] MEDS ORDERED: ZOFRAN IV PRN (11:13)
--- NOTE | 2019-06-19 12:10 | HISTORY AND PHYSICAL ---
PRIMARY CARE PROVIDER: Dr. Euceda PRIMARY LEAD ELECTRICAL ENGINEER: Dr. Britt CONSULTED BY: Dr. Esposito, as the patient was preop for an AV fistula. REASON FOR ADMISSION AND CONSULTATION: Hyperglycemia, surgery was put on hold. HISTORY OF PRESENT ILLNESS: Ms. Jacqueline Gomez is a 48-year-old female with a medical history of end-stage renal disease. She has been receiving dialysis since March. She was actually diagnosed with end-stage renal in October 2018, also with a medical history of 20 years plus of diabetes mellitus type 2, 20 years plus of hyperlipidemia, diabetic neuropathy, diabetic retinopathy, hypothyroidism, hyperlipidemia, and obesity who apparently was preoperative today to have an AV fistula placed by Dr. Esposito. Blood glucose level was checked, as she is a diabetic, and it was found to be greater than 500, and we were consulted for admission to control her blood glucose level in prep for surgery. A BMP revealed that she had an actual blood glucose level, serum blood glucose level of 801. There are no signs of actual acidosis. Her hemoglobin A1c was 10.7, so she is currently having poorly controlled diabetes. According to her, insurance just kicked in. She was supposed to be taking 70/30 twice a day. She was actually using someone else's Lantus and taking 30 units twice a day. She is supposed to check her sugar, blood glucose levels twice a day. There is no sliding scale insulin that she takes, but she admits to not checking her blood glucose levels as she needs to. According to her, yesterday she did have chocolate chip cookies. She had some honey on some shrimp, but that is all the sugar that she can recall that she was having. She denies any symptoms that go with elevated blood glucose level such as abdominal pain. She is end-stage renal, so there is not increased urinary frequency, but we will have to transfer her to the PVC unit in order to start her on an insulin drip. Otherwise, her vital signs are stable. She is stable, and we will continue to medically manage her. PAST MEDICAL HISTORY: 1. End-stage renal disease since October 2018, was started on peritoneal dialysis in March, but had to have the peritoneal dialysis catheter removed due to MRSA and then had a hemodialysis catheter placed in April where she started hemodialysis on Tuesdays, , and Saturdays. They have been taken 3+ kg each dialysis treatment. 2. Diabetes mellitus type 2, uncontrolled for 20+ years. 3. Hypertension, 20 years plus. 4. Hyperlipidemia. 5. Diabetic neuropathy. 6. Right eye cataract. 7. Diabetic retinopathy. 8. Secondary hyperparathyroidism. 9. Osteoarthritis. 10. Hypothyroidism. 11. Morbid obesity with a BMI of 39.7. 12. Had a longstanding history of using ibuprofen for many, many years, but has been off that for 2 to 3. 13. Iron deficiency anemia. PAST SURGICAL HISTORY: 1. section. 2. Bilateral tubal ligation. 3. Cholecystectomy. 4. Right great toe amputation. 5. Peritoneal dialysis catheter insertion on 03/22/2019 and discontinuation on 04/05/2019. FAMILY HISTORY: Father of a myocardial infarction at the age of 47, mother at the age of 43 due to adenocarcinoma of the stomach. SOCIAL HISTORY: She denies tobacco, alcohol, or illicit drug use. ALLERGIES: Sulfa causes her vomiting. HOME MEDICATIONS: 1. Atorvastatin 40 mg p.o. nightly. 2. Insulin 70/30, she is supposed to take 30 units in the morning and 20 units at night. She admits to taking Lantus 30 units in the morning and 30 units at night. She has not been taking the 70/30. 3. Amlodipine besylate 10 mg p.o. daily. 4. Coreg 12.5 mg p.o. twice daily. 5. Losartan 100 mg p.o. daily. 6. Diailyvite 800 mcg p.o. daily. 7. Lasix it appears that she takes 120 mg twice a day. 8. Glimepiride 4 mg p.o. daily. 9. Synthroid 100 mcg p.o. daily. 10. PhosLo 667 mg p.o. t.i.d. REVIEW OF SYSTEMS: A 14-point review of systems are complete and all were negative except those mentioned above in the HPI. PHYSICAL EXAMINATION: VITAL SIGNS: Temperature 98.4 degrees, heart rate 76, respiratory rate 18, blood pressure 148/76, and O2 saturation 93% on room air. She is 5 feet 10 inches tall, 277 pounds, BMI 39.7. GENERAL: Jacqueline Gomez is a 48-year-old female. She is in no acute distress. She is able to answer questions appropriately. HEENT: Atraumatic, normocephalic. Pupils equal, round, reactive to light. Extraocular movements intact. Mucous membranes are moist. NECK: Trachea midline. CARDIOVASCULAR: S1 and S2. Regular rate and rhythm. No rubs, gallops, murmurs. No lower extremity edema. There are +2 dorsalis and radial pulses. Negative JVD or carotid bruits. PULMONARY: Clear to auscultation. Bilateral breath sounds. No accessory muscle use or work of breathing noted. ABDOMEN: Soft, nontender, nondistended. Positive bowel sounds x4. EXTREMITIES: Moves all extremities equally. Full range of motion. NEUROLOGIC: A and O x3. Follows commands. Sensory is intact. SKIN: Warm, dry, intact. LABORATORY DATA: White blood cells 6000, hemoglobin 9, hematocrit 29, platelet count 266,000. ABGs on room air show pH 7.41, pCO2 of 36, PO2 of 84, bicarbonate 23, base excess -1.5, saturation 94%, lactate 1.6. Sodium 130, potassium 3.3, BUN 28, creatinine 3, glucose 801, hemoglobin A1c is 10.7, calcium 8.5, magnesium 2, bilirubin 0.66, AST 14, ALT 15. Albumin 3.9, serum lactate 1.7. test negative. IMAGING STUDIES: Imaging, none. EKG sinus rhythm, first-degree AV block, rate of 78, QTc 494. ASSESSMENT AND PLAN: 1. Likely hyperosmolar/hyperglycemic/nonketotic hyperglycemia. We will start her on insulin drip per the diabetic ketoacidosis protocol. She will not be getting intravenous fluids. We will not be getting serial BNPs. She will have every 1 hour blood glucose levels, and we will monitor her on PVC. She is not acidotic. We will follow her up on acetones. She is nonsymptomatic. 2. End-stage renal disease, receives dialysis on Tuesdays, , and Saturdays. She is followed by Dr. Britt. 3. Preoperative for arteriovenous fistula by Dr. Esposito. We will consult him so he can follow along. 4. Uncontrolled diabetes mellitus type 2 for 20+ years. Please see number 1. She is uncontrolled at this time. She has only been taking Lantus 30 twice a day. She has not been checking her blood glucose levels, so she has been quite noncompliant, but also states that 70/30 costs her 400 dollars, but her insurance company just now started up, and she has had it filled, but not started taking it yet. Apparently, she has been taking someone else's Lantus 30 units twice a day. 5. Hypothyroidism. Continue Synthroid. 6. Hyperlipidemia. Continue statin. We will check lipid panel. 7. Hypertension. Continue home medications. 8. Deep venous thrombosis prophylaxis. We will do sequential compression devices. 9. She should be preoperative. We will keep her nothing by mouth for tomorrow. Dictated by CHRISTIAN Jones for Shaquille Rodriguez MD cc: CHRISTIAN Jones MD I agree with most components of history, physical, assessment and plan. A separate addendum has been dictated. LOLA
[2019-06-19] MEDS ORDERED: HUMULIN R ONE (13:51)
[2019-06-19] MEDS: PHOSLO PO SCH ×2 (15:42→17:10)
[2019-06-19] MEDS: HUMULIN R 100 UNIT in NS 100 ML IV SCH (15:47)
[2019-06-19] MEDS ORDERED: KLOR-CON PO ONE (17:05)
[2019-06-19] MEDS ORDERED: COZAAR PO ONE (17:08)
[2019-06-19] MEDS ORDERED: KLOR-CON PO SCH (17:15)
[2019-06-19] MEDS: POTASSIUM CHLORIDE 20 MEQ/SWI 20 MEQ/100 ML IVPB IV SCH ×2 (17:52→21:49)
[2019-06-19 20:08] LABS: CREATININE 3.2 mg/dL (0.5-0.9); POTASSIUM 2.9 mmol/L (3.5-5.1)
[2019-06-19] MEDS: COREG PO SCH (20:44)
[2019-06-19] MEDS: LIPITOR PO SCH (20:44)
[2019-06-19] MEDS: LASIX PO SCH (20:44)
--- NOTE | 2019-06-19 21:04 | Extremity Venous Study ---
PROCEDURE NAME: Vein Map/Hemodialysis LT Arm - 06/19/2019 LEFT ARM SUPERFICIAL VEIN MAPPING FOR HEMODIALYSIS ACCESS: REFERRING PHYSICIAN: Dr. Esposito. KITCHEN HELPER: Shreya Garcia RVT. FINDINGS: The left cephalic vein along its length was patent and compressible. It measured in the arm from 2.7 to 4.0 mm in greatest dimension. In the left forearm, it measured 2.5 to 3.3 mm in greatest dimension. This vein was marked throughout the length of her arm. The basilic vein medial aspect of the left arm measured 2.2 to 4.0 mm in greatest dimension. The brachial artery was 4.1 mm, the radial artery 1.9 mm, ulnar artery 1.8 mm. INTERPRETATION: The patient is right-hand dominant. It appears that her left upper extremity cephalic vein could be sufficient for AV fistula in the left forearm or left arm. cc: MD Shaquille Sanchez MD
[2019-06-20 00:29] LABS: CALCIUM 8.9 mg/dL (8.8-10.2); POTASSIUM 3.5 mmol/L (3.5-5.1)
--- NOTE | 2019-06-20 06:02 | HISTORY AND PHYSICAL ---
ADDENDUM: Addendum to history and physical dictated by nurse practitioner and I agree with most components of history, physical, assessment, and plan. HISTORY OF PRESENT ILLNESS: In brief, Ms. Gomez is 48-year-old, lady, with past medical history of chronic kidney disease stage 5, on Monday, , Monday hemodialysis; essential hypertension, hypothyroidism, morbid obesity, hyperlipidemia, secondary hyperparathyroidism, insulin-dependent diabetes mellitus type 2, noncompliant because of insurance issue, who was supposed to get left arm AV fistula vascular surgery today, when she was found to have blood glucose of more than 500. So, patient was admitted to the hospital and consulted with hospitalist team for further management. At the time of my evaluation, patient denies any chest pain, shortness of breath, polydipsia, polyuria, or burning in her urine. We discussed about being compliant with medication, keeping her insulin drip, and answered all of her questions. VITAL SIGNS: Currently, temperature 98.7 degrees, pulse 77, respiratory rate 18, blood pressure 190/110, saturating 95% room air. PHYSICAL EXAMINATION: GENERAL: Not in acute distress. Morbidly obese. ORAL CAVITY: Moist. RESPIRATORY: Air entry bilaterally equal. No wheeze or crackles. She has a right chest dialysis catheter. The site appears noninflamed. CARDIOVASCULAR: S1, S2 normal. No murmur or gallop. ABDOMEN: Soft, nontender, obese. EXTREMITIES: No lower extremity edema, except mild. LABORATORY: Labs suggestive of hyponatremia, hypokalemia, hypochloremia, CKD stage 5. She does have glucose in 800 range on presentation. Acetone level was unremarkable. Blood culture was sent. IMAGING: EKG suggestive of sinus rhythm with first-degree AV block. ASSESSMENT AND PLAN: 1. Uncontrolled diabetes mellitus with hyperglycemia. I will start patient on intravenous insulin drip. Unfortunately, her potassium was not repleted before insulin drip was started. I discussed with the nurse about quickly repleting potassium with oral and IV, and I repeated a BMP stat. My goal is to keep her insulin drip so as to undergo vascular surgery. After surgery, I will slowly transition her to subcutaneous insulin regimen. 2. Chronic kidney disease stage 5. I will continue her home furosemide, calcium acetate, and consult Nephrology for Monday, , Monday hemodialysis. 3. Others. Continue losartan, amlodipine, and carvedilol for essential hypertension; furosemide for volume overload related to chronic kidney disease. DISPOSITION: I will continue to monitor patient in the PVC unit for need for insulin drip. Plan of care discussed with her. Her questions have been answered. cc: Shaquille Rodriguez MD
[2019-06-20 06:14] LABS: BASO# 0.03 X1000 (0.0-0.2); BASO% 0.4 % (0.0-0.8); EOS# 0.19 X1000 (0.0-0.7); EOS% 2.8 % (0.0-10.0); HEMATOCRIT 29.4 % (37.0-47.0); HEMOGLOBIN 9.6 g/dL (12.0-16.0); IMM GRAN# 0.03 X1000 (0.0-0.04); IMM GRAN% 0.4 % (0.0-0.5); LYMPH# 1.77 X1000 (1.2-3.4); MCH 28.4 PG (27-31); MCHC 32.7 g/dL (33-37); MONO# 0.38 X1000 (0.11-0.59); MONO% 5.6 % (1.7-9.3); MPV 10.9 FL (7.4-10.4); NEUT% 64.8 % (42.2-75.2); PLT 254 X1000 (130-400); RBC 3.38 XMIL (4.2-5.4); RDW 15.3 % (11.5-14.5)
[2019-06-20] MEDS ORDERED: NS 2,000 ML MISC PRN (06:21)
[2019-06-20] MEDS ORDERED: TIGHT: 0.2 ML/HR FOR DIALYSIS MISC PRN (06:21)
[2019-06-20] MEDS ORDERED: HEPARIN IV PRN (06:21)
[2019-06-20 06:23] LABS: INR 1.05; PROTIME 13.9 Seconds (11.0-16.0)
[2019-06-20 06:24] LABS: PTT 26.3 Seconds (22.3-41.8)
[2019-06-20] MEDS: SYNTHROID PO SCH (06:31)
[2019-06-20 06:37] LABS: ALB/GLOB RATIO 0.9; ALBUMIN 3.3 g/dL (3.5-5.0); CALCIUM 9.3 mg/dL (8.8-10.2); CREATININE 3.1 mg/dL (0.5-0.9); POTASSIUM 3.2 mmol/L (3.5-5.1); TOTAL BILIRUBIN 0.56 mg/dL (0.20-1.00)
--- NOTE | 2019-06-20 08:01 | Diag Imaging Result Doc PS360 ---
EXAM: CHEST-2 VIEWS 06/20/2019 HISTORY: f/u preop TECHNIQUE: PA and lateral chest COMMENT: There is a double-lumen catheter in the right internal jugular with its tip just above the right atrium. The lungs are clear and the heart and pulmonary vascularity are within normal limits. Compared to the previous examination of 05/05/2019 the appearance the chest has not changed significantly. IMPRESSION: Stable chest. Electronically signed by Treovn Norris 06/20/2019 7:59 AM
[2019-06-20] MEDS: NORVASC PO SCH (08:36)
[2019-06-20] MEDS: PHOSLO PO SCH ×3 (08:37→17:34)
[2019-06-20] MEDS: LASIX PO SCH ×2 (08:37→21:39)
[2019-06-20] MEDS: NEPHRO-VITE PO SCH (08:37)
[2019-06-20] MEDS: COZAAR PO SCH (08:37)
[2019-06-20] MEDS: COREG PO SCH ×2 (08:37→21:39)
--- NOTE | 2019-06-20 08:53 | PROGRESS NOTE ---
DATE: 06/20/2019 Jacqueline Gomez is a 48-year-old white female patient of Dr. Britt, who presented to Outpatient Surgery yesterday for left upper extremity AV fistula for access for chronic hemodialysis. It was noted that her sugar was over 500 and our anesthesiologist canceled the case. She has been admitted to the Hospitalist for glucose control. Evidently, she has been noncompliant with her insulin. We had our Vascular Lab ashok her cephalic vein along the length of her left upper extremity and we hope to do a left upper extremity AV fistula. The cephalic vein appeared possibly adequate for a good fistula. She has had a PICC placed twice in the left cephalic vein. Today, she is due dialysis, I think that is planned per Dr. Britt as an inpatient and we will have to schedule our surgery around her hemodialysis. She has a Permacath in place. We will also have to negotiate the operating room secondary to an add-on case. Right now, she remains n.p.o. cc: MD Shaquille Sanchez MD
[2019-06-20] MEDS ORDERED: KLOR-CON PO ONE (11:46)
--- NOTE | 2019-06-20 12:40 | PROGRESS NOTE ---
DATE: 06/20/2019 INTERVAL HISTORY: No acute events overnight. Her blood sugar came down to 200s after receiving insulin drip. Her potassium was low which is being repleted. Surgical team is planning to put in left arm AV fistula as operating room schedule permits. I saw patient in the dialysis room. She is denying any complaints. She asked me about her EKG, which I reported that considering she does not have any chest pain or shortness of breath, nonspecific EKG findings are not concerning. CURRENT VITALS: Temperature 97.8 degrees, pulse 72, respiratory rate 47, blood pressure 145/75. She is saturating 99% on room air. PHYSICAL EXAMINATION: General: She is morbidly obese, not in any acute distress. Oral cavity: Moist. Lungs: Air entry bilaterally equal. No wheeze, rhonchi, crackles. Cardiovascular: S1, S2 normal. No murmur, rub, or gallop. She has a right-sided chest dialysis catheter. Abdomen: Obese, soft, nontender. Extremities: Only mild lower extremity edema. LABS: Suggestive of normocytic anemia, normal platelet count. Hypokalemia which is repleted. Elevated BUN and creatinine. CKD stage V. Blood sugar was 189. Her TSH is low, and I would advise outpatient follow-up. ASSESSMENT AND PLAN: 1. Uncontrolled diabetes mellitus with hyperglycemia. Continue intravenous insulin drip. The goal is to have blood sugar between 140 and 180 ideally, but considering she has had uncontrolled diabetes for a long time, my goal is to keep blood glucose less than 220. I will monitor for hypokalemia and replete it, and later on I will transition her to insulin Humulin 70/30 at the time of discharge. 2. Chronic kidney disease, stage V. Continue home furosemide, calcium acetate, Monday, , Monday hemodialysis. Appreciate Surgery recommendation about left arm AV fistula surgery. 3. Others. Continue losartan, amlodipine and carvedilol for essential hypertension; furosemide for volume overload related to chronic kidney disease. 4. Disposition: I will continue to monitor patient in PVC unit. I will space out blood sugar checks every 2 hours. Plan of care discussed with the patient and her questions have been answered. cc: Shaquille Rodriguez MD
[2019-06-20] MEDS: HUMULIN R 100 UNIT in NS 100 ML IV SCH (12:45)
[2019-06-20] MEDS ORDERED: FENTANYL ONE (12:55)
[2019-06-20] MEDS ORDERED: AMIDATE ONE (12:58)
[2019-06-20] MEDS ORDERED: XYLOCAINE-MPF 2% ONE (12:58)
[2019-06-20] MEDS ORDERED: NS 1,000 ML ONE (13:10)
[2019-06-20] MEDS ORDERED: XYLOCAINE-MPF 1%/EPI 1:200,000 ONE (13:10)
[2019-06-20] MEDS ORDERED: HEPARIN ONE (13:10)
[2019-06-20] MEDS ORDERED: KEFZOL 1 GM/D5W 1 GM/50 ML IVPB ONE (13:16)
[2019-06-20] MEDS: POTASSIUM CHLORIDE 20 MEQ/SWI 20 MEQ/100 ML IVPB IV SCH ×2 (13:34→13:35)
[2019-06-20 14:02] LABS: BASO# 0.03 X1000 (0.0-0.2); BASO% 0.5 % (0.0-0.8); EOS# 0.19 X1000 (0.0-0.7); HEMATOCRIT 30.9 % (37.0-47.0); HEMOGLOBIN 10.1 g/dL (12.0-16.0); IMM GRAN# 0.02 X1000 (0.0-0.04); IMM GRAN% 0.3 % (0.0-0.5); LYMPH% 30.5 % (20.5-51.1); MCH 28.5 PG (27-31); MCHC 32.7 g/dL (33-37); MONO# 0.41 X1000 (0.11-0.59); MONO% 6.6 % (1.7-9.3); NEUT# 3.68 X1000 (1.4-6.5); NEUT% 59.1 % (42.2-75.2); PLT 252 X1000 (130-400); RBC 3.55 XMIL (4.2-5.4); RDW 15.5 % (11.5-14.5); WBC 6.23 X1000 (4.8-10.8)
[2019-06-20] MEDS ORDERED: HEPARIN (DOSE) ONE (14:05)
[2019-06-20 14:26] LABS: POTASSIUM 3.7 mmol/L (3.5-5.1)
[2019-06-20 14:27] LABS: CALCIUM 9.1 mg/dL (8.8-10.2); CREATININE 1.7 mg/dL (0.5-0.9)
--- NOTE | 2019-06-20 15:18 | NEPHROLOGY CONSULTATION ---
DATE: 06/20/2019 REASON FOR ADMISSION: Hyperglycemia. REASON FOR CONSULTATION: Assistance with management, CKD 5D. CONSULTING PHYSICIAN: Dr. Esposito. HISTORY OF PRESENT ILLNESS: This is a 48-year-old female known to our service for end-stage renal disease, on hemodialysis. She has been on hemodialysis since March after she developed peritonitis and lost her PD access. The patient had planned to come in to the hospital on day of admission for an AV fistula. When her labs were checked she was found to have a blood sugar of greater than 500. A BMP revealed that she actually had a blood sugar of 800. Her A1c was greater than 10 and so she was admitted to the hospital for stabilization. She has been placed on an insulin drip and when we see her this morning she is feeling much better and her blood sugars have been significantly improved. PAST MEDICAL HISTORY: End-stage renal disease, started on peritoneal dialysis earlier in the year and unfortunately developed peritonitis and transitioned over to hemodialysis. She was planned to have an AV fistula created this week. Diabetes type 2, hypertension, hyperlipidemia, diabetic neuropathy, right eye cataract, diabetic retinopathy, hyperparathyroidism, osteoarthritis, hypothyroidism, morbid obesity, anemia, hyperphosphatemia. PAST SURGICAL HISTORY: section, tubal ligation, cholecystectomy, right great toe amputation, peritoneal dialysis catheter insertion and discontinuation, tunneled dialysis catheter insertion. ALLERGIES: Sulfa. HOME MEDICATIONS: Atorvastatin, insulin, amlodipine, Coreg, losartan, Dialyvite, Lasix, Glimepiride, Synthroid, PhosLo. FAMILY HISTORY: Myocardial infarction, adenoma. SOCIAL HISTORY: No tobacco, alcohol, or illicit drug use. REVIEW OF SYSTEMS: Essentially negative. PHYSICAL EXAMINATION: Vital Signs: Temperature 98.3 degrees, pulse 76, respiratory rate 19, blood pressure 122/67. Intake 111. Output 650 mL. General: This is a middle-aged female, resting in bed. She is awake and alert. She does not appear in acute distress. HEENT: Normocephalic, atraumatic. PERRL. Neck: Supple without JVD. Cardiovascular: Regular rate and rhythm with a systolic murmur. Pulmonary: She is clear bilaterally. Abdomen: Soft, obese. Positive bowel sounds. : Voiding. Extremities: No clubbing or cyanosis. She has trace lower extremity edema. Is moving all extremities. Integumentary: Skin is warm and dry. LAB DATA: WBC 6.8, hemoglobin 9.6, platelets 254,000. Sodium 135, potassium 3.2, CO2 22, creatinine 3.1, glucose 260. Her fingerstick blood sugar done at 12:30 today was down to 129. Chest x-ray: Negative. ASSESSMENT AND PLAN: 1. Chronic kidney disease 5D. We will plan to dialyze her per her routine dialysis treatments. 2. Hyperglycemia. Followed by primary. She is currently on an insulin drip. 3. Preoperative arteriovenous fistula. Surgery today. Dictated by CHRISTIAN Wakefield for Osbaldo Britt MD Face to face encounter, data reviewed, discussed with Darron Mirza on 06/20/19. I agree with the above assessment and plan of care. cc: MD Shaquille Guillory MD [facility]
[2019-06-20] MEDS ORDERED: NORCO-10 ONE (15:48)
[2019-06-20] MEDS ORDERED: NORCO-10 PO PRN (16:06)
--- NOTE | 2019-06-20 21:01 | OPERATIVE NOTE ---
PROCEDURE DATE: 06/20/2019 PREOPERATIVE DIAGNOSIS: Endstage renal disease, requiring chronic hemodialysis. POSTOPERATIVE DIAGNOSIS: Endstage renal disease, requiring chronic hemodialysis. PRINCIPAL PROCEDURE: Left arm cephalic to brachial artery arteriovenous fistula. SURGEON: Margarita Esposito MD CABLE FORMER: sav Pedersenrv technician. ANESTHESIA: General. ESTIMATED BLOOD LOSS: 30 mL DRAINS: None. INDICATIONS: Ms. Jacqueline Gomez is a 48-year-old white female diabetic who has endstage renal disease and requires chronic hemodialysis. She is dialyzing through a right-sided PermCath at this time. She was actually hospitalized yesterday to have this fistula placed surgically, but her sugar was over 500 and it was canceled by Anesthesia. She was hospitalized overnight and the hospitalists have treated her hyperglycemia. We wanted to proceed with her AV fistula today. Our vascular lab has marked the cephalic vein along its length. She is right-hand dominant. FINDINGS: It was felt that she had a good cephalic vein, left arm, for AV fistula. We felt also that the brachial artery was large enough, and therefore we performed an end-to-side cephalic vein to brachial artery AV fistula. At the end of the procedure we had good flow through the fistula. DESCRIPTION OF PROCEDURE: The patient was brought to the operating room, placed supine, received general anesthesia and was ventilated using LMA. The left upper extremity was prepped and draped within a sterile field. It had been previously marked, both the vein and the artery, by our vascular lab. She received Ancef prophylactically. I began the procedure by making a small incision, distal left arm overlying the cephalic vein with a 15 blade scalpel. Forceps and scissors were used to identify the cephalic vein, which we felt was good caliber. We mobilized the cephalic vein in the distal left arm. We made a counterincision more medially in the distal left arm and again with a 15 blade scalpel. Then forceps and scissors were used to dissect out the brachial artery and isolate a segment of it between Vesseloops. I divided the cephalic vein between hemostats. I tied off the distal cephalic vein with a 3-0 silk tie. I tunneled the cephalic vein subcutaneously down to the brachial artery. We controlled flow through the brachial artery with the Vesseloops. I made an arteriotomy with 11 blade scalpel and Garcia scissors. I irrigated with heparin saline the artery, then I performed using double-arm 6-0 Prolene stitch an end-to-side anastomosis between the cephalic vein and the brachial artery. Flow was established through the fistula. No further stitches had to be taken and there was good flow through our fistula. We felt a palpable pulse distal to our anastomosis in the brachial artery and proximally. We closed our wounds in layers, first layer with 3-0 popoff Vicryl stitches. We closed the subcutaneous tissue. The skin was closed with 4-0 Monocryl subcuticular stitches. Steri-Strips were applied. Plans are for her to go to the recovery room and possibly be hospitalized overnight, depending on her electrolytes. cc: MD Shaquille Sanchez MD
[2019-06-20] MEDS: LIPITOR PO SCH (21:39)
[2019-06-20 23:44] LABS: UR AMPHETAMINES QUAL NONE DETECTED (NONE DETECT); UR BARBITUATES QUAL NONE DETECTED (NONE DETECT)
[2019-06-20 23:45] LABS: UR BENZODIAZEPIN QUAL NONE DETECTED (NONE DETECT); UR CANNABINOIDS QUAL NONE DETECTED (NONE DETECT); UR COCAINE QUAL NONE DETECTED (NONE DETECT); UR METHADONE QUAL NONE DETECTED (NONE DETECT); UR OXYCODONE QUAL NONE DETECTED (NONE DETECT); UR PCP QUAL NONE DETECTED (NONE DETECT)
[2019-06-21 00:01] LABS: UR OPIATES QUAL PRESUMPTIVE POSITIVE (NONE DETECT)
[2019-06-21] MEDS: SYNTHROID PO SCH (06:06)
[2019-06-21] MEDS: LASIX PO SCH ×2 (09:23→20:25)
[2019-06-21] MEDS: PHOSLO PO SCH ×3 (09:23→16:48)
[2019-06-21] MEDS: NORVASC PO SCH (09:23)
[2019-06-21] MEDS: COREG PO SCH ×2 (09:23→20:25)
[2019-06-21] MEDS: NEPHRO-VITE PO SCH (09:23)
[2019-06-21] MEDS: COZAAR PO SCH (09:23)
[2019-06-21] MEDS ORDERED: G.I. COCKTAIL PO ONE (10:44)
[2019-06-21 12:13] LABS: POTASSIUM 4.3 mmol/L (3.5-5.1)
[2019-06-21 12:14] LABS: CALCIUM 8.9 mg/dL (8.8-10.2); MAGNESIUM 1.9 mg/dL (1.5-2.7)
[2019-06-21] MEDS: HUMULIN R 100 UNIT in NS 100 ML IV SCH ×2 (12:18→20:25)
[2019-06-21] MEDS ORDERED: HUMULIN 70/30 SUBQ SCH (16:00)
--- NOTE | 2019-06-21 18:49 | PROGRESS NOTE ---
DATE: 06/21/2019 Jacqueline Gomez is a 48-year-old, white female diabetic who has end-stage renal disease. Yesterday, I placed a left arm cephalic vein to brachial artery AV fistula. I thought her vein was adequate for AV fistula and she has good flow through this fistula in her arm this morning, using the stethoscope. Her incisions are intact. Stitches are underneath the skin and we will dissolve on their own. She is having problems with high sugars and there is a question whether a heart murmur was detected. She remains hospitalized for glucose control and I will ask that hospitalists place her on their service. Dr. Britt has seen her for hemodialysis. cc: MD Shaquille Sanchez MD
[2019-06-21] MEDS: NORCO-5 PO PRN (19:06)
--- NOTE | 2019-06-21 19:38 | PROGRESS NOTE ---
DATE: 06/21/2019 INTERVAL HISTORY: Ms. Gomez underwent AV fistula of left arm creation yesterday by Dr. Esposito, where she underwent left arm [id number] artery AV fistula, which she tolerated well. Unfortunately, after surgery, despite being on an insulin drip, there was a spike in her blood sugar, and it has been more than 500 since then. I evaluated the patient at bedside. She had concerns about a heart murmur. I told her about her pulmonary hypertension and tricuspid regurgitation and echocardiogram findings and counseled her. I also told her about keeping her here until we take care of her blood sugars and come up with a subcutaneous insulin regimen. She denies new symptoms currently. VITALS: Temperature 98.2, pulse 74, respiratory rate 16, blood pressure 150/76. She is saturating 98% on room air. PHYSICAL EXAMINATION: Vital Signs: As above. General: Does not appear in any acute distress. Morbidly obese. HEENT: Oral cavity is moist. Lungs: Entry bilaterally equal. No wheeze, rhonchi, or crackles. Cardiovascular: S1, S2 normal. There is a faint systolic murmur in the left 2nd intercostal space. No rub or gallop. Extremity: The left arm just had surgery, and she has strips on that. Chest: She has a right-sided chest dialysis catheter. LABS: Suggestive of hyponatremia and hypochloremia, though corrected sodium is normal. She does have elevation of BUN, creatinine. No positive microbiological data. ASSESSMENT AND PLAN: 1. Uncontrolled diabetes mellitus with hyperglycemia. Continue intravenous insulin drip and start patient on Humulin 70/30. Considering her diabetes has been uncontrolled, my goal will be to keep her blood sugar less than 300 and come up with a subcutaneous insulin regimen to achieve that. Follow up with frequent basic metabolic panels. 2. Chronic kidney disease stage 5. Continue home furosemide, calcium acetate and Monday- -Monday hemodialysis. She is status post left arm arteriovenous fistula surgery. 3. Others: Continue losartan, amlodipine and carvedilol for essential hypertension, furosemide for volume overload related to chronic kidney disease. DISPOSITION: Will continue to monitor patient inside the hospital, as she is still on insulin drip. Plan of care discussed with her. All questions have been answered. cc: Shaquille Rodriguez MD
[2019-06-21] MEDS: LIPITOR PO SCH (20:25)
--- NOTE | 2019-06-21 22:47 | NEPHROLOGY PROGRESS NOTE ---
DATE: 06/21/2019 SUBJECTIVE: She had her surgery on Monday without difficulty, but she remains hyperglycemic, so she is still on IV insulin. Otherwise feeling well. She does have some dyspepsia. OBJECTIVE: Vital Signs: Blood pressure 153/76, heart rate 74, respirations 16, afebrile. General: No acute distress. Skin: Warm and dry. HEENT: Conjunctivae are pink. Neck: Neck veins are not distended. Heart: Regular with a soft flow murmur. No gallops. Lungs: Equal. No crackles. Abdomen: Soft, nontender. Bowel sounds present. Extremities: 1+ edema. Palpable thrill along the cephalic vein on the left arm. Steri-Strips on her surgical wounds. IMPRESSION: 1. Chronic kidney disease 5D. Her next planned dialysis treatment is tomorrow. Tolerated well yesterday. Electrolytes/acid base in target. Hemoglobin in target. Blood pressure in target. We will defer hyperglycemia to the hospitalists. cc: MD Shaquille Guillory MD
[2019-06-22 06:11] LABS: BASO# 0.02 X1000 (0.0-0.2); BASO% 0.2 % (0.0-0.8); EOS# 0.05 X1000 (0.0-0.7); EOS% 0.5 % (0.0-10.0); HEMATOCRIT 28.6 % (37.0-47.0); HEMOGLOBIN 9.2 g/dL (12.0-16.0); IMM GRAN# 0.04 X1000 (0.0-0.04); IMM GRAN% 0.4 % (0.0-0.5); LYMPH# 2.28 X1000 (1.2-3.4); LYMPH% 24.8 % (20.5-51.1); MCH 28.6 PG (27-31); MCHC 32.2 g/dL (33-37); MCV 88.8 FL (81-99); MONO# 0.53 X1000 (0.11-0.59); MONO% 5.8 % (1.7-9.3); NEUT# 6.26 X1000 (1.4-6.5); NEUT% 68.3 % (42.2-75.2); PLT 224 X1000 (130-400); RBC 3.22 XMIL (4.2-5.4); RDW 15.2 % (11.5-14.5); WBC 9.18 X1000 (4.8-10.8)
[2019-06-22] MEDS: SYNTHROID PO SCH (06:11)
[2019-06-22] MEDS: HUMULIN 70/30 SUBQ SCH ×2 (06:11→16:09)
[2019-06-22] MEDS ORDERED: INSULIN PEN NEEDLES ONE (06:17)
[2019-06-22 06:40] LABS: CALCIUM 8.7 mg/dL (8.8-10.2); CREATININE 3.4 mg/dL (0.5-0.9); POTASSIUM 3.9 mmol/L (3.5-5.1)
[2019-06-22] MEDS: PHOSLO PO SCH ×3 (08:20→16:54)
[2019-06-22] MEDS: NORVASC PO SCH (08:20)
[2019-06-22] MEDS: NEPHRO-VITE PO SCH (08:20)
[2019-06-22] MEDS: LASIX PO SCH ×2 (08:20→20:56)
[2019-06-22] MEDS: COZAAR PO SCH (08:20)
[2019-06-22] MEDS: COREG PO SCH ×2 (08:21→20:56)
[2019-06-22] MEDS ORDERED: NS 2,000 ML MISC PRN (08:32)
[2019-06-22] MEDS ORDERED: HEPARIN IV PRN (08:32)
[2019-06-22] MEDS: NORCO-5 PO PRN ×2 (08:43→18:56)
[2019-06-22] MEDS: HUMALOG SUBQ SCH ×3 (12:57→20:57)
--- NOTE | 2019-06-22 14:45 | PROGRESS NOTE ---
DATE: 06/22/2019 INTERVAL HISTORY: No acute events overnight. Her blood sugars were well controlled on insulin drip yesterday. I saw her in dialysis. She is denying new complaints. We discussed about slowly switching the insulin drip off and keeping her on subcutaneous insulin. I answered all of her questions. VITALS: Temperature 97.6 degrees, pulse 68, respiratory rate 15, blood pressure 140/70, saturating 97% on 2 L nasal cannula. PHYSICAL EXAMINATION: Morbidly obese, not in acute distress.HEENT: Oral cavity is moist. Lungs: Air entry bilaterally equal. No wheeze, rhonchi, crackles. Cardiovascular: S1, S2 normal. Faint systolic murmur, left 2nd intercostal space. No rub or gallop. Abdomen: Obese, soft, nontender. She has left arm AV fistula surgery and has strips on that. Right-sided chest dialysis catheter. She is alert and oriented x3. LABS: CBC is largely unremarkable. BMP suggestive of acceptable range of potassium. Microbiology no positive data. No positive imaging data. ASSESSMENT AND PLAN: 1. Uncontrolled diabetes mellitus with hyperglycemia. Stop intravenous insulin drip and start patient on every 4 hours blood sugar checks and subcutaneous insulin lispro as well as keep her on home Humulin 70/30. Follow up frequent blood checks. 2. Chronic kidney disease stage 5. Continue home furosemide, calcium acetate. Monday, , Monday hemodialysis, status post left AV fistula surgery. 3. Others. Continue losartan, amlodipine and carvedilol for essential hypertension; furosemide for ESRD related volume overload. 4. Disposition. If her blood sugars are well controlled my plan is to discharge her home tomorrow. Plan of care discussed with her. All questions have been answered. cc: Shaquille Rodriguez MD
--- NOTE | 2019-06-22 15:36 | NEPHROLOGY PROGRESS NOTE ---
DATE: 06/22/2019 SUBJECTIVE: She is currently on dialysis. She is having more arm pain today. She is still on IV insulin. Ate her breakfast. OBJECTIVE: Vital Signs: Blood pressure 135/75, heart rate 68, respirations 15, afebrile. General: No acute distress. Skin: Warm and dry. Conjunctivae are pink. Neck: Neck veins are not distended. Heart: Regular. No gallops. Lungs: Equal. No crackles. Abdomen: Soft, nontender. Bowel sounds present. Extremities: No edema clubbing or cyanosis. IMPRESSION: 1. Chronic kidney disease 5D. Continue routine hemodialysis. A 3K bath today. Minimal ultrafiltration. 2. Left arm pain. Symptomatic management. 3. Hyperglycemia. Improving. 4. Hypertension, acceptable. cc: MD Shaquille Guillory MD
[2019-06-22] MEDS: LIPITOR PO SCH (20:56)
[2019-06-23] MEDS: HUMALOG SUBQ SCH ×3 (01:28→09:28)
[2019-06-23] MEDS: SYNTHROID PO SCH (06:01)
[2019-06-23] MEDS: HUMULIN 70/30 SUBQ SCH (06:01)
[2019-06-23 07:55] VITALS: BP 148/80
[2019-06-23] MEDS: NORVASC PO SCH (08:59)
[2019-06-23] MEDS: NORCO-5 PO PRN (08:59)
[2019-06-23] MEDS: COZAAR PO SCH (08:59)
[2019-06-23] MEDS: PHOSLO PO SCH (08:59)
[2019-06-23] MEDS: LASIX PO SCH (09:00)
[2019-06-23] MEDS: NEPHRO-VITE PO SCH (09:00)
[2019-06-23] MEDS: COREG PO SCH (09:00)
--- NOTE | 2019-06-23 12:45 | DISCHARGE SUMMARY ---
ADMISSION DATE: 06/19/2019 DISCHARGE DATE: 06/23/2019 DISCHARGE DISPOSITION: Home. DISCHARGE CONDITION: Hemodynamically stable. Her blood sugars are reasonably well controlled on subcutaneous insulin regimen. She was advised to check blood sugars regularly, and have followup with her regular doctor about increasing the insulin dose. DISCHARGE DIAGNOSES: 1. Uncontrolled insulin-dependent diabetes mellitus type 2. 2. Chronic kidney disease stage 5, on hemodialysis. 3. Morbid obesity. OTHER DIAGNOSES: 1. Chronic kidney disease stage 5, on hemodialysis through right-sided chest port. 2. Status post left arm arteriovenous fistula by Vascular Surgery on 06/20/2019. 3. Essential hypertension. 4. Volume overload related to chronic kidney disease stage 5. DISCHARGE MEDICATIONS: Atorvastatin 40 mg at nighttime, amlodipine 10 mg daily, carvedilol 12.5 mg b.i.d., losartan 100 mg daily, folic acid, multivitamin 0.8 mg daily, furosemide 120 mg b.i.d., levothyroxine 100 mcg daily, insulin Humulin 70/30, 75 units subcutaneously b.i.d. at 7 a.m. and 4 p.m. (60-day supply was prescribed), Andrews 5 one tablet every 6 hours for pain (15 tablets have been prescribed), calcium acetate 667 mg t.i.d. CONSULTATIONS DURING HOSPITAL ADMISSION: Dr. Britt for Nephrology; Dr. Esposito for Vascular Surgery. PHYSICAL EXAMINATION: Vital Signs: At the time of discharge, temperature 98.6 degrees, pulse 72, respiratory rate 17, blood pressure 148/80, saturating 98% on room air. General: Morbidly obese, not in any acute distress. HEENT: Oral cavity is moist. Lungs: Air entry bilaterally equal. No wheeze, rhonchi, crackles. She has a right-sided chest dialysis catheter. Cardiovascular: S1, S2 normal. Mild systolic murmur in tricuspid area without any radiation. No rub or gallop. Abdomen: Obese, soft, nontender. Extremities: Mild bilateral lower extremity edema. Left arm vascular surgery AV fistula creation site appears noninflamed and mildly tender without any pus. Neurologic: She is alert and oriented x3. LABORATORY DATA: Labs at the time of admission and discharge show WBC 9.1, hemoglobin 9.2, platelets 224,000. Sodium 133, chloride 97, BUN 44, creatinine 3.4, blood sugar 153. Her TSH was 0.04. Serum test was negative. IMAGING: Significant imaging during hospital admission shows chest x-ray on admission had double- lumen catheter in right internal jugular with its tip just above the right atrium. The lungs were clear. The heart and pulmonary vascularity was within normal limits. Vascular mapping had sufficient left upper extremity cephalic vein for AV fistula. Electrocardiogram on admission showed sinus rhythm with first-degree AV block. HOSPITAL COURSE SUMMARY: Ms. Gomez is a 48-year-old lady with past medical history of chronic kidney disease stage 5, who has been on hemodialysis since 03/2019, with also history of 20 years of diabetes mellitus type 2, diabetic neuropathy, hypothyroidism, and morbid obesity, who was supposed to get outpatient left arm AV fistula creation surgery, where in preoperative, she was found to have blood sugar more than 500, so the surgery was postponed and the hospitalist team was requested for management. On evaluation, the patient's blood sugars were actually found to be 800, though on ABG she did not have acidosis with pH of 7.4, and her bicarbonate was 22. She did have a slight anion gap of 15, so she was started on intravenous insulin drip, and was admitted in the hospital. With intravenous insulin drip, her blood sugars came under better control. Her drip was according to DKA protocol, and the next day, she was able to undergo surgery. Postoperatively, she was kept on insulin drip for 24 hours, and as her sugars were approaching acceptable range, her insulin drip was stopped, and she was switched to subcutaneous insulin. Her blood sugars remained reasonable on subcutaneous insulin regimen, and she was deemed appropriate for discharge on NPH 70/30. She was advised on weight reduction and healthy diabetic diet and outpatient regular physician followup for further dose adjustment. TIME SPENT: More than 30 minutes were spent in discharging the patient. All of her questions were answered. cc: Shaquille Rodriguez MD
== END 2019-06-23 10:39 | disposition home or self-care (01) | DRG 628 ==
LOC: OPS 06:57 → 2N 06:57 → PAT 06:57 → MERGE 10:30 → OBSVTOIN 13:48
PROVIDERS: ADMIT Internal Medicine; ATTEND Internal Medicine
PROC: MS.CXOR (2019-06-19 10:30)

== ENCOUNTER 2019-07-10 21:17 | Inpatient (IN) ==
[2019-07-10] MEDS ORDERED: TAZIDIME 2 GM in NS 100 ML IV ONE (21:31)
[2019-07-10] MEDS ORDERED: VANCOMYCIN 1 GM/NS 1 GM/250 ML IVPB IV ONE (21:31)
[2019-07-10] MEDS ORDERED: ZOFRAN IV ONE (21:32)
[2019-07-10] MEDS: NS 500 ML IV ONE ×2 (21:32→23:02)
[2019-07-10] MEDS ORDERED: MORPHINE IV ONE (21:32)
[2019-07-10 21:52] LABS: BASO# 0.02 X1000 (0.0-0.2); BASO% 0.2 % (0.0-0.8); EOS# 0.24 X1000 (0.0-0.7); HEMOGLOBIN 13.2 g/dL (12.0-16.0); IMM GRAN# 0.04 X1000 (0.0-0.04); IMM GRAN% 0.3 % (0.0-0.5); LYMPH# 0.46 X1000 (1.2-3.4); LYMPH% 3.9 % (20.5-51.1); MCH 28.3 PG (27-31); MCHC 32.2 g/dL (33-37); MCV 87.8 FL (81-99); MONO# 0.55 X1000 (0.11-0.59); MONO% 4.7 % (1.7-9.3); MPV 11.5 FL (7.4-10.4); NEUT# 10.46 X1000 (1.4-6.5); NEUT% 88.9 % (42.2-75.2); PLT 249 X1000 (130-400); RBC 4.67 XMIL (4.2-5.4); RDW 14.9 % (11.5-14.5); WBC 11.77 X1000 (4.8-10.8)
[2019-07-10 23:01] LABS: ALB/GLOB RATIO 0.8; ALBUMIN 4.2 g/dL (3.5-5.0); CALCIUM 9.7 mg/dL (8.8-10.2); CREATININE 4.3 mg/dL (0.5-0.9); TOTAL BILIRUBIN 0.42 mg/dL (0.20-1.00); TOTAL PROTEIN 9.2 g/dL (6.3-8.3)
[2019-07-10] MEDS: NS 1,000 ML IV ONE ×2 (23:03→23:05)
--- NOTE | 2019-07-11 02:44 | PROVIDER DOCUMENTATION ---
This chart was entered by Dequan Schmidt Scribe, acting as scribe for Migue Webb MD. HPI-Abdominal Pain/GI Problem - General Chief Complaint: N/V/D Stated Complaint: nausea/vomiting Time Seen by Provider: 07/10/19 21:30 Source: patient Allergies/Adverse Reactions: Patient Allergies Allergy/AdvReac Type Severity Reaction Status Date / Time Sulfa (Sulfonamide AdvReac NAUSEA/VOMI Verified 07/10/19 21:44 Antibiotics) TING Home Medications: Home Medication List Medication Instructions Recorded Confirmed Last Taken Type ATORVAstatin [Lipitor] 40 mg PO QHS 02/14/19 07/10/19 07/09/19 History Levothyroxine [Synthroid] 100 microgm PO DAILY 02/14/19 07/10/19 07/10/19 History Losartan [Cozaar] 100 mg PO DAILY 02/14/19 07/10/19 07/10/19 History Calcium Acetate [Phoslo] 667 mg PO TID CC #240 tab 04/08/19 07/10/19 07/10/19 Rx Amlodipine Besylate 10 mg PO DAILY 06/17/19 07/10/19 06/19/19 06:30 History Carvedilol 12.5 mg PO BID 06/17/19 07/10/19 07/10/19 History Folic Acid/Vit B Complex and C 0.8 mg PO DAILY 06/17/19 07/10/19 07/10/19 History [Dialyvite 800 Tablet] Furosemide 3 tab PO BID 06/17/19 07/10/19 07/10/19 History Hydrocodone/APAP 5 mg/325 mg 1 ea PO Q6H PRN PRN #15 tab 06/23/19 Unknown Rx [[place]-5] Insulin Humulin 70/30 [Humulin 75 unit SUBQ BID@0700,1600 #60 06/23/19 07/10/19 07/10/19 Rx 70/30] [email or web address] Glimepiride 1 tab PO DAILY 07/10/19 07/10/19 07/10/19 History - History of Present Illness-ABD Nature of Presenting Problems: Pt is a 48 yof who presents to the ED with a CC of nausea, vomiting, diarrhea. Pt reports her symptoms began at approximately 1800 and states they have been constant. Pt also complains of feeling lightheaded, dizzy, and having chills. Severity in ED: reports: mild Onset/Duration: reports: 4-6 hours ago Timing: reports: still present Associated Symptoms: reports: diarrhea, nausea, vomiting Bruising or Bleeding Gums?: No Similar Symptoms Previously?: No Recently seen or treated by another doctor?: No Review of Systems - Adult - REVIEW OF SYSTEMS - ADULT Constitutional: reports: see HPI Eyes: reports: no symptoms reported Ears, Nose, Mouth & Throat: reports: no symptoms reported Cardiovascular: reports: no symptoms reported Respiratory: reports: no symptoms reported Gastrointestinal: reports: see HPI, diarrhea, nausea, vomiting Genitourinary: reports: no symptoms reported Musculoskeletal: reports: no symptoms reported Integumentary: reports: no symptoms reported Neurological: reports: no symptoms reported Psychiatric: reports: no symptoms reported Endocrine: reports: no symptoms reported Hematologic/Lymphatic: reports: no symptoms reported Allergic/Immunologic: reports: no symptoms reported All Other Systems: Reviewed and Negative Past History - Adult - PAST MEDICAL HISTORY-ADULT Review of Records: reports: Old Records Reviewed, Nursing Assessment Review, Medications Reviewed, Social history reviewed & non-contributory. Major Childhood Illnesses: reports: denies history Cardiovascular: reports: CHF, HTN, hyperlipidemia Respiratory: reports: denies history Gastrointestinal: reports: GERD Obstetrical/Gynecological: reports: denies history Genitourinary: reports: kidney disease (lesion to L kidney) Musculoskeletal: reports: denies history, intervertebral disc disease, other (spinal stenosis) Neurological: reports: denies history Endocrine/Immune: reports: Diabetes, other (neuropathy) Other Conditions: reports: denies history, MRSA - PRIOR SURGERIES/PROCEDURES Surgical/Procedure History: reports: BTL, , orthopedic (extremity), cholecystectomy, back/neck - IMMUNIZATION STATUS Childhood Immunizations: UTD, See Nurse Assessment Flu Vaccine: See Nurse Assessment - FAMILY HISTORY Family History: HTN, reviewed, not pertinent - SOCIAL HISTORY Smoking: denies, non-smoker Substance Use: none/never, denies Alcohol Use Frequency: never Physical Exam-General - PHYSICAL EXAM-ADULT Initial Vital Signs Reviewed: Yes - CONSTITUTIONAL General Appearance: alert, mild distress - EYES Eyes: PERRL/EOMI - HEAD, EARS, NOSE, MOUTH & THROAT HENMT: moist mucous membranes - NECK Neck: non-tender, full range of motion - RESPIRATORY Respiratory: chest non-tender, lungs clear, normal breath sounds, no pleuratic chest pain, no respiratory distress, no accessory muscle use - CARDIOVASCULAR Cardiovascular: normal peripheral pulses, regular rate, rhythm, no edema, no gallop, no JVD, no murmur - MUSCULOSKELETAL Extremity: normal range of motion, non-tender - SKIN Integumentary: normal color, warm/dry - NEUROLOGIC Neurologic: grossly normal, no motor/sensory deficits - PSYCHIATRIC Psych/Mental Status: normal mood/affect, normal thought content, normal thought process, oriented x 3 Progress - PLAN OF CARE/RESULTS Progress/Plan/Lab Results: Orders Category Date Time Status BLOOD CULTURE [BLDCUL] Stat Lab 07/10/19 21:31 Uncollected CBC WITH ELECTRONIC DIFF [HEME] Stat Lab 07/10/19 21:31 Uncollected COMPREHENSIVE METABOLIC PANEL [CHEM] Stat Lab 07/10/19 21:31 Uncollected LACTATE, PLASMA [CHEM] Stat Lab 07/10/19 21:31 Uncollected LIPASE [CHEM] Stat Lab 07/10/19 21:31 Uncollected URINALYSIS W/POSS RFLX CULT [URINALYSIS] Stat Lab 07/10/19 21:31 Uncollected URINE CULTURE [RM] Stat Lab 07/10/19 21:32 Uncollected 0.9% Sodium Chloride Inj [Ns] 500 ml Med 07/10/19 21:32 Active IV 999 mls/hr CefTAZIDIME [Tazidime] 2 gm Med 07/10/19 21:31 Active 0.9% Sodium Chloride Inj [Ns] 100 ml IV NOW Morphine Med 07/10/19 21:32 Discontinued 4 mg IV NOW ONE Ondansetron [Zofran] Med 07/10/19 21:32 Discontinued 4 mg IV NOW ONE Vancomycin 1 gm/Ns Med 07/10/19 21:31 Active 1 gm in 250 ml IV NOW Result Diagrams: 07/10/19 21:39 07/10/19 21:39 Departure - Departure Date of Disposition Decision: 07/11/19 Time of Disposition Decision: 02:43 DIAGNOSIS: Fever Qualifiers: Fever type: unspecified Qualified Code(s): R50.9 - Fever, unspecified Nausea and vomiting Qualifiers: Vomiting type: unspecified Vomiting Intractability: non-intractable Qualified Code(s): R11.2 - Nausea with vomiting, unspecified Disposition: ADMITTED INPATIENT 09 Certified Medical Emergency: Emergent Condition: Stable Additional Freetext Instructions: ED Follow Up Instructions: You have been treated by a care provider in the Emergency Department. These instructions are being provided to you so you can have an understanding of how to care for yourself upon discharge. Upon discharge from the Emergency Department, you are responsible for making arrangements for follow-up care by a physician of your choice. Take all prescribed medications as directed. Return to the Emergency Department immediately for any new or worsening symptoms. You may call the Physician Referral phone number at [phone] to obtain a list of Physicians who are taking new patients. - Critical Care Note This patient required my direct & personal management of CC.: No Attestation - Physician/ JOSE ALBERTO Attestation Patient care was provided by Advanced Practice Provider:: No The physician spent face to face time with patient:: Yes Advanced Practice Provider documentation review:: Supervising physician onsite and consulted in the evaluation and care of this patient. The physician did have a face to face encounter with the patient. This chart was documented by the indicated scribe, (Dequan Schmidt, Sudha) and accurately reflects the services I performed and decisions made by me, Migue Webb MD, as attested by the provider's signature.
[2019-07-11] MEDS ORDERED: NS 1,000 ML IV SCH (06:04)
[2019-07-11] MEDS ORDERED: TYLENOL PO PRN (06:04)
[2019-07-11] MEDS ORDERED: HEPARIN IV PRN (06:10)
[2019-07-11] MEDS ORDERED: NS 2,000 ML MISC PRN (06:10)
[2019-07-11] MEDS ORDERED: TIGHT: 0.2 ML/HR FOR DIALYSIS MISC PRN (06:10)
[2019-07-11] MEDS: HEPARIN SUBQ SCH ×2 (06:37→18:05)
[2019-07-11] MEDS: SYNTHROID PO SCH (06:37)
[2019-07-11] MEDS: FLAGYL 500 MG/NS 500 MG/100 ML IVPB IV SCH ×3 (06:38→18:05)
--- NOTE | 2019-07-11 06:39 | HISTORY AND PHYSICAL ---
PHYSICIANS: Dr. Britt and Dr. Euceda. REASON FOR ADMISSION: One-day history of nonbloody diarrhea. HISTORY OF PRESENT ILLNESS: Patient is a 48-year-old woman with past medical history of congestive heart failure, type unknown, hypertension, end-stage kidney disease with type 2 diabetes, last A1c 10.4, hyperlipidemia, hypothyroidism, who comes in today complaining of a 12- hour history of persistent watery diarrhea, which is nonbloody, non-mucoid. Denies any contact with anybody with diarrheal illness. Denies recent use of antibiotics. No recent history of travel. She also complains of persistent vomiting and nausea during the same course of time, but no hematemesis or coffee grounds noted. No fever, but admits to having infrequent chills. Called Dr. Britt, who told her to come to the ER to get checked. The patient complains of lower abdominal pain which is intermittently crampy. No significant aggravating or relieving factors. No change in genitourinary output. Patient complains of feeling generalized weakness and postural lightheadedness. No cardiorespiratory complaints. No focal neurological complaints. No polyuria, polydipsia. No new onset rash or arthralgia. REVIEW OF SYSTEMS: Twelve system review was done. Positive findings as per HPI. ALLERGIES: Sulfa. HOME MEDICATIONS: 1. Coreg 12.5 mg b.i.d. 2. Losartan 10 100 mg daily. 3. Atorvastatin 40 mg at bedtime. 4. Norvasc 10 mg daily. 5. Amaryl 4 mg daily. 6. Furosemide 120 mg daily. 7. tablets once a day. 8. Insulin 70/30, 75 units b.i.d. 9. PhosLo 667 mg t.i.d. SURGICAL HISTORY: He has had cholecystectomy, , back and neck surgery, tubal ligation, AV fistula creation located in the left upper extremity. FAMILY HISTORY: Notable for stomach cancer and heart disease in parents. No diabetes or kidney disease in other first-degree relatives. SOCIAL HISTORY: Does not smoke, drink, or use illicit drugs. LABORATORY WORK: White count 11,000, hemoglobin and hematocrit 13 and 41, platelets 249,000, with 89% neutrophils. BUN 60, creatinine 4.3. Bicarb 17. Glucose 114, AST 97, ALT 51, lipase mildly elevated at 63, lactate 1.8. IMAGING STUDIES: I.e. CT scan and pelvis is ordered and pending. PHYSICAL EXAMINATION: VITAL SIGNS: Blood pressure 147/84, heart rate 90, respiratory rate 18, temperature is 98.1, O2 saturation 98 percent on room air. HEENT: Head is normocephalic, atraumatic. Eyes, THOR, EOMI. She is anicteric, not pale. ENT: Shows moderate xerostomia. No oropharyngeal exudates or erythema. NECK: Supple. No JVD or carotid bruit. No thyromegaly. CHEST: Clear to auscultation. Good air entry both lung conner. CARDIOVASCULAR: First and 2nd heart sounds heard. No gallops, murmurs, rubs. Rhythm is regular. ABDOMEN: Protuberant, soft with lower abdominal tenderness, but no rebound or guarding. Bowel sounds are hyperactive. RECTAL: Deferred at this time. EXTREMITIES: Patient has trace lower extremity edema. Good distal pulse volumes, regular, symmetrical. NEUROLOGICAL: No gross focal deficits. SKIN: Intact. No breakdown, lesion, erythema. Patient has a left AV fistula which appears to be normal. There are areas of erythema. She also has a dialysis catheter in the right pectoral area and there is no evidence of tenderness, erythema, or fluctuance around the site. MUSCULOSKELETAL: Grossly normal. ASSESSMENT: 1. Gastroenteritis, rule out Clostridium difficile versus norovirus infection. 2. Possible bacteremia. CT scan pending, we are trying to rule out colitis. 3. End-stage kidney disease. 4. Type 2 diabetes, uncontrolled. 5. Hypertension. 6. Congestive heart failure, type unknown. 7. Hypothyroidism. PLAN: Patient will be covered preferably with Flagyl and Fortaz for now. The patient will be cautiously hydrated due to the fact she has end-stage kidney disease, and CHF. I's and O's will need to match to prevent fluid overload. Stool studies have been ordered and need to be followed. Depending on CT scan findings, patient can be switched to either Rocephin or Levaquin along with Flagyl. Dr. Britt is aware of patient and will follow up patient tomorrow for her dialysis, which occurs Monday, , Monday. cc: MD Ashley Doan MD Reginald D. Gladish, MD [facility]
--- NOTE | 2019-07-11 07:42 | Diag Imaging Result Doc PS360 ---
EXAM: CT ABDOMEN/PELVIS W/O CONTRAST 07/11/2019 HISTORY: abd pain TECHNIQUE: This exam was performed using automated exposure control, adjustment of mA or kV according to patient size, and/or use of iterative reconstruction technique. COMMENT: There is an irregularly marginated opacity near the left hilum in the lingula on the first image which was not included on the previous examination of 04/04/2019. The opacity which was previously present in the posterior medial right lower lobe has apparently resolved. The patchy opacities which were present in the left lower lobe are also resolved. There are calcified granulomata in the spleen. There has been cholecystectomy. The adrenal glands are not enlarged. There is no evidence of abdominal aortic aneurysm. There is dense calcification in the inferior mesenteric artery. There are some calcifications present in both kidneys which may be vascular. There is no evidence of hydronephrosis. There is no evidence of bowel obstruction. There is fluid throughout much of the colon and small bowel loops including the rectum. The possibility of mild enterocolitis is suggested. The appendix is not distended or inflamed in appearance. There is no evidence of gross abnormality in the liver in the absence of contrast. There are few scattered colonic diverticula. There is no evidence of free fluid in the pelvis. There are no masses in the pelvis. The urinary bladder is not distended. There is a bone island in the intertrochanteric region of the left femur. There are degenerative disc changes with large osteophytes and/or calcified herniated discs at multiple levels in the lumbar spine including the L2-3, L3-4, and L4-5 levels. There is apparent spinal stenosis at all these levels which was also present at the time the previous study. There is sclerosis and loss of height of the L1 vertebral body which was also the case previously. IMPRESSION: Small calcifications in both kidneys which may be vascular. The possibility of tiny calculi cannot be entirely excluded however. No evidence of ureteral lithiasis or obstructive uropathy is present. Fluid in the colon and small bowel consistent with enterocolitis. Multilevel spinal stenosis. Electronically signed by Trevon Norris 07/11/2019 7:40 AM
[2019-07-11] MEDS ORDERED: INSULIN PEN NEEDLES ONE (08:30)
[2019-07-11 08:37] LABS: URINE SOURCE CLEAN CATCH
[2019-07-11 08:45] LABS: BILIRUBIN URINE SMALL (NEGATIVE); BLOOD URINE NEGATIVE (NEGATIVE); COLOR YELLOW; GLUCOSE URINE 100 mg/dL (NEGATIVE); KETONE URINE NEGATIVE (NEGATIVE); LEUKOCYTES URINE NEGATIVE (NEGATIVE); NITRITE URINE NEGATIVE (NEGATIVE); PH URINE 5.5; PROTEIN URINE 300 mg/dL (NEGATIVE); SP GRAVITY URINE 1.019; TURBIDITY URINE HAZY (CLEAR); UR EPITHELIAL CELLS <10 /HPF (<10); URINE BACTERIA NEGATIVE /HPF; URINE RBC <10 /HPF (<10); URINE WBC <10 /HPF (<10); UROBILINOGEN URINE NORMAL (NORMAL)
[2019-07-11 08:52] LABS: URINE YEAST PRESENT
[2019-07-11 09:52] LABS: BASO# 0.01 X1000 (0.0-0.2); BASO% 0.1 % (0.0-0.8); EOS# 0.05 X1000 (0.0-0.7); EOS% 0.6 % (0.0-10.0); HEMATOCRIT 33.8 % (37.0-47.0); HEMOGLOBIN 10.8 g/dL (12.0-16.0); LYMPH% 4.8 % (20.5-51.1); MCV 90.9 FL (81-99); MONO% 1.2 % (1.7-9.3); MPV 10.5 FL (7.4-10.4); NEUT# 7.69 X1000 (1.4-6.5); NEUT% 93.3 % (42.2-75.2); PLT 217 X1000 (130-400); RBC 3.72 XMIL (4.2-5.4); RDW 15.2 % (11.5-14.5); WBC 8.25 X1000 (4.8-10.8)
[2019-07-11] MEDS: HUMULIN 70/30 SUBQ SCH ×2 (10:03→18:06)
[2019-07-11 10:11] LABS: BANDS 4 % (0-1); LARGE PLATELETS 2+; LYMPHS 6 % (21-51); MONO 4 % (1-9); SEGS 86 % (42-75)
[2019-07-11 10:26] LABS: CALCIUM 9.1 mg/dL (8.8-10.2); CREATININE 4.8 mg/dL (0.5-0.9); POTASSIUM 4.8 mmol/L (3.5-5.1)
[2019-07-11] MEDS ORDERED: LEVAQUIN 500 MG/D5W 500 MG/100 ML IVPB IV STA ×2 (14:13→21:17)
[2019-07-11] MEDS: PHOSLO PO SCH ×3 (15:31→18:05)
[2019-07-11] MEDS: NORVASC PO SCH (18:04)
[2019-07-11] MEDS: COREG PO SCH ×2 (18:04→21:16)
[2019-07-11] MEDS: NEPHRO-VITE PO SCH (18:04)
--- NOTE | 2019-07-11 20:39 | NEPHROLOGY CONSULTATION ---
DATE: 07/11/2019 REASON FOR ADMISSION: Abdominal pain with nausea, vomiting and diarrhea. The patient had spoken to Dr. Britt yesterday evening. She has a tunnel dialysis catheter to the right chest wall. Due to her symptoms with chills, no fever, it was felt that she needed to come to the emergency room to be evaluated. She does complain of lower abdominal pain with intermittent cramping. States that she has had watery diarrhea stools for approximately 2 to 3 days, worsening with the abdominal cramping within 24 hours of her admission. She has had generalized weakness, postural lightheadedness, hypotension at home. In the ER, it was noted that she had stable blood pressure of 140/84 and then down to 107/68 this a.m. She has not had a diarrhea stool in 6 hours. Saturating well on room air. Blood cultures have been ordered. Urine culture has been ordered. At this time, she denies chest pain. No increased work of breathing. No lower extremity swelling, abdominal tenderness. No current nausea or vomiting. Again, only 1 diarrhea stool yesterday evening after she had gotten into the ER. PAST MEDICAL HISTORY: End-stage renal disease with hemodialysis on Monday, , Monday; hypertension; hyperlipidemia; obesity; insulin-dependent diabetes mellitus type 2; CHF; history of MRSA with infection, hypothyroidism, anemia of chronic disease and osteodystrophy of chronic disease. PREVIOUS SURGICAL HISTORY: Dialysis tunnel catheter to the right chest wall, toe amputation on the right, cholecystectomy, peritoneal dialysis catheter in the past, tubal ligation, eye surgery, and a section. SOCIAL HISTORY: She lives with her family. Denies tobacco, alcohol or illicit drug use. FAMILY HISTORY: Is positive for WI. Negative for kidney disease. ALLERGIES: Listed as sulfa. HOME MEDICATIONS: Have yet to be reconciled. REVIEW OF SYSTEMS: Times 10 with pertinent positives listed above in the HPI. PHYSICAL EXAM: Temperature 98.9 degrees, blood pressure 130/68, heart rate 93, respirations are 20. She is on room air. Last recorded saturation 97%. There is nothing recorded in or out during the night. LABORATORY DATA: Sodium 132, potassium 4.8, chloride 92, CO2 19, BUN 60, creatinine 4.8, glucose 308. Her anion gap is 21, her calcium is 9.1, phosphorus of 8. Her white count 8.25, hemoglobin 10.8, hematocrit 33.8 with a platelet count of 217,000. Plasma lactate is 1.8. IMAGING: Patient had an abdominal and pelvis CT without contrast. Impression shows small calcifications of both kidneys. Possibility of tiny calculi not excluded. No urolithiasis or obstructive uropathy. Colon and small bowel consistent with enteric colitis. She does have multilevel spinal stenosis. PHYSICAL EXAMINATION: General: This is a 48-year-old, white female. She is resting quietly in bed. She appears in no acute distress. Skin: Warm and dry. HEENT: Normocephalic, atraumatic. Conjunctiva is pale pink. She has THOR. Mucous membranes are dry. Neck: Supple. Trachea midline. No evidence of JVD. Cardiovascular: She is regular rate and rhythm. S4 is present. Lungs: Clear to auscultation bilaterally. Equal excursion on room air. Abdomen: Soft, slightly distended, nontender. Positive bowel sounds. Genitourinary: Not inspected. Patient does void with dialysis assist. Extremities: The patient has a left arm cephalic to brachial AV fistula palpable with thrill. Extremities no edema, no clubbing or cyanosis. Neurological: She is alert and oriented x3. ASSESSMENT AND PLAN: 1. Chronic kidney disease stage VD. This is patient's routine dialysis treatment day. We will place her on a 2 K bath, dialyze her for 3.5 hours and attempt to pull patient to her dry weight. We have requested that the patient stand for her weight this a.m. and we will plan for resuscitation in fluid volume if she is below her dry weight. 2. Electrolytes and acid-base balance with correction on dialysis. 3. Anemia. This is low but stable. Hemoglobin of 10.8. 4. Diarrhea with colitis. She has a negative Clostridium difficile results. 5. Abdominal discomfort. This has improved during her hospital stay. I would like to thank you for allowing us to follow with this patient. Dictated by CHRISTIAN Doyle for Osbaldo Britt MD Face to face encounter, data reviewed, discussed with Jl Velazquez on 07/11/19. I agree with the above assessment and plan of care. cc: CHRISTIAN Doyle MD [facility]
[2019-07-11] MEDS: HUMULIN R SUBQ SCH (21:14)
[2019-07-11] MEDS: LIPITOR PO SCH (21:17)
[2019-07-12] MEDS: FLAGYL 500 MG/NS 500 MG/100 ML IVPB IV SCH ×2 (01:33→05:59)
[2019-07-12 05:21] LABS: BASO# 0.01 X1000 (0.0-0.2); BASO% 0.3 % (0.0-0.8); EOS# 0.32 X1000 (0.0-0.7); EOS% 8.6 % (0.0-10.0); HEMATOCRIT 33.4 % (37.0-47.0); HEMOGLOBIN 10.5 g/dL (12.0-16.0); IMM GRAN# 0.02 X1000 (0.0-0.04); IMM GRAN% 0.5 % (0.0-0.5); LYMPH# 0.94 X1000 (1.2-3.4); LYMPH% 25.3 % (20.5-51.1); MCH 28.8 PG (27-31); MCHC 31.4 g/dL (33-37); MCV 91.5 FL (81-99); MONO# 0.34 X1000 (0.11-0.59); MONO% 9.1 % (1.7-9.3); MPV 10.6 FL (7.4-10.4); NEUT# 2.09 X1000 (1.4-6.5); NEUT% 56.2 % (42.2-75.2); PLT 199 X1000 (130-400); RBC 3.65 XMIL (4.2-5.4); RDW 15.1 % (11.5-14.5); WBC 3.72 X1000 (4.8-10.8)
[2019-07-12] MEDS: HEPARIN SUBQ SCH ×2 (05:59→17:12)
[2019-07-12] MEDS: HUMULIN 70/30 SUBQ SCH ×2 (05:59→16:34)
[2019-07-12] MEDS: HUMULIN R SUBQ SCH ×4 (06:00→21:01)
[2019-07-12 06:04] LABS: CALCIUM 8.7 mg/dL (8.8-10.2); CREATININE 4.1 mg/dL (0.5-0.9); MAGNESIUM 1.8 mg/dL (1.5-2.7); POTASSIUM 3.9 mmol/L (3.5-5.1)
[2019-07-12] MEDS: SYNTHROID PO SCH (06:06)
[2019-07-12] MEDS: COZAAR PO SCH (08:37)
[2019-07-12] MEDS: PHOSLO PO SCH ×3 (08:37→16:34)
[2019-07-12] MEDS: NEPHRO-VITE PO SCH (08:37)
[2019-07-12] MEDS: COREG PO SCH ×2 (08:37→21:05)
[2019-07-12] MEDS: LASIX PO SCH ×2 (08:37→21:07)
[2019-07-12] MEDS: NORVASC PO SCH (08:37)
[2019-07-12] MEDS: ZOFRAN IV PRN (08:37)
[2019-07-12] MEDS: CULTURELLE PO SCH ×2 (10:21→21:05)
--- NOTE | 2019-07-12 11:01 | PROGRESS NOTE ---
DATE: 07/12/2019 SUBJECTIVE: This patient is still complaining of abdominal discomfort, diarrhea, and nausea, even though she has been getting antibiotics already. Clostridium difficile toxic x1 has been negative, I will repeat that. She denies any previous treatment with antibiotics at least for the past month. Vital signs are stable. She does not look dehydrated. She had her dialysis yesterday. She describes her diarrhea as explosive to the point that she cannot make it to the bathroom, watery. I will start this patient on Culturelle and I will wait for Gastroenterology recommendations. OBJECTIVE: Vital Signs: Temperature 98, pulse 83, respiratory rate 16, blood pressure 132/68, oxygen saturation 100% on room air. HEENT: Head normocephalic. No trauma. PERRLA. Neck: Supple. No JVD. No masses. Central trachea. Chest: Clear to auscultation. No wheezing or rales. Abdomen: Protuberant, generalized tenderness to palpation but no rebound. Bowel sounds are hyperactive. Extremities: Trace edema, no clubbing, no cyanosis. Neurological examination: This patient is alert. She is oriented x3. No focal deficits. LABORATORY: WBC 3.7, hemoglobin 1.5, hematocrit 33.4, platelet 199. Sodium 135, potassium 3.9, chloride 95, bicarbonate 23, BUN 37, creatinine 4.1, glucose 195, calcium 8.7, magnesium 1.8. ASSESSMENT AND PLAN: 1. Gastroenteritis. She does have moderate amount of WBC in the stool, positive Hemoccult, which could be related to inflammation. She is not having fever but she is still having diarrhea and nausea even though she has been placed on treatment. CT of the abdomen showed fluid in the colon and small bowel consistent with enterocolitis. Will continue with the same management for now. She is a dialysis patient. She is tolerating a little bit of diet but she is nauseated. 2. End-stage renal disease on hemodialysis. She had dialysis yesterday, 1.3 L of fluid has been removed. Will continue to monitor. 3. Type 2 diabetes. I will continue with same management for now and I will ask for a hemoglobin A1c. 4. Hypertension, stable. 5. History of congestive heart failure. We do have an echocardiogram done recently on 02/14/2019, and her ejection fraction is 74 with a left ventricular systolic function that is normal, mild degree of concentric left ventricular hypertrophy, the pulmonary pressure is estimated to be at 46-51 mmHg, so likely this patient has pulmonary hypertension and likely diastolic dysfunction. 6. Hypothyroidism. Her TSH is really low but this patient has been on dialysis, which can compromise her TSH level. She is not having symptoms of hypothyroidism or hyperthyroidism at this moment. Will continue with Synthroid. cc: Artemio Haas MD
[2019-07-12 14:19] LABS: HEPATITIS PROFILE ACUTE SEE COMMENTS
--- NOTE | 2019-07-12 14:51 | NEPHROLOGY PROGRESS NOTE ---
DATE: 07/12/2019 SUBJECTIVE: She states she is still having ongoing diarrhea. No other new complaints today. No more chills. OBJECTIVE: Vital Signs: Blood pressure 132/68, heart rate 83, respirations 16, afebrile. Generally: No acute distress. Skin: Warm and dry. Conjunctivae are pink. Neck: Neck veins are not distended. Heart: Regular. No gallops. Lungs: Equal. No crackles. Abdomen: Soft, minimally tender. Bowel sounds present. Extremities: No edema, clubbing, or cyanosis. IMPRESSION: 1. Chronic kidney disease 5D. She had her routine dialysis treatment yesterday. Electrolytes/acid base in target. 2. Anemia: Hemoglobin has fallen from 13.2 to 10.5. Observe. She does not meet criteria for transfusion. 3. Colitis. Blood cultures are negative. cc: Osbaldo Britt MD
[2019-07-12] MEDS: VANCOCIN PO SCH ×2 (14:52→21:05)
--- NOTE | 2019-07-12 15:56 | GASTROENTEROLOGY CONSULTATION ---
DATE: 07/12/2019 REASON FOR CONSULT: Diarrhea. HISTORY OF PRESENT ILLNESS: Ms. Gomez is a 48-year-old female with a past medical history of hypertension, hyperlipidemia, hypothyroid, insulin-dependent type 2 diabetes, cholecystectomy, obesity, and end-stage renal disease and is on dialysis which it is on Tuesdays, , and Saturdays. She presented to the ER on Monday night with episodes of diarrhea. She does not remember how many times she had gone, but felt like it was many times. Described her diarrhea as watery. Yesterday she had 2 to 3 episodes of watery diarrhea and today at least 3 to 4 times. Denied any fever, chills, shortness of breath or chest pain, but has abdominal cramping accompanied by nausea denied vomiting. She has denied noticing any blood in the stools. PAST MEDICAL HISTORY: Hypertension, insulin-dependent diabetes, hyperlipidemia, obesity, congestive heart failure, end-stage renal disease, MRSA infection on the right big toe. PAST SURGICAL HISTORY: Her right big toe was amputated in 2017 due to an MRSA infection. Cholecystectomy, peritoneal catheter placement in the right upper chest, tubaligation, eye surgery, and . SOCIAL HISTORY: No smoking, alcohol, or drug abuse. She is . She has 2 boys and 2 grand kids. She is on disability. FAMILY HISTORY: Mother had stomach cancer and at the age of 43. Dad had heart attack and at the age of 48. HOME MEDICATIONS: Levothyroxine, losartan, atorvastatin, calcium acetate, folic acid, amlodipine, carvedilol, furosemide, insulin Humulin 70 30, and glimepiride. ALLERGIES: Sulfa. REVIEW OF SYSTEM: As per HPI. Otherwise, 12 point review of system is negative. PHYSICAL EXAMINATION: Vital Signs: Temperature 98 degrees, pulse is 83, respirations of 16, blood pressure 132/68, oxygen saturation is 100% on room air. Weight 267 pounds, BMI 38.5 kg per meter square. General: Alert, oriented x3, good historian, answers questions appropriately, in no acute distress. HEENT: Pale conjunctivae. No icterus. PERRL. Neck: Supple. Abdomen: soft, Distended, tender. Active bowel sounds heard in all 4 quadrants. Lungs: Clear to auscultation in the anterior and posterior conner. No abnormal breath sounds heard. Cardiovascular: Regular rate and rhythm. No murmurs, rubs, or gallops heard on auscultation. Extremities: No clubbing, cyanosis, or edema noted, amputation of the right big toe. Neuro: alert, oriented x3. Nonfocal. Cranial nerves 2-12 grossly intact. LABORATORY DATA: WBCs 3.72, RBC 3.64, hemoglobin 10.5, hematocrit is 33.4, platelet count is 199,000. Sodium is 135, potassium is 3.9, chloride is 95, carbon dioxide is 23, anion gap is 17, BUN is 37, creatinine is 4.1, glucose is 195, calcium is 8.7, magnesium is 1.8. TSH is 0.03. Urinalysis showed trace of protein, glucose and bilirubin. Her stool studies showed Clostridium difficile toxin negative. Clostridium difficile antigen positive. IMAGING: Abdomen and pelvis CT showed small calcification in both kidneys. Tiny calculi cannot be entirely excluded. No evidence of urethral lithiasis obstructive uropathy. Fluid in the colon and small bowel consistent with enterocolitis. Chest x-ray showed stable chest. Abdominal ultrasound showed no evidence of obstruction of the portion of the inferior vena cava and hepatic vein increasing dilation of the common bile duct. IMPRESSION AND PLAN: Diarrhea Abdominal pain ESRD Hypertension Hypothyroid Insulin dependent type II diabetes Obesity PLAN: The plan is to continue patient with a diabetic diet. She is on probiotics. We will discontinue her Flagyl and Levaquin and start her with vancomycin 125 mg every 6 hours for 10 days for positive C-diff antigen She is on dialysis Monday, and Saturdays. We will monitor her CBC and BMP, continue to follow the plan of care of the nephrology team and her PCP. This plan was discussed with . Thank you for your consult. Please call us for any further questions or concerns. Dictated by CHRISTIAN Cooney for Hammad Acosta MD Physician Attestation I have seen and examined the patient. I have discussed and reviewed the the note by Lali GONZALES and agree with findings and plan as documented. In brief, Ms. Jacqueline Gomez is a 48 year old woman with HTN, HLD, IDDM2, h/o peritonitis, and ESRD on HD who presents with acute onset N/V/D found to have uncomplicated CDI. This is her initial episode. Mild leukocytosis. CT showed enterocolitis. Will start her on Vancomycin 125mg PO QID and continue for 10 days. Will stop other antibiotics. She is on probiotics. Advance diet as tolerated. Antiemetics prn. Will follow with you. Please call with questions. MTDD
[2019-07-12] MEDS: LIPITOR PO SCH (21:05)
[2019-07-13] MEDS: VANCOCIN PO SCH ×4 (02:50→20:55)
[2019-07-13 05:58] LABS: BASO# 0.02 X1000 (0.0-0.2); BASO% 0.4 % (0.0-0.8); EOS# 0.26 X1000 (0.0-0.7); EOS% 5.1 % (0.0-10.0); HEMATOCRIT 32.3 % (37.0-47.0); IMM GRAN# 0.02 X1000 (0.0-0.04); IMM GRAN% 0.4 % (0.0-0.5); LYMPH# 1.35 X1000 (1.2-3.4); LYMPH% 26.7 % (20.5-51.1); MCH 28.3 PG (27-31); MCV 91.5 FL (81-99); MONO# 0.48 X1000 (0.11-0.59); MONO% 9.5 % (1.7-9.3); MPV 10.5 FL (7.4-10.4); NEUT# 2.93 X1000 (1.4-6.5); NEUT% 57.9 % (42.2-75.2); PLT 224 X1000 (130-400); RBC 3.53 XMIL (4.2-5.4); RDW 14.9 % (11.5-14.5); WBC 5.06 X1000 (4.8-10.8)
[2019-07-13 06:14] LABS: HEMOGLOBIN A1C 9.7 % (4.8-6.0)
[2019-07-13 06:17] LABS: CREATININE 4.9 mg/dL (0.5-0.9); POTASSIUM 3.8 mmol/L (3.5-5.1)
[2019-07-13] MEDS: HEPARIN SUBQ SCH ×2 (06:47→17:04)
[2019-07-13] MEDS: SYNTHROID PO SCH ×2 (06:47→06:57)
[2019-07-13] MEDS: HUMULIN 70/30 SUBQ SCH ×2 (06:48→17:12)
[2019-07-13] MEDS: HUMULIN R SUBQ SCH ×3 (06:58→16:24)
[2019-07-13] MEDS ORDERED: NS 2,000 ML MISC PRN (07:39)
[2019-07-13] MEDS ORDERED: HEPARIN IV PRN (07:39)
[2019-07-13] MEDS: CULTURELLE PO SCH ×2 (11:48→20:55)
[2019-07-13] MEDS: NEPHRO-VITE PO SCH (11:49)
[2019-07-13] MEDS: PHOSLO PO SCH ×3 (11:49→17:04)
[2019-07-13] MEDS: NORVASC PO SCH (11:49)
[2019-07-13] MEDS: COREG PO SCH ×2 (11:50→20:55)
[2019-07-13] MEDS: LASIX PO SCH ×2 (11:50→20:55)
[2019-07-13] MEDS: COZAAR PO SCH (11:50)
--- NOTE | 2019-07-13 12:15 | PROGRESS NOTE ---
DATE: 07/13/2019 SUBJECTIVE: This patient is still complaining of abdominal pain. She is still having diarrhea, but it looks like she is a little bit better. She does have a C difficile antigen that is positive, so we started treatment with vancomycin p.o. We will continue with the same management. OBJECTIVE: Vital Signs: Temperature 98.1 degrees, pulse 82, respiratory rate 18, blood pressure 135/58, oxygen saturation 96 on room air. HEENT: Head normocephalic, no trauma. PERRLA. Neck: Neck supple. No JVD. Central trachea. Chest: Clear to auscultation. No wheezing. No rales. Abdomen: Soft, protuberant, generalized tenderness to palpation, but no rebound or signs of peritoneal irritation. Bowel sounds are hyperactive. Extremities: Trace edema. No clubbing, no cyanosis. Neurological examination: The patient is alert. She is oriented x3. No focal deficits. LABORATORY: WBC 5, hemoglobin 10, hematocrit 32.3, platelets 224. Sodium 136, potassium 3.8, chloride 97, bicarbonate 21. BUN 47, creatinine 4.1, glucose 147, calcium 9. Hemoglobin A1c 9.7. ASSESSMENT AND PLAN: 1. Clostridium difficile colitis, diarrhea, continue with the same management. She is getting vancomycin oral. Gastroenterology Department on board. 2. End-stage renal disease. At this moment, she is getting hemodialysis. We will continue to monitor. 3. Uncontrolled type 2 diabetes with a hemoglobin A1c of 9.7. We will continue with the same management for now. 4. Hypertension, stable. 5. History of congestive heart failure. She has a normal ejection fraction with a left ventricular systolic function that is normal on a recent echocardiogram on 02/14/2019. She does have some pulmonary hypertension, and likely she has also some diastolic dysfunction. 6. Hypothyroidism. We will monitor for now. She does not have symptoms of hyperthyroidism. cc: Artemio Haas MD
[2019-07-13] MEDS ORDERED: LEVAQUIN 250 MG/D5W 250 MG/50 ML IVPB IV SCH (14:30)
--- NOTE | 2019-07-13 14:41 | NEPHROLOGY PROGRESS NOTE ---
DATE: 07/13/2019 SUBJECTIVE: She states she is still having diarrhea. No abdominal pain. No chills or fevers. OBJECTIVE: Vitals: As recorded. No acute distress. Skin: Warm and dry. Conjunctivae are pink. Neck: Neck veins are not distended. Heart: Regular. No gallops. Lungs: Equal. No crackles. Abdomen: Soft, nontender. Bowel sounds present. Extremities: No edema, clubbing, or cyanosis. IMPRESSION: 1. Chronic kidney disease 5D. She is currently receiving her routine hemodialysis treatment. Electrolytes/acid base/anemia all in target. 2. Colitis. Stool C. difficile toxin negative but C. difficile antigen positive. She is receiving p.o. vancomycin. cc: Osbaldo Britt MD
[2019-07-13] MEDS: LIPITOR PO SCH (20:55)
--- NOTE | 2019-07-13 23:52 | PROVIDER PROGRESS NOTE ---
Progress Note S: No acute overnight events. She reports continued diarrhea that is more formed. Tolerating PO. No N/V/F, CP, SOB. O: T 97.8 HR 83 BP 128/71 HR 83 O2 98RA GEN: awake, alert, NAD HEENT: anicteric, MMM NECK: supple, no JVD PULM: CTAB, no wheezing ABD: soft NT/ND, NABS EXT: no cc NEURO: nonfocal LABS: 07/13/19 07/13/19 05:44 05:44 WBC 5.06 Hgb 10.0 L Plt Count 224 Sodium 136 Potassium 3.8 Chloride 97 L Carbon Dioxide 21 L BUN 47 H Creatinine 4.9 H Glucose 147 H A/P: MsNacho Gomez is a 48 year old woman with HTN, HLD, IDDM2, h/o peritonitis, and ESRD on HD who presents with acute onset N/V/D found to have uncomplicated CDI. This is her initial episode. Mild leukocytosis; resolved. CT showed enterocolitis. Continue Vancomycin 125mg PO QID and continue for 10 days. She is on probiotics. Will follow with you. # CDI # Anemia stable; no overt bleeding # ESRD on HD today # IDDM2: SSI Will follow with you
[2019-07-14] MEDS: VANCOCIN PO SCH ×4 (02:55→21:04)
[2019-07-14 06:05] LABS: CALCIUM 8.8 mg/dL (8.8-10.2); POTASSIUM 3.8 mmol/L (3.5-5.1)
[2019-07-14] MEDS: HUMULIN R SUBQ SCH ×5 (06:16→21:43)
[2019-07-14] MEDS ORDERED: INSULIN PEN NEEDLES ONE (06:52)
[2019-07-14] MEDS: SYNTHROID PO SCH (06:53)
[2019-07-14] MEDS: HEPARIN SUBQ SCH ×2 (06:53→17:18)
[2019-07-14] MEDS: ZOFRAN IV PRN (06:53)
[2019-07-14] MEDS: HUMULIN 70/30 SUBQ SCH ×2 (06:54→17:20)
[2019-07-14] MEDS: LASIX PO SCH ×2 (09:49→21:04)
[2019-07-14] MEDS: NORVASC PO SCH (09:50)
[2019-07-14] MEDS: CULTURELLE PO SCH ×2 (09:50→21:04)
[2019-07-14] MEDS: COZAAR PO SCH (09:50)
[2019-07-14] MEDS: PHOSLO PO SCH ×3 (09:50→17:17)
[2019-07-14] MEDS: NEPHRO-VITE PO SCH (09:51)
[2019-07-14] MEDS: COREG PO SCH ×2 (09:51→21:04)
--- NOTE | 2019-07-14 10:57 | PROVIDER PROGRESS NOTE ---
Progress Note S: She reports having some NBNB emesis overnight after having Steak Out. She reports some improvement in abdominal cramping. She has had appoximately 6 diarrheal episodes overnight and this AM. No hematochezia or melena. O: Last Vital Signs Temp 98.1 F 07/14/19 08:28 Pulse 87 07/14/19 08:28 Resp 14 07/14/19 08:28 BP 146/72 07/14/19 08:28 Pulse Ox 96 07/14/19 08:28 Height 5 ft 10 in Weight 292 lb 3.2 oz GEN: awake, alert, NAD HEENT: anicteric, MMM NECK: supple, no JVD PULM: CTAB, no wheezing ABD: obese, soft NT/ND, NABS EXT: no cc NEURO: nonfocal LABS: 07/14/19 05:10 Sodium 137 Potassium 3.8 Chloride 99 Carbon Dioxide 28 BUN 30 H Creatinine 4.0 H A/P: Ms. Jacqueline Gomez is a 48 year old woman with HTN, HLD, IDDM2, h/o peritonitis, and ESRD on HD who presents with acute onset N/V/D found to have uncomplicated CDI. This is her initial episode. Mild leukocytosis; resolved. CT showed enterocolitis. Continue Vancomycin 125mg PO QID and continue for 10 days. She is on probiotics. Will follow with you. # CDI: cont vancomycin, day 3 of 10; follow BMs; avoid dairy # Anemia stable; no overt bleeding # ESRD on HD today # IDDM2: SSI Will follow with you. Please call with questions.
--- NOTE | 2019-07-14 11:47 | PROGRESS NOTE ---
DATE: 07/14/2019 SUBJECTIVE: This patient is still complaining of diarrhea, at least 6 bowel movements during the night, and nausea and vomiting today. Her abdomen seems to be better, more soft and less distended. She does have a C. difficile antigen that is positive. We started treatment with vancomycin a couple days ago. We will continue with the same management. OBJECTIVE: Vital Signs: Temperature 98.1 degrees, pulse 87, respiratory rate 14, blood pressure 146/72, oxygen saturation 96 on room air. HEENT: Head normocephalic. No trauma. PERRLA. Neck: Supple. No JVD. No masses. Central trachea. Chest: Clear to auscultation. No wheezing. No rales. Abdomen: Soft, protuberant. Generalized tenderness to palpation but no rebound or signs of peritoneal irritation. Bowel sounds are hyperactive. Extremities: Trace edema. No clubbing, no cyanosis. Neurological Examination: The patient is alert. She is oriented. No focal deficits. Laboratory: Sodium 137, potassium 3.8, chloride 99, bicarbonate 28, BUN 30, creatinine 4, glucose 162, calcium 8.8. ASSESSMENT AND PLAN: 1. Clostridium difficile colitis, diarrhea. Continue with the same management. She is getting oral vancomycin. Gastroenterology department on board. 2. Nausea and vomiting. Continue with nausea medication. 3. End-stage renal disease. She is on hemodialysis. Continue with the same management. 4. Uncontrolled type 2 diabetes with a hemoglobin A1c of 9.7. Continue with same management for now. 5. Hypertension, stable. 6. History of congestive heart failure with a normal ejection fraction and left ventricular systolic function that is normal on a recent echocardiogram on 02/14/2019. She does have some pulmonary hypertension and likely she has some diastolic dysfunction. 7. Hypothyroidism. Continue to monitor for now. TSH is low. No signs of hyperthyroidism. cc: Artemio Haas MD
[2019-07-14] MEDS: LIPITOR PO SCH (21:04)
[2019-07-15] MEDS: VANCOCIN PO SCH ×4 (01:34→20:08)
[2019-07-15 05:58] LABS: CALCIUM 9.1 mg/dL (8.8-10.2); CREATININE 4.5 mg/dL (0.5-0.9); POTASSIUM 3.8 mmol/L (3.5-5.1)
[2019-07-15 06:02] LABS: FREE T4 1.3 ng/dL (0.93-1.70); TSH 0.13 uIUmL (0.27-4.20)
[2019-07-15] MEDS: SYNTHROID PO SCH (06:36)
[2019-07-15] MEDS: HUMULIN 70/30 SUBQ SCH ×2 (06:36→18:43)
[2019-07-15] MEDS: HEPARIN SUBQ SCH ×2 (06:36→18:46)
[2019-07-15] MEDS: HUMULIN R SUBQ SCH ×4 (06:53→21:11)
[2019-07-15] MEDS: PHOSLO PO SCH ×3 (08:16→18:50)
[2019-07-15] MEDS: NEPHRO-VITE PO SCH (08:16)
[2019-07-15] MEDS: LASIX PO SCH ×2 (08:16→20:08)
[2019-07-15] MEDS: NORVASC PO SCH (08:16)
[2019-07-15] MEDS: COZAAR PO SCH (08:16)
[2019-07-15] MEDS: CULTURELLE PO SCH ×2 (08:16→20:07)
[2019-07-15] MEDS: COREG PO SCH ×2 (08:16→20:08)
--- NOTE | 2019-07-15 15:49 | GASTROENTEROLOGY PROGRESS NOTE ---
DATE: 07/15/2019 SUBJECTIVE: Ms. Gomez 48 year old female was sitting in the chair, denied any nausea, vomiting, but had two regular bowel movements this morning. OBJECTIVE: Vital Signs: Temperature 98.1 degrees, pulse 76, respirations 15, blood pressure is 126/77, and oxygen saturation 99% on room air. Her weight is 291.5 pounds. BMI is 41.09 kg m per m squared. General: She is alert and oriented x3, and in no acute distress. HEENT: Pale conjunctivae. No icterus. PERRL. Neck: Supple. Abdomen: Soft, distended, and nontender. Active bowel sounds in all 4 quadrants. Lungs: Clear to auscultation in the anterior and posterior conner. No abnormal breath sounds heard. Cardiovascular: Regular rate and rhythm. No murmurs, rubs, or gallops heard on auscultation. She has a dialysis catheter on the right upper chest. Extremities: No clubbing, cyanosis, or edema noted. She has her right big toe amputed. Neurologic: Alert and oriented x3. LABORATORY AND IMAGING: WBCs 5.06, RBC 3.53, hemoglobin 10.0, hematocrit 32.5, and platelet count is 24,000. Sodium 135, potassium is 3.8. Chloride is 99, carbon dioxide is 24, anion gap 12, BUN is 36, creatinine is 4.5, glucose is 137, and calcium is 9.5. C-diff antigens were positive. CT of the pelvis and abdomen showed small calcifications in both kidneys. Fluid in the colon, small bowel consistent with enterocolitis. Multilevel spinal stenosis. IMPRESSION AND PLAN: C-diff colitis Anemia Abdominal pain ESRD on Dialysis Insulin dependent diabetes Hypertension Hypothyroid Obesity PLAN: Patient's diarrhea is under control, we will continue with PO vancomycin 125 mg for 10 days, probiotics, antiemetics Zofran PRN for nausea and vomiting. We will continue to monitor CBC and BMP and her diarrhea. She is on dialysis for her ESRD Monday, and Monday. Her insulin, hypertension and hypothyroidism is managed by her PCP. Discussed the risk of obesity, advised to follow a health diet and exercise plan, patient acknowledges understanding of the instructions. We will continue to follow the plan of care per PCP and nephrology team. This the plan was discussed with Dr. Barba. Please call us for further questions or concerns. Dictated by CHRISTIAN Cooney for Aroldo Barba MD cc: Aroldo Barba MD I have seen and examined the patient myself and I agree with the above plan of care. I have discussed the above with the patient and all questions were answered. Please call us with any further questions. GIANCARLOD
[2019-07-15] MEDS: LIPITOR PO SCH (20:08)
--- NOTE | 2019-07-15 20:54 | NEPHROLOGY PROGRESS NOTE ---
DATE: 07/15/2019 SUBJECTIVE: She is feeling well overall. She is still having diarrhea, but she is eating. OBJECTIVE: Blood pressure 160/75, heart rate 77, respirations 17, afebrile. Generally in no acute distress. Skin is warm and dry. Neck veins are not appreciated. Heart is regular. No gallops. Lungs are equal. No crackles. Abdomen: Soft, obese, nontender. Bowel sounds are present. Extremities have minimal edema. Left upper arm AV fistula has no palpable thrill or bruit. IMPRESSION: 1. Chronic kidney disease, 5D. We will continue her routine Monday, , Monday dialysis plan, using her tunneled dialysis catheter. 2. Electrolytes/acid base/anemia. All in target. 3. Diarrhea. Improving. 4. Dialysis access: No intervention during her hospitalization. cc: Osbaldo Britt MD
[2019-07-16] MEDS: VANCOCIN PO SCH ×3 (01:42→15:43)
[2019-07-16] MEDS ORDERED: HEPARIN IV PRN (06:07)
[2019-07-16] MEDS ORDERED: NS 2,000 ML MISC PRN (06:07)
[2019-07-16] MEDS ORDERED: TIGHT: 0.2 ML/HR FOR DIALYSIS MISC PRN (06:07)
[2019-07-16] MEDS: HUMULIN R SUBQ SCH ×2 (06:10→15:42)
[2019-07-16] MEDS: HEPARIN SUBQ SCH (06:22)
[2019-07-16] MEDS: HUMULIN 70/30 SUBQ SCH (06:25)
--- NOTE | 2019-07-16 06:44 | PROGRESS NOTE ---
DATE: 07/15/2019 INTERVAL HISTORY: No acute events overnight. Her diarrhea frequency is decreasing as compared to before, and she is feeling better. I discussed about pathophysiology and clinical course of C. diff. I have answered all of her questions. VITALS: Temperature 97.8 degrees, pulse 70, respiratory 14, blood pressure 170/90, and saturating 100% on room air. PHYSICAL EXAMINATION: General: Morbidly obese not in acute distress. HEENT: Oral cavity is moist. Lungs: Air entry bilaterally equal. No wheeze, rhonchi or crackles. Heart: S1, S2 normal. No murmur or gallop. Abdomen: Soft, nontender. Active bowel sounds. Extremities: No lower extremity edema. Neurologic: She is alert and oriented x3. LABORATORY: Labs are suggestive of electrolytes within acceptable range. Her TSH is on the lower side, but she doesn't have clin ical features of thyrotoxicosis except diarrhea. She is also listed to be taking levothyroxine of 75 mcg, and I am going to change her current dose to 75 mcg starting tomorrow. I will advise outpatient follow-up. ASSESSMENT AND PLAN: 1. C. Difficile colitis. Continue oral vancomycin. Continue Culturelle. 2. End-stage renal disease on hemodialysis. 3. Uncontrolled type 2 diabetes mellitus, insulin dependent. 4. Continue insulin NPH 70/30. 5. Essential hypertension, stable. Continue losartan and amlodipine. 6. Others: Continue atorvastatin for hyperlipidemia, calcium acetate for hyperphosphatemia, carvedilol for essential hypertension, folic acid, and multivitamin tablets as well as furosemide for end-stage renal disease, and heparin for DVT prophylaxis. 7. Disposition: If the patient's diarrhea is reasonably controlled, plan is to discharge her home tomorrow. Her questions have been answered. cc: Shaquille Rodriguez MD [facility] CENTERLarissa
[2019-07-16] MEDS ORDERED: SYNTHROID PO SCH (07:00)
[2019-07-16 07:46] LABS: HEMATOCRIT 33.5 % (37.0-47.0); HEMOGLOBIN 10.6 g/dL (12.0-16.0); MCH 28.9 PG (27-31); MCHC 31.6 g/dL (33-37); MCV 91.3 FL (81-99); MPV 9.8 FL (7.4-10.4); RBC 3.67 XMIL (4.2-5.4); RDW 15.2 % (11.5-14.5); WBC 7.16 X1000 (4.8-10.8)
[2019-07-16] MEDS: PHOSLO PO SCH ×2 (07:54→15:44)
[2019-07-16 08:33] VITALS: BP 148/73
--- NOTE | 2019-07-16 12:20 | NEPHROLOGY PROGRESS NOTE ---
DATE: 07/16/2019 SUBJECTIVE: She has not had liquid bowel movement since yesterday sometime. No BM's overnight. No shortness of breath or other complaints. OBJECTIVE: Vital Signs: Blood pressure 180/83, heart rate 78, respiration 18, afebrile. Generally: No acute distress. Skin: Warm and dry. Neck: Neck veins are not distended. Heart: Regular with soft murmur. Lungs: Have equal breath sounds. No crackles. Abdomen: Obese, soft, nontender. Bowel sounds present. Extremities: No edema, clubbing or cyanosis. IMPRESSION: 1. Chronic kidney disease 5 D. She will have her routine hemodialysis treatment today. 2. Clostridium difficile colitis. She is on oral vancomycin. 3. Anemia. Hemoglobin has been stable, but she has not had recent measure since the fifth, so we will collect 1 today prior to dialysis. 4. Okay for discharge from my perspective. cc: Osbaldo Britt MD
--- NOTE | 2019-07-16 14:06 | GASTROENTEROLOGY PROGRESS NOTE ---
DATE: 07/16/2019 SUBJECTIVE: Ms. Gomez is a 48-year-old female sitting in bed, waiting to go for her dialysis and was excited that she is getting to go home today. She has denied any nausea or vomiting and had regular bowel movement this morning. OBJECTIVE: Vital Signs: Temperature is 97.8 degrees, pulse is 80, respirations of 15, blood pressure is 148/73, oxygen saturation 99% on room air. Her weight is 284.4 pounds. BMI is 40.9 kg/m2. General: She is alert, oriented x3, and in no acute distress. HEENT: Pale conjunctivae. No icterus. PERRL. Neck: Supple. Abdomen: Soft, distended, nontender. Active bowel sounds heard in all 4 quadrants. Lungs: Clear to auscultation in anterior and posterior conner. No abnormal breath sounds heard. Cardiovascular: Regular rate and rhythm. No murmurs, rubs, or gallops heard on auscultation. She has a dialysis catheter on the right upper chest. Extremities: No clubbing, cyanosis, or edema noted, right big toe amputated. Neurologic: She is alert, oriented x3. LAB: WBC 7.6, RBCs 3.67, hemoglobin is 10.6, hematocrit is 33.5, platelet count is 282,000. Sodium is 135, potassium is 3.8, chloride is 99, carbon dioxide 24, anion gap is 12, BUN is 36, creatinine is 4.5, glucose is 137, calcium is 9.1. Urinalysis from 07/10/2019 showed trace of protein, trace of glucose, a small amount of bilirubin. Abdomen and pelvis CT on 07/11 showed small calcifications in both kidneys. No evidence of ureterolithiasis or obstructive uropathy. Fluid in the colon and small bowel consistent with enterocolitis. Her stool cultures from 07/12 showed that her C. difficile toxin was negative, but her C. difficile antigen was positive. IMPRESSION AND PLAN: C-Diff colitis Anemia Abdominal pain ESRD on dialysis Insulin dependent diabetes Hypertension Hypothyroid Obesity PLAN: Patient's diarrhea is well under control. She had only 1 bowel movement today. We will continue with PO vancomycin 125 mg for 10 days for her C-diff, probiotics, antiemetics, Zofran p.r.n. for nausea and vomiting. She is on dialysis for her end-stage renal disease, and has it on Tuesdays, , and Saturdays. Her insulin, hypertension, and hypothyroid are managed by her PCP. Discussed the risk of obesity to the patient. Advised her to follow a healthy diet and exercise plan. Patient acknowledges understanding of the instructions. We will continue to monitor her CBC and BMP, continue to follow the plan of care per primary care team and nephrology team. The patient is supposed to get discharged today. We will follow up with her as an outpatient in 4 to 6 weeks after she is discharged from the hospital. This plan was discussed with . Please call us for any further questions or concerns. Dictated by CHRISTIAN Cooney for Corine Zuleta MD cc: Corine Zuleta MD MTDD
[2019-07-16] MEDS: COREG PO SCH (15:41)
[2019-07-16] MEDS: LASIX PO SCH (15:41)
[2019-07-16] MEDS: CULTURELLE PO SCH (15:41)
[2019-07-16] MEDS: COZAAR PO SCH (15:41)
[2019-07-16] MEDS: NORVASC PO SCH (15:42)
[2019-07-16] MEDS: NEPHRO-VITE PO SCH (15:42)
--- NOTE | 2019-07-17 07:13 | DISCHARGE SUMMARY ---
ADMISSION DATE: 07/11/2019 DISCHARGE DATE: 07/16/2019 DISCHARGE DISPOSITION: Home. DISCHARGE CONDITION: Hemodynamically stable. She is tolerating oral diet well without nausea or vomiting. No abdominal cramps. She has not had any bowel movements in the last 24 hours. We discussed about pathophysiology of C. Diff, and natural history of disease. We answered all of her questions. DISCHARGE DIAGNOSES: 1. Clostridium difficile gastroenteritis. 2. Low TSH due to use of levothyroxine with normal free T4. OTHER DIAGNOSES: 1. End-stage renal disease on Monday, , Monday dialysis. 2. Uncontrolled insulin-dependent type 2 diabetes mellitus, now with better control of blood sugars. 3. Essential hypertension. 4. Hyperlipidemia. 5. Hyperphosphatemia. 6. Morbid obesity. 7. Hypothyroidism. CONSULTATION DURING HOSPITAL ADMISSION: 1. Dr. Britt Nephrology. 2. Dr. Acosta Gastroenterology. DISCHARGE MEDICATIONS: 1. Atorvastatin 40 mg at nighttime. 2. Amlodipine 10 mg daily. 3. Carvedilol 12.5 mg b.i.d. 4. Losartan 100 mg daily. 5. Folic Acid vitamin B complex 0.8 mg daily. 6. Furosemide 120 mg b.i.d. 7. Levothyroxine 75 mcg daily. Her dose was recently decreased from 100 mcg as an outpatient. 8. Lactobacillus 1 capsule b.i.d. 90 capsules have been prescribed. 9. Insulin Humulin 70/30, 75 units b.i.d. 10. Calcium acetate 667 mg t.i.d. with meals. 11. Vancomycin 125 mg every 6 hours, 32 capsules have been prescribed. VITALS: At the time of discharge, temperature 97.8 degrees, pulse 80, respiratory rate 15, blood pressure 148/73, and saturating 99% on room air. PHYSICAL EXAMINATION: General: Patient does not appear in acute distress. HEENT: Oral cavity is moist. Lungs: Air entry bilaterally equal. No wheeze, rhonchi, or crackles. Cardiovascular: S1 and S2 normal. No murmur, rub, or gallop. Abdomen: Obese, soft, and nontender. No lower extremity edema. Active bowel sounds. She is alert and oriented x3. Left arm AV fistula has not matured yet. SIGNIFICANT LABORATORY DURING HOSPITAL ADMISSION AND DISCHARGE: WBC 7.1, hemoglobin 10.6, and platelet 282,000. BUN 36, creatinine 4.5, blood sugar 180. TSH 0.13, free T4 is 1.3. SIGNIFICANT MICROBIOLOGY DURING HOSPITAL ADMISSION: Clostridium difficile antigen was positive. Clostridium difficile toxin was negative. Stool occult blood test was also positive. Urine culture did not have any growth. Stool has multiple WBCs. Stool culture was negative for salmonella shigella, Campylobacter or E. Coli 157.7. Blood culture did not have any growth. SIGNIFICANT IMAGING DURING HOSPITAL ADMISSION: Abdomen pelvis CT had small calcification in both kidneys, which could be vascular. The possibility of tiny calculi could not be entirely excluded. However, there was no evidence of ureteral lithiasis or obstructive uropathy. There was fluid in the colon and small intestine consistent with enterocolitis. There was multilevel spinal stenosis. HOSPITAL COURSE SUMMARY: Ms. Gomez is a 48 year old woman with past history of morbid obesity, and end-stage renal disease, who presented initially on 06/11/2019 with chief complaints of 1-day history of nonbloody diarrhea. She did not have any recent use of antibiotics. She has had about 12 hours onset of persistent watery diarrhea, which was not non mucoid. She did not have any travel history. She also had persistent vomiting and nausea for 12 hours without any hematemesis, fever or chills. She contacted her surgical technologist, and she was advised to come to the emergency room. In the emergency room, patient complained of abdominal crampy intermittent pain without any aggravating and relieving factors. She had generalized weakness and postural lightheadedness so the hospitalist team was consulted for further management. She underwent CT scan which had detected gastroenteritis. She was started on Flagyl and Fortaz. Stool cultures and stool analysis were sent, and Gastroenterology was also consulted. The stool test came positive for C. Difficile antigen. She was started on oral vancomycin, and she had significant improvement within 48 hours. At the time of discharge, she was eating and tolerating diet well without any nausea or vomiting, and her diarrhea frequency has decreased so it was decided to discharge her. She was also advised to have a follow up with regular physician considering her low TSH as thyrotoxicosis could contribute to diarrhea. TIME SPENT: Less than 30 minutes spent discharging the patient. Her questions were satisfactorily answered. cc: MD LOLA Bridges
== END 2019-07-16 15:46 | disposition home or self-care (01) | DRG 371 ==
LOC: ED 21:17 → 1N 07-11 05:41 → SUATTDRO 07-11 05:41
PROVIDERS: ATTEND Internal Medicine